=== PATIENT | male | born 1970 | race Caucasian/White ===

== ENCOUNTER 2020-11-14 20:18 | Inpatient (IN) | payer BC, MEDICAID ==
[~2020-11-14] VITALS: Ht 175.3 cm; Wt 92.3 kg
[~2020-11-14 20:18] MED LIST: ALBU6.7H3 INH; IBUP-1572 PO; LANTUS SQ; etomidate 2mg/ml inj. ONE; sod chloride 0.9% 10ml flush syringe IV ONE
[2020-11-14] MEDS ORDERED: dexamethasone sod phosphate 10mg/ml inj IV STA (20:53)
[2020-11-14] MEDS ORDERED: temazepam 15mg capsule PO PRN (21:00)
[2020-11-14 21:05] LABS: ALANINE AMINOTRANSFERASE 103 U/L (12-78); ALBUMIN 2.8 G/DL (3.4-5.0); ALBUMIN/GLOBULIN RATIO 0.6 (1.1-1.5); ALKALINE PHOSPHATASE 59 IU/L (46-116); ANION GAP 13 (8-16); ASPARTATE AMINO TRANSFERASE 87 U/L (10-37); BILIRUBIN,TOTAL 0.4 MG/DL (0.1-1.0); BLOOD UREA NITROGEN 20 MG/DL (7-18); BUN/CREATININE RATIO 18.7 (5.4-32.0); CHLORIDE 94 MMOL/L (99-107); CREATININE 1.07 MG/DL (0.60-1.10); GLUCOSE 246 MG/DL (70-104); POTASSIUM 3.8 MMOL/L (3.5-5.1); SODIUM 130 MMOL/L (135-145); TOTAL CARBON DIOXIDE 23.2 MMOL/L (24-32); TOTAL PROTEIN 7.6 G/DL (6.4-8.2); eGFR 73 ML/MIN
[2020-11-14 21:07] LABS: ABG BASE EXCESS -3.3 mmol/L (-2.0-2.0); ABG OXYGEN SATURATION 92.8 % (94-97); ABG PCO2 (T) 26.5 mmHg (35.0-48.0); ABG PO2 (T) 70.4 mmHg (75.0-100.0); ALLEN'S TEST POSITIVE; FCOHb 0.3 % (0.0-3.9); FLOW 15 L/min; FMetHb 0.2 % (0.0-1.5); FO2Hb 92.3 % (94-97); PATIENT TEMPERATURE 38.2; TOTAL HEMOGLOBIN 17.1 G/dl (14.0-18.0)
[2020-11-14] MEDS ORDERED: CefTRIAXone/D5W-Rocephin 1gm 50 ML IV ONE (21:10)
[2020-11-14] MEDS ORDERED: azithromycin/NS 500mg/250ml 250 ML IV ONE (21:10)
[2020-11-14 21:26] LABS: D-DIMER 0.33 MG/L FEU (0-0.50); PARTIAL THROMBOPLASTIN TIME 33 SECONDS (22-32)
[2020-11-14 21:31] LABS: BASOPHILS % (AUTO) 0.2 % (0-1); EOSINOPHILS % (AUTO) 0 % (0-6); HEMATOCRIT 48.1 % (42.0-52.0); HEMOGLOBIN 16.4 g/dl (14.0-17.9); LYMPHOCYTES # (AUTO) 1.1 X10'3 (1.1-4.8); LYMPHOCYTES % (AUTO) 19.8 % (21-51); MEAN CORPUSCULAR HEMOGLOBIN 31.7 PG (27.0-31.0); MEAN CORPUSCULAR HGB CONC 34.2 g/dL (33.0-36.5); MEAN CORPUSCULAR VOLUME 92.8 FL (78-98); MEAN PLATELET VOLUME 7.5 FL (7.4-10.4); MONOCYTES # (AUTO) 0.4 X10'3 (0-0.9); PLATELET COUNT 228 X10'3 (140-440); RED BLOOD COUNT 5.18 X10'6 (4.70-6.10); RED CELL DISTRIBUTION WIDTH 13.4 % (11.5-14.5); WHITE BLOOD COUNT 5.5 X10'3 (4.5-11.0)
[2020-11-14 21:40] LABS: C-REACTIVE PROTEIN 6.27 MG/DL (0.0-0.5); FERRITIN 2198 NG/ML (26-388); LACTATE DEHYDROGENASE 508 U/L (85-227)
[2020-11-14] MEDS ORDERED: ASPI-1397 PO (22:06)
[2020-11-14] MEDS ORDERED: ATOR40TA72 PO (22:06)
[2020-11-14] MEDS ORDERED: FLAS1KIT2 (22:06)
[2020-11-14] MEDS ORDERED: LIRA0.6P SQ (22:06)
--- NOTE | 2020-11-14 22:19 | NUR ---
PER PT, OK TO GIVE INFO TO , ANA - PTS UPDATED ON PLAN OF CARE. SHE IS AWARE PT IS BEING ADMITTED AND THAT THERE IS A NO VISITOR POLICY FOR COVID POSITIVE PATIENTS.
[2020-11-14] MEDS ORDERED: ondansetron/PF 4mg/2ml inj IV PRN (22:45)
[2020-11-14] MEDS ORDERED: HYDROcodone/acetaminophen 10/325mg tab PO PRN (22:45)
[2020-11-14] MEDS ORDERED: magnesium hydroxide 30ml (MOM) UD suspension PO PRN (22:45)
[2020-11-14] MEDS ORDERED: normal saline 1000ml 1,000 ML IV SCH (22:45)
[2020-11-14] MEDS ORDERED: morphine 2 MG/ML inj. syringe IV PRN ×2 (22:45)
[2020-11-14] MEDS ORDERED: HYDROcodone/acetaminophen 5mg/325mg tablet PO PRN (22:45)
[2020-11-14] MEDS ORDERED: bisacodyl 10mg suppository rectal RC PRN (22:45)
[2020-11-14] MEDS ORDERED: acetaminophen 325mg tablet PO PRN ×2 (22:45)
[2020-11-14] MEDS ORDERED: HYDROmorphone inj. 0.5 MG/0.5 ML DISP.SYRIN IV PRN (22:45)
[2020-11-14] MEDS ORDERED: ondansetron 4mg rapidly disintigrating tab PO PRN (22:45)
[2020-11-14] MEDS ORDERED: diphenhydrAMINE 50 mg/ml inj IV PRN (22:45)
[2020-11-14] MEDS ORDERED: diphenhydrAMINE 25mg capsule PO PRN (22:45)
[2020-11-14] MEDS ORDERED: mag hydrox/Alum hydrox/simeth 30ml oral suspension PO PRN (22:45)
[2020-11-14] MEDS ORDERED: acetaminophen 650mg rectal suppository RC PRN (22:45)
[2020-11-14] MEDS ORDERED: ipratropium/albuterol 3ml nebule NEB PRN (22:45)
[2020-11-14] MEDS ORDERED: MESSAGE TO PHARMACY PO ONE (22:50)
[2020-11-14] MEDS ORDERED: dextrose ORAL solution 15 GM/59 ML bottle PO PRN ×2 (22:50)
[2020-11-14] MEDS ORDERED: glucagon, human recombinant 1mg kit SUBCUT PRN (22:50)
[2020-11-14] MEDS ORDERED: dextrose 50%-water 50ml dispensing syringe IV PRN (22:50)
[2020-11-14 23:30] LABS: HEMOGLOBIN A1C 8.6 % (4.5-6.2)
[2020-11-14 23:48] LABS: CREATINE KINASE 330 U/L (39-308); ETHANOL < 0.010 GM/DL (0.0-0.010); LIPASE 329 U/L (73-393); MAGNESIUM 2.1 MG/DL (1.5-2.4); PHOSPHORUS 3.4 MG/DL (2.3-4.5)
--- NOTE | 2020-11-15 01:27 | NUR ---
RT paged, called back and discussed concerning pts CT and SPO2.Per RT, pt would tolerate with NR 15L, will come assess.
--- NOTE | 2020-11-15 01:40 | NUR ---
RT AT BEDSIDE, TRIALING PT ON HIGH FLOW N/C, PT SAT'S TO THE 90'S WITH NO CHANGE IN WOB. WILL GO TO CT, CT PAGED.
--- NOTE | 2020-11-15 02:18 | NUR ---
PT RETURNED FROM CT, SATS 88% ON ONE OXYGEN SOURCE, TRANSFERRED TO HOSPITAL BED.
--- NOTE | 2020-11-15 03:00 | NUR ---
PT. TOLERATING WATER, REQUESTING APPLESAUCE.
--- NOTE | 2020-11-15 03:24 | NUR ---
PT UP TO BEDSIDE COMMODE, SATURATIONS DOWN TO MID 80'S ON 30 LPM. HAS LOOSE DIARRHEA BM WITH URINE OUT, UNABLE TO CATCH U/A. MOVED BACK INTO BED, COACHED BREATHING, SATURATIONS IMPROVED TO 91%, PT. GIVEN APPLESAUCE AND CALL LIGHT.
--- NOTE | 2020-11-15 06:43 | NUR ---
SPOKE TO ANA UPDATED ON POC.
[2020-11-15 07:18] LABS: BASOPHILS % (AUTO) 0.3 % (0-1); EOSINOPHILS % (AUTO) 0 % (0-6); HEMATOCRIT 46.1 % (42.0-52.0); HEMOGLOBIN 15.7 g/dl (14.0-17.9); LYMPHOCYTES # (AUTO) 0.8 X10'3 (1.1-4.8); LYMPHOCYTES % (AUTO) 19.4 % (21-51); MEAN CORPUSCULAR HEMOGLOBIN 31.9 PG (27.0-31.0); MEAN CORPUSCULAR HGB CONC 34.2 g/dL (33.0-36.5); MEAN CORPUSCULAR VOLUME 93.3 FL (78-98); MEAN PLATELET VOLUME 7.3 FL (7.4-10.4); MONOCYTES # (AUTO) 0.3 X10'3 (0-0.9); MONOCYTES % (AUTO) 6.7 % (2-12); NEUTROPHILS # (AUTO) 2.9 X10'3 (1.8-7.7); NEUTROPHILS % (AUTO) 73.6 % (42-75); PLATELET COUNT 230 X10'3 (140-440); RED BLOOD COUNT 4.94 X10'6 (4.70-6.10); RED CELL DISTRIBUTION WIDTH 13.3 % (11.5-14.5); WHITE BLOOD COUNT 3.9 X10'3 (4.5-11.0)
[2020-11-15 07:48] LABS: ALANINE AMINOTRANSFERASE 99 U/L (12-78); ALBUMIN 2.5 G/DL (3.4-5.0); ALBUMIN/GLOBULIN RATIO 0.6 (1.1-1.5); ALKALINE PHOSPHATASE 55 IU/L (46-116); ANION GAP 11 (8-16); ASPARTATE AMINO TRANSFERASE 77 U/L (10-37); BILIRUBIN,TOTAL 0.4 MG/DL (0.1-1.0); BLOOD UREA NITROGEN 19 MG/DL (7-18); BUN/CREATININE RATIO 22.4 (5.4-32.0); CALCIUM 7.8 MG/DL (8.5-10.1); CHLORIDE 100 MMOL/L (99-107); CHOL/HDL RATIO 4.7 (0.00-4.99); CHOLESTEROL 85 MG/DL (0-200); CREATININE 0.85 MG/DL (0.60-1.10); GLUCOSE 278 MG/DL (70-104); HDL CHOLESTEROL 18 MG/DL (35-60); LDL CHOLESTEROL 41 MG/DL (50-100); POTASSIUM 4.2 MMOL/L (3.5-5.1); SODIUM 134 MMOL/L (135-145); TOTAL CARBON DIOXIDE 23.2 MMOL/L (24-32); TOTAL PROTEIN 6.9 G/DL (6.4-8.2); TRIGLYCERIDES 150 MG/DL (20-135); eGFR > 90 ML/MIN
[2020-11-15] MEDS ORDERED: azithromycin 250mg tablet PO SCH (08:00)
[2020-11-15] MEDS: docusate sod 100mg capsule PO SCH ×2 (08:00→20:37)
[2020-11-15] MEDS ORDERED: dexamethasone inj 6 MG in normal saline 50ml IV soln 50 ML IV SCH (08:00)
[2020-11-15] MEDS: enoxaparin 40mg/0.4ml syringe SUBCUT SCH ×2 (08:27→20:38)
[2020-11-15] MEDS: dexamethasone 4mg/ml inj IV SCH ×2 (08:28→20:37)
[2020-11-15] MEDS: pantoprazole 40mg Tablet.DR PO SCH (08:28)
[2020-11-15] MEDS ORDERED: REMDESIVIR INJ 200 MG in normal saline 100ml IV soln 100 ML IV ONE (08:40)
--- NOTE | 2020-11-15 11:15 | NUR ---
RELIEVING NURSE FOR BREAK. PT IS RESTING QUIETLY ON BED WITH NRB AND HI FLOW SALTER, 02 SAT IS 85%. PT STATED HE GETS SOB WITH MINIMAL ACTIVITY, JUST USED BEDSIDE COMMODE. , TALKING 5 TO 6 WORD SENTENCES, EATING BREAKFAST,
--- NOTE | 2020-11-15 11:21 | NUR ---
REPORT TO TIFF LUKE REGARDING PULSE OX READING
--- NOTE | 2020-11-15 11:24 | NUR ---
spoke to rt regarding pt spo2 85 -86 % on 15l salter and 15 l non rebreather as per rt staed that they will come by to see the pt ,paged dr corrigan have not recived call yet.as per rt change neb tx to mdi albuterol as pt is covid positive.
--- NOTE | 2020-11-15 11:25 | NUR ---
PAGED DR ZHAO FOR THE ORDERS.
--- NOTE | 2020-11-15 11:34 | NUR ---
RT AT BEDSIDE.
--- NOTE | 2020-11-15 11:45 | NUR ---
DR ZHAO CAME TO SEE THE PT AFTER PAGING THE DR ,NOTIFIED PT CONDITION TO THE PROVIDER THAT PT HAS CARDIA MONITOR CHANGES AND CLAMMY,PT SPO2 IN BTW 83-88 ON 30 L NON REBREATHER AND SALTER AND PT SPO2 DROP DOWN WHEN PT GETS UP TO USE BEDSIDE COMMODE OR EAT ,PT IS NOT DOING WELL OVERALL . PER DR ZHAO ORDER STAT EKG,HIGH FLOW O2 IF DOES NOT WORK THEN BIPAP ORDER,JUDGE CATHETER FOR BEDREST. WILL FOLLOW THE ORDERS.
[2020-11-15] MEDS: ALBUTEROL INHALER 1 PUFF/90 MCG INHALER IH PRN (11:56)
--- NOTE | 2020-11-15 12:17 | NUR ---
RT AT THE BEDSIDE .PT SPO2 93 % ON BIPAP FIO2 100%.
[2020-11-15] MEDS ORDERED: METF-900 PO (12:20)
[2020-11-15] MEDS ORDERED: CHOL20003 PO (12:20)
[2020-11-15] MEDS ORDERED: VITA1TAB20 PO (12:20)
[2020-11-15] MEDS ORDERED: FENO134C PO (12:20)
--- NOTE | 2020-11-15 12:28 | NUR ---
called pt and lft message to call us back to get update on status.
--- NOTE | 2020-11-15 12:29 | NUR ---
spoke to dr corrigan earlier regarding pt insulin that its not given as pt didn't had anything to eat .will admin insulin once pt is doing well.
--- NOTE | 2020-11-15 12:30 | NUR ---
paged the hospitalist shekhar to get order for abg.
--- NOTE | 2020-11-15 12:46 | NUR ---
called pharmacy to send humolog.
--- NOTE | 2020-11-15 12:55 | NUR ---
spoke to dr corrigan regarding pt status that pt spo2 94 % on bipap fio2 100%,as per md no need for abg ,as per md keep spo2 above 88-90%,if spo2 drop then intubate the pt.
[2020-11-15] MEDS: insulin Lispro (HumaLOG) vial - multi-dose SQ SCH (13:12)
--- NOTE | 2020-11-15 13:23 | NUR ---
update the pt shakeel at this no [phone] .
[2020-11-15 14:02] LABS: CLARITY,URINE CLEAR (Clear); COLOR,URINE YELLOW (Yellow); GLUCOSE, URINE >=1000 mg/dl (Neg); KETONES,URINE TRACE mg/dl (Neg); LEUKOCYTE ESTERASE ,URINE NEGATIVE (Neg); NITRITES, URINE NEGATIVE (Neg); OCCULT BLOOD,URINE NEGATIVE (Neg); PH,URINE 5.5 (4.8-8.0); PROTEIN,URINE 30 mg/dl (Neg); UROBILINOGEN,URINE 0.2 E.U/dL (0.2-1.0)
[2020-11-15 14:07] LABS: UA COLLECTION TYPE FOLEY CATH
[2020-11-15 14:12] LABS: URINE AMPHETAMINE SCREEN NEGATIVE (Neg); URINE BARBITUATE SCREEN NEGATIVE (Neg); URINE BENZODIAZEPINES SCREEN NEGATIVE (Neg); URINE CANNABINOID SCREEN NEGATIVE (Neg); URINE COCAINE SCREEN NEGATIVE (Neg); URINE METHADONE SCREEN NEGATIVE (Neg); URINE OPIATE SCREEN NEGATIVE (Neg); URINE PHENCYCLIDINE SCREEN NEGATIVE (Neg)
[2020-11-15 14:17] LABS: ABG BASE EXCESS -3.3 mmol/L (-2.0-2.0); ABG HCO3 19.4 mmol/L (22.0-26.0); ABG OXYGEN SATURATION 92.3 % (94-97); ABG PCO2 (T) 29.4 mmHg (35.0-48.0); ABG PO2 (T) 62.1 mmHg (75.0-100.0); ALLEN'S TEST POSITIVE; FCOHb 0.4 % (0.0-3.9); FMetHb 0.2 % (0.0-1.5); FO2Hb 91.7 % (94-97); RESPIRATORY RATE 16 b/min; TIDAL VOLUME 924 mL
[2020-11-15 14:25] LABS: MUCUS STRANDS FEW /LPF (Neg); SQUAMOUS EPITHELIAL CELL,UR FEW /LPF (FEW)
[2020-11-15 14:26] LABS: BACTERIA,URINE 1+ /HPF (Neg); COARSE GRANULAR CAST 0-3 /LPF (NEGATIVE); HYALINE CASTS 0-3 /LPF (NEGATIVE)
[2020-11-15 14:27] LABS: RBC,URINE 0-2 /HPF (0-2); WBC,URINE 0-4 /HPF (0-4)
--- NOTE | 2020-11-15 15:45 | NUR ---
dr corrigan came by to er ,informed that pt is doing good now ,pt spo2 92-95 % on bipap .no orders at this time ,will cont to monitor.
--- NOTE | 2020-11-15 17:05 | NUR ---
dr shekhar fraser at bedside ,doing assessment at this time .will cont to monitor.spo2 93% on bipap.
--- NOTE | 2020-11-15 17:10 | NUR ---
dr corrigan came to nurses station and stated taht pt is doing good ,no orders for rgt now.
--- NOTE | 2020-11-15 18:57 | NUR ---
Pt is on BiPAP at this time, doing okay, only complains of the mask feeling uncomfortable. RT adjusted it and pt stated it feels a little better. Pt is on 18/10, 16, and 100% FiO2 and appears in respiratory distress with a rate of 27 breaths per minute. However, pt states they do not feel short of breath at this time.
[2020-11-15] MEDS ORDERED: CefTRIAXone/D5W-Rocephin 1gm 50 ML IV SCH (21:00)
--- NOTE | 2020-11-15 21:16 | NUR ---
called asking for her to be fed. Tech made aware to get him food.
--- NOTE | 2020-11-15 22:32 | NUR ---
he is eating, holding his NRB to his face between bites. He is holding his saturations between 88-90% doing this. Informed him to call me when he was done and I would put him on bipap again.
--- NOTE | 2020-11-15 23:07 | NUR ---
Pt on bedpan. Opted to keep NRB on while on bedpan. Sat 82%.
--- NOTE | 2020-11-15 23:27 | NUR ---
after bm he was cleansed, loose bm. he got very SOB, desated to 82% and RT just happened to walk in. Back on bipap. Cool washclothes to his skin to have him better. Emptied to melendez catheter, dumped the bedpan. RT decreased his oxygen to 85% and decreased his tidal volume. Pt given lots of encouragement. He actually did very well and rebounded to 100% within 1 minute. He was very anxious. But calmed so nicely with my encouragement and cooling measures. His HOB is elevated. His room was cleaned/straightened up. His call light is right by him, as his cell phone.
[2020-11-16] VITALS (12 sets, daily range): BP systolic 115–137; BP diastolic 66–82
--- NOTE | 2020-11-16 00:59 | NUR ---
checked in on the pt. He is doing fairly well. He has no needs. Dimmed the lights for him.
[2020-11-16 07:39] LABS: BASOPHILS % (AUTO) 0.2 % (0-1); EOSINOPHILS % (AUTO) 0 % (0-6); HEMATOCRIT 46.2 % (42.0-52.0); HEMOGLOBIN 15.8 g/dl (14.0-17.9); LYMPHOCYTES % (AUTO) 14.1 % (21-51); MEAN CORPUSCULAR HEMOGLOBIN 32.1 PG (27.0-31.0); MEAN CORPUSCULAR HGB CONC 34.1 g/dL (33.0-36.5); MEAN CORPUSCULAR VOLUME 94.1 FL (78-98); MEAN PLATELET VOLUME 7.5 FL (7.4-10.4); MONOCYTES # (AUTO) 0.7 X10'3 (0-0.9); MONOCYTES % (AUTO) 10.8 % (2-12); NEUTROPHILS # (AUTO) 5.2 X10'3 (1.8-7.7); NEUTROPHILS % (AUTO) 74.9 % (42-75); PLATELET COUNT 319 X10'3 (140-440); RED BLOOD COUNT 4.91 X10'6 (4.70-6.10); RED CELL DISTRIBUTION WIDTH 13.4 % (11.5-14.5); WHITE BLOOD COUNT 6.9 X10'3 (4.5-11.0)
[2020-11-16 08:02] LABS: ALANINE AMINOTRANSFERASE 98 U/L (12-78); ALBUMIN 2.5 G/DL (3.4-5.0); ALBUMIN/GLOBULIN RATIO 0.6 (1.1-1.5); ALKALINE PHOSPHATASE 62 IU/L (46-116); ANION GAP 14 (8-16); ASPARTATE AMINO TRANSFERASE 51 U/L (10-37); BILIRUBIN,TOTAL 0.3 MG/DL (0.1-1.0); BLOOD UREA NITROGEN 28 MG/DL (7-18); BUN/CREATININE RATIO 31.1 (5.4-32.0); C-REACTIVE PROTEIN 3.07 MG/DL (0.0-0.5); CALCIUM 8.2 MG/DL (8.5-10.1); CHLORIDE 102 MMOL/L (99-107); GLUCOSE 333 MG/DL (70-104); SODIUM 135 MMOL/L (135-145); TOTAL CARBON DIOXIDE 18.9 MMOL/L (24-32); TOTAL PROTEIN 6.8 G/DL (6.4-8.2); eGFR 89 ML/MIN
[2020-11-16 08:03] LABS: LACTATE DEHYDROGENASE 451 U/L (85-227); POTASSIUM 4.1 MMOL/L (3.5-5.1)
--- NOTE | 2020-11-16 08:15 | NUR ---
ANA CALLED. WANTED UPDATE. SAID GOING TO SEE HIM NOW WILL CALL HER BACK.
[2020-11-16 08:19] LABS: D-DIMER 0.31 MG/L FEU (0-0.50)
[2020-11-16] MEDS: REMDESIVIR INJ 100 MG in normal saline 100ml IV soln 100 ML IV SCH ×2 (08:29→08:31)
[2020-11-16] MEDS: dexamethasone 4mg/ml inj IV SCH ×2 (08:30→20:23)
[2020-11-16] MEDS: docusate sod 100mg capsule PO SCH ×2 (08:30→20:00)
[2020-11-16] MEDS: pantoprazole 40mg Tablet.DR PO SCH (08:31)
[2020-11-16] MEDS: enoxaparin 40mg/0.4ml syringe SUBCUT SCH ×2 (08:33→20:23)
--- NOTE | 2020-11-16 09:15 | NUR ---
UP TO BSC LARGE AMT OF DIARRHEA, BROWN IN COLOR. PT ALSO HAD COUGHING EPISODE, 02 SAT UP TO 96% ENCOURAGE PT TO DB& C.
--- NOTE | 2020-11-16 10:03 | NUR ---
CALLED ANA AND GAVE HER UPDATE. PT GOING TO ROOM 204.
--- NOTE | 2020-11-16 10:30 | NUR ---
received pt from CONSUMER LOAN OFFICER. pt assisted to bed placed on cardiac bedside monitor. Pt alert and oriented x4. pt offers no complaints of pain. SCDs placed on pt.
[2020-11-16 11:19] LABS: ABG BASE EXCESS -3.6 mmol/L (-2.0-2.0); ABG HCO3 19.4 mmol/L (22.0-26.0); ABG OXYGEN SATURATION 93.2 % (94-97); ABG PCO2 (T) 30.3 mmHg (35.0-48.0); ABG PO2 (T) 67.7 mmHg (75.0-100.0); ALLEN'S TEST POSITIVE; FCOHb 0.1 % (0.0-3.9); FMetHb 0.3 % (0.0-1.5); FO2Hb 92.8 % (94-97); RESPIRATORY RATE 16 b/min; TIDAL VOLUME 584 mL; TOTAL HEMOGLOBIN 16.1 G/dl (14.0-18.0)
--- NOTE | 2020-11-16 12:04 | NUR ---
DM Consult: Pt admit DX COVID-19 PNA and acute respiratory failure hx DM A1C 8.6 per EMR. Pt transferred to ICU this AM; DM ed deferred at this time though would benefit from DM ed once more stable prior to discharge. Addendum: 11/16/20 at [address] Amended: Links added.
[2020-11-16 12:10] LABS: TROPONIN I < 0.04 NG/ML (0.0-0.05)
--- NOTE | 2020-11-16 13:25 | NUR ---
pt placed on HFNC at 50% drinking a glucerna
[2020-11-16] MEDS: NUT.TX.GLUC.INTOLER,LAC-FR,SOY (GLUCERNA) 237 ML PO SCH ×3 (13:35→21:31)
[2020-11-16] MEDS: insulin Lispro (HumaLOG) vial - multi-dose SQ SCH ×2 (20:05→21:36)
[2020-11-16] MEDS ORDERED: LOPERAMIDE 2 mg/15 ml oral solution UD PO PRN (20:10)
[2020-11-16] MEDS: insulin glargine (Lantus) pen - multi-dose SQ SCH (21:37)
[2020-11-17] VITALS (23 sets, daily range): BP systolic 95–138; BP diastolic 55–78
--- NOTE | 2020-11-17 03:30 | NUR ---
RN Note -Pt proning and tolerating well. Oxygen saturations improving
[2020-11-17 06:09] LABS: BASOPHILS % (AUTO) 0.2 % (0-1); EOSINOPHILS % (AUTO) 0 % (0-6); HEMOGLOBIN 15.2 g/dl (14.0-17.9); LYMPHOCYTES # (AUTO) 0.7 X10'3 (1.1-4.8); LYMPHOCYTES % (AUTO) 9.6 % (21-51); MEAN CORPUSCULAR HEMOGLOBIN 31.8 PG (27.0-31.0); MEAN CORPUSCULAR HGB CONC 33.9 g/dL (33.0-36.5); MEAN PLATELET VOLUME 7.3 FL (7.4-10.4); MONOCYTES # (AUTO) 0.6 X10'3 (0-0.9); MONOCYTES % (AUTO) 8.4 % (2-12); NEUTROPHILS # (AUTO) 5.8 X10'3 (1.8-7.7); NEUTROPHILS % (AUTO) 81.8 % (42-75); PLATELET COUNT 361 X10'3 (140-440); RED BLOOD COUNT 4.78 X10'6 (4.70-6.10); RED CELL DISTRIBUTION WIDTH 13.5 % (11.5-14.5); WHITE BLOOD COUNT 7.1 X10'3 (4.5-11.0)
[2020-11-17 06:28] LABS: D-DIMER < 0.19 MG/L FEU (0-0.50)
[2020-11-17 07:07] LABS: ALANINE AMINOTRANSFERASE 74 U/L (12-78); ALBUMIN 2.4 G/DL (3.4-5.0); ALBUMIN/GLOBULIN RATIO 0.6 (1.1-1.5); ALKALINE PHOSPHATASE 55 IU/L (46-116); ANION GAP 12 (8-16); ASPARTATE AMINO TRANSFERASE 28 U/L (10-37); BILIRUBIN,TOTAL 0.4 MG/DL (0.1-1.0); BLOOD UREA NITROGEN 28 MG/DL (7-18); CALCIUM 8.3 MG/DL (8.5-10.1); CHLORIDE 105 MMOL/L (99-107); GLUCOSE 275 MG/DL (70-104); LACTATE DEHYDROGENASE 462 U/L (85-227); POTASSIUM 4.5 MMOL/L (3.5-5.1); SODIUM 138 MMOL/L (135-145); TOTAL CARBON DIOXIDE 21.1 MMOL/L (24-32); TOTAL PROTEIN 6.6 G/DL (6.4-8.2); eGFR > 90 ML/MIN
[2020-11-17] MEDS: REMDESIVIR INJ 100 MG in normal saline 100ml IV soln 100 ML IV SCH (08:29)
[2020-11-17] MEDS: docusate sod 100mg capsule PO SCH ×2 (08:30→20:00)
[2020-11-17] MEDS: pantoprazole 40mg Tablet.DR PO SCH (08:30)
[2020-11-17] MEDS: enoxaparin 40mg/0.4ml syringe SUBCUT SCH (08:31)
[2020-11-17] MEDS: dexamethasone 4mg/ml inj IV SCH ×2 (08:32→20:59)
[2020-11-17] MEDS: insulin Lispro (HumaLOG) vial - multi-dose SQ SCH ×4 (08:53→23:07)
[2020-11-17] MEDS ORDERED: ibuprofen tablet 400 MG TABLET PO PRN (10:35)
[2020-11-17] MEDS ORDERED: insulin glargine (Lantus) pen - multi-dose SQ PRN (10:35)
[2020-11-17] MEDS ORDERED: guaiFENesin/DM/phenylephrine syrup 120ml bottle PO PRN (11:10)
[2020-11-17] MEDS ORDERED: guaiFENesin 200 MG/10 ML oral syrup UD cup PO PRN ×2 (11:20)
[2020-11-17] MEDS ORDERED: metFORMIN 500mg tablet PO SCH (12:00)
[2020-11-17] MEDS: guaiFENesin/DM 10ml UD oral syrup PO PRN ×2 (13:22→21:02)
[2020-11-17] MEDS: ALBUTEROL INHALER 1 PUFF/90 MCG INHALER IH PRN (13:47)
[2020-11-17] MEDS: loperamide 2mg capsule PO PRN (21:04)
[2020-11-17] MEDS: insulin glargine (Lantus) pen - multi-dose SQ SCH (23:06)
[2020-11-18] VITALS (25 sets, daily range): BP systolic 111–151; BP diastolic 55–77
[2020-11-18 06:15] LABS: BASOPHILS % (AUTO) 0.1 % (0-1); EOSINOPHILS % (AUTO) 0 % (0-6); HEMATOCRIT 44.3 % (42.0-52.0); HEMOGLOBIN 15.1 g/dl (14.0-17.9); LYMPHOCYTES # (AUTO) 0.6 X10'3 (1.1-4.8); LYMPHOCYTES % (AUTO) 7.4 % (21-51); MEAN CORPUSCULAR HEMOGLOBIN 31.9 PG (27.0-31.0); MEAN CORPUSCULAR VOLUME 93.7 FL (78-98); MEAN PLATELET VOLUME 7.4 FL (7.4-10.4); MONOCYTES # (AUTO) 0.5 X10'3 (0-0.9); MONOCYTES % (AUTO) 5.5 % (2-12); NEUTROPHILS # (AUTO) 7.5 X10'3 (1.8-7.7); PLATELET COUNT 388 X10'3 (140-440); RED BLOOD COUNT 4.73 X10'6 (4.70-6.10); RED CELL DISTRIBUTION WIDTH 13.3 % (11.5-14.5); WHITE BLOOD COUNT 8.6 X10'3 (4.5-11.0)
[2020-11-18 06:28] LABS: D-DIMER 0.48 MG/L FEU (0-0.50)
[2020-11-18 06:34] LABS: ALANINE AMINOTRANSFERASE 74 U/L (12-78); ALBUMIN 2.4 G/DL (3.4-5.0); ALBUMIN/GLOBULIN RATIO 0.6 (1.1-1.5); ALKALINE PHOSPHATASE 49 IU/L (46-116); ANION GAP 11 (8-16); ASPARTATE AMINO TRANSFERASE 36 U/L (10-37); BILIRUBIN,TOTAL 0.4 MG/DL (0.1-1.0); BLOOD UREA NITROGEN 24 MG/DL (7-18); BUN/CREATININE RATIO 32.4 (5.4-32.0); C-REACTIVE PROTEIN 0.68 MG/DL (0.0-0.5); CALCIUM 8.3 MG/DL (8.5-10.1); CHLORIDE 105 MMOL/L (99-107); CREATININE 0.74 MG/DL (0.60-1.10); GLUCOSE 174 MG/DL (70-104); LACTATE DEHYDROGENASE 580 U/L (85-227); POTASSIUM 4.3 MMOL/L (3.5-5.1); SODIUM 140 MMOL/L (135-145); TOTAL CARBON DIOXIDE 24.3 MMOL/L (24-32); TOTAL PROTEIN 6.4 G/DL (6.4-8.2); eGFR > 90 ML/MIN
[2020-11-18] MEDS: docusate sod 100mg capsule PO SCH ×2 (06:56→19:52)
[2020-11-18] MEDS ORDERED: enoxaparin 40mg/0.4ml syringe SUBCUT SCH (08:00)
[2020-11-18] MEDS ORDERED: LIRAGLUTIDE SQ SCH (08:00)
[2020-11-18] MEDS: REMDESIVIR INJ 100 MG in normal saline 100ml IV soln 100 ML IV SCH (08:35)
[2020-11-18] MEDS: pantoprazole 40mg Tablet.DR PO SCH (08:35)
[2020-11-18] MEDS: fenofibrate 145mg tablet PO SCH (08:35)
[2020-11-18] MEDS: vitamin B comp w/Vit. C tab 1 TAB TABLET PO SCH (08:36)
[2020-11-18] MEDS: cholecalciferol (vitamin D3) 1,000 unit (25mcg) tablet PO SCH (08:36)
[2020-11-18] MEDS: aspirin 81mg, enteric-coated 1 TAB TABLET.DR PO SCH (08:36)
[2020-11-18] MEDS: atorvastatin 20mg tablet PO SCH (08:36)
[2020-11-18] MEDS: enoxaparin 40mg/0.4ml syringe SUBCUT SCH ×2 (08:37→19:52)
[2020-11-18] MEDS: NUT.TX.GLUC.INTOLER,LAC-FR,SOY (GLUCERNA) 237 ML PO SCH ×3 (08:37→18:00)
[2020-11-18] MEDS: dexamethasone 4mg/ml inj IV SCH ×2 (08:37→19:52)
--- NOTE | 2020-11-18 09:30 | NUR ---
Problems reprioritized. Patient report given, questions answered & plan of care reviewed with Danielle LUKE.
--- NOTE | 2020-11-18 09:30 | NUR ---
Patient in room ICU 2046. I have received report from Gabe LUKE and had the opportunity to ask questions and assume patient care. Addendum: 11/18/20 at 1104 by Kacie Barrett RN at 0930: pt sitting up high fowers in bed, breathing evenly. HF nasal cannula t 50LPM 100% FIO2. pt without s/sx acute distress. pt alert to wave from outside airborne precaution room, alert to voice inside room.
[2020-11-18] MEDS: insulin Lispro (HumaLOG) vial - multi-dose SQ SCH ×4 (10:58→21:48)
--- NOTE | 2020-11-18 17:42 | NUR ---
Pt spo2 drop to 82 with associated bradycardia to 48 without obvious trigger. RT Rosalia on floor and assisted to put pt on Bipap at 100% FIO2 (switched from high flow NC 70LPM 100% FIO2.) nurse remained at bedside . pt spo2 stable at this time, HR mid 50's per henna baseline.
--- NOTE | 2020-11-18 18:26 | NUR ---
Problems reprioritized. Patient report given, questions answered & plan of care reviewed with Zee Torres RN.
[2020-11-18] MEDS: insulin glargine (Lantus) pen - multi-dose SQ SCH (21:46)
[2020-11-19] VITALS (23 sets, daily range): BP systolic 119–157; BP diastolic 55–75
[2020-11-19 06:12] LABS: BASOPHILS % (AUTO) 0.2 % (0-1); EOSINOPHILS % (AUTO) 0 % (0-6); HEMATOCRIT 45.1 % (42.0-52.0); HEMOGLOBIN 15.7 g/dl (14.0-17.9); LYMPHOCYTES # (AUTO) 0.6 X10'3 (1.1-4.8); LYMPHOCYTES % (AUTO) 5.7 % (21-51); MEAN CORPUSCULAR HEMOGLOBIN 32.4 PG (27.0-31.0); MEAN CORPUSCULAR HGB CONC 34.7 g/dL (33.0-36.5); MEAN CORPUSCULAR VOLUME 93.3 FL (78-98); MEAN PLATELET VOLUME 7.5 FL (7.4-10.4); MONOCYTES # (AUTO) 0.5 X10'3 (0-0.9); MONOCYTES % (AUTO) 4.3 % (2-12); NEUTROPHILS # (AUTO) 9.4 X10'3 (1.8-7.7); NEUTROPHILS % (AUTO) 89.8 % (42-75); PLATELET COUNT 424 X10'3 (140-440); RED BLOOD COUNT 4.84 X10'6 (4.70-6.10); RED CELL DISTRIBUTION WIDTH 13.2 % (11.5-14.5); WHITE BLOOD COUNT 10.4 X10'3 (4.5-11.0)
[2020-11-19 06:21] LABS: D-DIMER 0.56 MG/L FEU (0-0.50)
[2020-11-19 06:52] LABS: ALANINE AMINOTRANSFERASE 76 U/L (12-78); ALBUMIN 2.3 G/DL (3.4-5.0); ALBUMIN/GLOBULIN RATIO 0.6 (1.1-1.5); ALKALINE PHOSPHATASE 68 IU/L (46-116); ANION GAP 11 (8-16); ASPARTATE AMINO TRANSFERASE 27 U/L (10-37); BILIRUBIN,TOTAL 0.5 MG/DL (0.1-1.0); BLOOD UREA NITROGEN 23 MG/DL (7-18); BUN/CREATININE RATIO 31.5 (5.4-32.0); C-REACTIVE PROTEIN 2.22 MG/DL (0.0-0.5); CALCIUM 8.2 MG/DL (8.5-10.1); CHLORIDE 106 MMOL/L (99-107); CREATININE 0.73 MG/DL (0.60-1.10); GLUCOSE 224 MG/DL (70-104); LACTATE DEHYDROGENASE 499 U/L (85-227); POTASSIUM 4.7 MMOL/L (3.5-5.1); SODIUM 141 MMOL/L (135-145); TOTAL CARBON DIOXIDE 23.8 MMOL/L (24-32); TOTAL PROTEIN 6.4 G/DL (6.4-8.2); eGFR > 90 ML/MIN
[2020-11-19] MEDS: docusate sod 100mg capsule PO SCH ×2 (08:44→20:00)
[2020-11-19] MEDS: pantoprazole 40mg Tablet.DR PO SCH (08:45)
[2020-11-19] MEDS: cholecalciferol (vitamin D3) 1,000 unit (25mcg) tablet PO SCH (08:45)
[2020-11-19] MEDS: aspirin 81mg, enteric-coated 1 TAB TABLET.DR PO SCH (08:45)
[2020-11-19] MEDS: fenofibrate 145mg tablet PO SCH (08:45)
[2020-11-19] MEDS: atorvastatin 20mg tablet PO SCH (08:45)
[2020-11-19] MEDS: REMDESIVIR INJ 100 MG in normal saline 100ml IV soln 100 ML IV SCH (08:46)
[2020-11-19] MEDS: enoxaparin 40mg/0.4ml syringe SUBCUT SCH ×2 (08:47→20:52)
--- NOTE | 2020-11-19 08:50 | NUR ---
Initial: Pt admit DX COVID-19 PNA and acute respiratory failure hx DM A1C 8.6 per EMR. Pt eating well, avg intake 78% x 7 meals + 75% x 4 ONS, meeting needs. Pt currently requires BIPAP at 100%; DM ed deferred at this time though would benefit from DM ed once more stable prior to discharge. No N/V/D reported, LBM 11/17. No nutritional diagnosis at this time. Will continue to monitor. Rec: 1. Continue current CCHO diet as tolerated 2. Continue Glucerna TID 3. Bowel care per rx 4. Weekly wts Addendum: 11/19/20 at [address] Amended: Links added.
[2020-11-19] MEDS: insulin Lispro (HumaLOG) vial - multi-dose SQ SCH ×4 (09:38→21:56)
[2020-11-19] MEDS: vitamin B comp w/Vit. C tab 1 TAB TABLET PO SCH (09:49)
[2020-11-19] MEDS: dexamethasone 4mg/ml inj IV SCH ×2 (09:49→20:51)
[2020-11-19] MEDS: NUT.TX.GLUC.INTOLER,LAC-FR,SOY (GLUCERNA) 237 ML PO SCH ×3 (09:49→18:20)
--- NOTE | 2020-11-19 11:29 | NUR ---
Shannon requesting update from and ramsey gotten one in few days per her, message left via page for hospitalist Dr Lester.
[2020-11-19] MEDS: insulin glargine (Lantus) pen - multi-dose SQ SCH (21:55)
[2020-11-20] VITALS (22 sets, daily range): BP systolic 109–151; BP diastolic 52–91
[2020-11-20 06:19] LABS: D-DIMER 0.74 MG/L FEU (0-0.50)
[2020-11-20 06:34] LABS: C-REACTIVE PROTEIN 5.69 MG/DL (0.0-0.5)
[2020-11-20] MEDS: atorvastatin 20mg tablet PO SCH (08:08)
[2020-11-20] MEDS: cholecalciferol (vitamin D3) 1,000 unit (25mcg) tablet PO SCH (08:08)
[2020-11-20] MEDS: fenofibrate 145mg tablet PO SCH (08:08)
[2020-11-20] MEDS: enoxaparin 40mg/0.4ml syringe SUBCUT SCH ×2 (08:08→20:07)
[2020-11-20] MEDS: docusate sod 100mg capsule PO SCH ×2 (08:08→20:06)
[2020-11-20] MEDS: aspirin 81mg, enteric-coated 1 TAB TABLET.DR PO SCH (08:08)
[2020-11-20] MEDS: loperamide 2mg capsule PO PRN (08:10)
[2020-11-20] MEDS: dexamethasone 4mg/ml inj IV SCH (08:11)
[2020-11-20] MEDS: NUT.TX.GLUC.INTOLER,LAC-FR,SOY (GLUCERNA) 237 ML PO SCH ×3 (08:12→16:48)
[2020-11-20] MEDS: vitamin B comp w/Vit. C tab 1 TAB TABLET PO SCH (08:12)
[2020-11-20] MEDS: pantoprazole 40mg Tablet.DR PO SCH (08:12)
[2020-11-20] MEDS ORDERED: furosemide 20 MG/2 ML vial IV ONE (10:40)
[2020-11-20] MEDS: dexmedetomidin/NS 400mcg/100ml 100 ML IV SCH ×2 (10:40→20:08)
[2020-11-20] MEDS: methylPREDNISolone sod succ 125mg/2ml vial IV SCH (16:37)
[2020-11-20] MEDS: insulin Lispro (HumaLOG) vial - multi-dose SQ SCH ×2 (17:19→21:28)
[2020-11-20] MEDS: insulin glargine (Lantus) pen - multi-dose SQ SCH (21:31)
[2020-11-21] VITALS (24 sets, daily range): BP systolic 116–158; BP diastolic 59–86
[2020-11-21] MEDS: methylPREDNISolone sod succ 125mg/2ml vial IV SCH ×4 (00:18→23:56)
[2020-11-21] MEDS ORDERED: atropine 0.1mg/ml 10ml syringe ONE (01:38)
[2020-11-21 05:43] LABS: D-DIMER 0.82 MG/L FEU (0-0.50)
[2020-11-21 05:44] LABS: C-REACTIVE PROTEIN 8.16 MG/DL (0.0-0.5)
[2020-11-21] MEDS: NUT.TX.GLUC.INTOLER,LAC-FR,SOY (GLUCERNA) 237 ML PO SCH (08:00)
[2020-11-21] MEDS: enoxaparin 40mg/0.4ml syringe SUBCUT SCH ×2 (08:27→20:52)
[2020-11-21] MEDS: cholecalciferol (vitamin D3) 1,000 unit (25mcg) tablet PO SCH (08:28)
[2020-11-21] MEDS: fenofibrate 145mg tablet PO SCH (08:28)
[2020-11-21] MEDS: atorvastatin 20mg tablet PO SCH (08:28)
[2020-11-21] MEDS: aspirin 81mg, enteric-coated 1 TAB TABLET.DR PO SCH (08:28)
[2020-11-21] MEDS: docusate sod 100mg capsule PO SCH (08:28)
[2020-11-21] MEDS: pantoprazole 40mg Tablet.DR PO SCH (08:28)
[2020-11-21] MEDS: dexmedetomidin/NS 400mcg/100ml 100 ML IV SCH ×2 (08:29→17:58)
[2020-11-21] MEDS: vitamin B comp w/Vit. C tab 1 TAB TABLET PO SCH (08:33)
[2020-11-21 08:39] LABS: BASOPHILS % (AUTO) 0.2 % (0-1); EOSINOPHILS % (AUTO) 0 % (0-6); HEMATOCRIT 51.4 % (42.0-52.0); HEMOGLOBIN 17.2 g/dl (14.0-17.9); LYMPHOCYTES # (AUTO) 1.3 X10'3 (1.1-4.8); LYMPHOCYTES % (AUTO) 7.7 % (21-51); MEAN CORPUSCULAR HEMOGLOBIN 31.4 PG (27.0-31.0); MEAN CORPUSCULAR HGB CONC 33.4 g/dL (33.0-36.5); MEAN PLATELET VOLUME 7.4 FL (7.4-10.4); MONOCYTES # (AUTO) 0.6 X10'3 (0-0.9); MONOCYTES % (AUTO) 3.7 % (2-12); NEUTROPHILS # (AUTO) 14.7 X10'3 (1.8-7.7); NEUTROPHILS % (AUTO) 88.4 % (42-75); PLATELET COUNT 598 X10'3 (140-440); RED BLOOD COUNT 5.47 X10'6 (4.70-6.10); RED CELL DISTRIBUTION WIDTH 13.4 % (11.5-14.5); WHITE BLOOD COUNT 16.6 X10'3 (4.5-11.0)
[2020-11-21 08:52] LABS: ALANINE AMINOTRANSFERASE 132 U/L (12-78); ALBUMIN 2.4 G/DL (3.4-5.0); ALBUMIN/GLOBULIN RATIO 0.5 (1.1-1.5); ALKALINE PHOSPHATASE 75 IU/L (46-116); ANION GAP 9 (8-16); ASPARTATE AMINO TRANSFERASE 81 U/L (10-37); BILIRUBIN,TOTAL 0.6 MG/DL (0.1-1.0); BLOOD UREA NITROGEN 30 MG/DL (7-18); BUN/CREATININE RATIO 31.3 (5.4-32.0); CALCIUM 8.6 MG/DL (8.5-10.1); CHLORIDE 105 MMOL/L (99-107); CREATININE 0.96 MG/DL (0.60-1.10); GLUCOSE 212 MG/DL (70-104); POTASSIUM 4.7 MMOL/L (3.5-5.1); SODIUM 140 MMOL/L (135-145); TOTAL CARBON DIOXIDE 26.5 MMOL/L (24-32); TOTAL PROTEIN 7.2 G/DL (6.4-8.2); eGFR 83 ML/MIN
[2020-11-21] MEDS ORDERED: acetaminophen 325mg tablet CORPAK PRN (11:56)
[2020-11-21] MEDS ORDERED: dextrose ORAL solution 15 GM/59 ML bottle CORPAK PRN ×2 (11:58)
[2020-11-21] MEDS ORDERED: guaiFENesin/DM 10ml UD oral syrup CORPAK PRN (11:59)
[2020-11-21] MEDS ORDERED: ibuprofen tablet 400 MG TABLET OGT PRN (12:00)
[2020-11-21] MEDS ORDERED: diphenhydrAMINE 25 MG/10 ML UD oral solution CORPAK PRN (12:00)
[2020-11-21] MEDS ORDERED: magnesium hydroxide 30ml (MOM) UD suspension CORPAK PRN (12:01)
[2020-11-21] MEDS ORDERED: temazepam 15mg capsule CORPAK PRN (12:02)
[2020-11-21] MEDS ORDERED: ondansetron 4mg rapidly disintigrating tab CORPAK PRN (12:03)
[2020-11-21] MEDS ORDERED: LOPERAMIDE 2 mg/15 ml oral solution UD CORPAK PRN (12:05)
--- NOTE | 2020-11-21 12:16 | NUR ---
TF Consult: Pt NPO since yesterday r/t respiratory status per RN pending corpak placement w/ TF to start today per chronic care nurse at rounds. LBM 11/19 receiving routine colace. TF recs below given pt needs using initial 95.9kg wt since +1.6kg wt gain likely error w/ negative 10.5L fluid balance this admit. Will monitor for TF tolerance and adjustment needs. Rec: 1. Continuous TF per MD using Vital AF at 80ml/hr goal; to provide 1920ml volume, 2304 kcals, 1555ml free water, and 144g protein. 2. additional water flush 125ml Q4H 3. PALB Q /; daily wts 4. routine bowel care 5. advance to carb controlled diet once stable for PO diet as medically indicated 6. IF to advance to PO diet continue NG feeds until PO consistently ~65% avg meals. Addendum: 11/21/20 at [address] Amended: Links added.
[2020-11-21] MEDS: NUT.TX.GLUC.INTOLER,LAC-FR,SOY (GLUCERNA) 237 ML CORPAK SCH ×2 (13:00→18:00)
--- NOTE | 2020-11-21 18:20 | NUR ---
Patient in room ICU 2046. I have received report from MARLY Gonzalez and had the opportunity to ask questions and assume patient care. Patient on Bipap and proning, he is sleeping comfortably at this time. I will continue to monitor.
[2020-11-21] MEDS: docusate sodium 100mg/10ml UD cup CORPAK SCH (20:52)
[2020-11-21] MEDS: insulin glargine (Lantus) pen - multi-dose SQ SCH (21:21)
[2020-11-22] VITALS (24 sets, daily range): BP systolic 76–128; BP diastolic 40–88
[2020-11-22] MEDS: dexmedetomidin/NS 400mcg/100ml 100 ML IV SCH ×2 (02:39→08:24)
--- NOTE | 2020-11-22 02:51 | NUR ---
Pt has been on BiPAP all night and still is at this time. Pt appears comfortable, is in no respiratory distress, and is oxygenating well on 45% FIO2, all at this time.
[2020-11-22 03:13] LABS: BASOPHILS % (AUTO) 0.1 % (0-1); EOSINOPHILS % (AUTO) 0.1 % (0-6); HEMATOCRIT 48.4 % (42.0-52.0); HEMOGLOBIN 16.1 g/dl (14.0-17.9); LYMPHOCYTES # (AUTO) 0.6 X10'3 (1.1-4.8); LYMPHOCYTES % (AUTO) 3.9 % (21-51); MEAN CORPUSCULAR HEMOGLOBIN 31.2 PG (27.0-31.0); MEAN CORPUSCULAR HGB CONC 33.2 g/dL (33.0-36.5); MEAN CORPUSCULAR VOLUME 93.9 FL (78-98); MEAN PLATELET VOLUME 7.7 FL (7.4-10.4); MONOCYTES # (AUTO) 0.6 X10'3 (0-0.9); MONOCYTES % (AUTO) 4.3 % (2-12); NEUTROPHILS # (AUTO) 13.2 X10'3 (1.8-7.7); NEUTROPHILS % (AUTO) 91.6 % (42-75); PLATELET COUNT 537 X10'3 (140-440); RED BLOOD COUNT 5.15 X10'6 (4.70-6.10); RED CELL DISTRIBUTION WIDTH 13.7 % (11.5-14.5); WHITE BLOOD COUNT 14.4 X10'3 (4.5-11.0)
[2020-11-22 03:19] LABS: ALANINE AMINOTRANSFERASE 112 U/L (12-78); ALBUMIN 2.3 G/DL (3.4-5.0); ALBUMIN/GLOBULIN RATIO 0.5 (1.1-1.5); ALKALINE PHOSPHATASE 75 IU/L (46-116); ANION GAP 7 (8-16); ASPARTATE AMINO TRANSFERASE 34 U/L (10-37); BILIRUBIN,TOTAL 0.5 MG/DL (0.1-1.0); BLOOD UREA NITROGEN 41 MG/DL (7-18); BUN/CREATININE RATIO 42.7 (5.4-32.0); C-REACTIVE PROTEIN 3.03 MG/DL (0.0-0.5); CALCIUM 8.7 MG/DL (8.5-10.1); CHLORIDE 108 MMOL/L (99-107); CREATININE 0.96 MG/DL (0.60-1.10); GLUCOSE 211 MG/DL (70-104); LACTATE DEHYDROGENASE 488 U/L (85-227); SODIUM 142 MMOL/L (135-145); TOTAL CARBON DIOXIDE 26.9 MMOL/L (24-32); TOTAL PROTEIN 6.8 G/DL (6.4-8.2); eGFR 83 ML/MIN
--- NOTE | 2020-11-22 06:10 | NUR ---
Problems reprioritized. Patient report given, questions answered & plan of care reviewed with MARLY Gonzalez.
[2020-11-22] MEDS: NUT.TX.GLUC.INTOLER,LAC-FR,SOY (GLUCERNA) 237 ML CORPAK SCH ×3 (08:00→18:00)
[2020-11-22] MEDS: methylPREDNISolone sod succ 125mg/2ml vial IV SCH ×2 (08:25→17:23)
[2020-11-22] MEDS: docusate sodium 100mg/10ml UD cup CORPAK SCH ×2 (08:25→19:02)
[2020-11-22] MEDS: fenofibrate 145mg tablet CORPAK SCH (08:26)
[2020-11-22] MEDS: atorvastatin 20mg tablet CORPAK SCH (08:26)
[2020-11-22] MEDS: vitamin B comp w/Vit. C tab 1 TAB TABLET CORPAK SCH (08:26)
[2020-11-22] MEDS: cholecalciferol (vitamin D3) 1,000 unit (25mcg) tablet CORPAK SCH (08:26)
[2020-11-22] MEDS ORDERED: aspirin 81mg tab.chew CORPAK SCH (08:30)
[2020-11-22] MEDS: enoxaparin 40mg/0.4ml syringe SUBCUT SCH (08:38)
[2020-11-22] MEDS ORDERED: midazolam 1 mg/ML 2ml injection ONE ×2 (09:16→14:51)
[2020-11-22] MEDS ORDERED: propofol 1000mg/100ml bottle 100 ML IV ONE ×3 (09:17→14:50)
[2020-11-22] MEDS ORDERED: fentaNYL/PF 50MCG/1 ML 2ML syringe ONE (09:38)
--- NOTE | 2020-11-22 09:55 | NUR ---
MARLY TC: Pt currently being intubated by driver retraining instructor; prior RD TF recs remain appropriate given COVID DX. Will monitor for TF tolerance and adjustment needs on vent. Rec: 1. Continuous TF per MD using Vital AF at 80ml/hr goal; to provide 1920ml volume, 2304 kcals, 1555ml free water, and 144g protein. 2. additional water flush 125ml Q4H 3. PALB Q /; daily wts 4. routine bowel care 5. IF to advance to PO diet upon extubation; continue NG feeds until PO consistently ~65% avg meals. Addendum: 11/22/20 at [address] Amended: Links added.
[2020-11-22] MEDS ORDERED: gelatin sponge, absorbable (Gelfoam 12-7MM) sponge TP ONE ×2 (11:10→12:00)
[2020-11-22 11:16] LABS: ABG BASE EXCESS -1.4 mmol/L (-2.0-2.0); ABG HCO3 23.5 mmol/L (22.0-26.0); ABG OXYGEN SATURATION 82.1 % (94-97); ABG PCO2 (T) 40.4 mmHg (35.0-48.0); ABG PO2 (T) 47.5 mmHg (75.0-100.0); FCOHb 0.3 % (0.0-3.9); FMetHb 0.2 % (0.0-1.5); FO2Hb 81.7 % (94-97); PATIENT TEMPERATURE 36.9; PEEP 8 cm H2O; RESPIRATORY RATE 16 b/min; TIDAL VOLUME 497 mL; TOTAL HEMOGLOBIN 16.7 G/dl (14.0-18.0)
[2020-11-22] MEDS ORDERED: NORepinephrine 8mg/ 250ml NS 250 ML IV ONE (11:55)
[2020-11-22] MEDS ORDERED: DESMOPRESSIN IV ONE (13:10)
[2020-11-22] MEDS ORDERED: NORMAL SALINE IV ONE (13:10)
[2020-11-22] MEDS ORDERED: protamine sulf. 10mg/ml inj. IV ONE (13:10)
[2020-11-22 14:27] LABS: MEAN PLATELET VOLUME 8.5 FL (7.4-10.4)
[2020-11-22 14:28] LABS: HEMATOCRIT 44.1 % (42.0-52.0); HEMOGLOBIN 15.1 g/dl (14.0-17.9); MEAN CORPUSCULAR HEMOGLOBIN 32.5 PG (27.0-31.0); MEAN CORPUSCULAR HGB CONC 34.2 g/dL (33.0-36.5); PLATELET COUNT 690 X10'3 (140-440); RED BLOOD COUNT 4.64 X10'6 (4.70-6.10); RED CELL DISTRIBUTION WIDTH 13.1 % (11.5-14.5); WHITE BLOOD COUNT 23.6 X10'3 (4.5-11.0)
--- NOTE | 2020-11-22 14:38 | NUR ---
Pt with crepitus noted on right and left sides of chest. Dr. Antunez and Dr. Ayala notified. CXR and KUB obtained. Pt intubated. Chest tubes x2 right side and left side inserted to -20cm suction. Right femoral dang and Right femoral quad lumen catheters inserted by Dr. Ayala. Dang and CVP zeroed and calibrated. Pt started on propofol and levophed drips. Left chest tube bleeding. Surgiform applied, bleeding continued. Site reinforced. Dr. Ayala sutured chest tube a second time. Dressing reinforced. ventilator settings FIO2 100% Peep 12 TV 500 Rate 15. patient sith O2 sats 79-83%. Caceres catheter inserted. OGT inserted. Repeat CXR and KUB completed. Pt type and screened for 4uPRBCs. H&H q 4 hours ordered. DIC panel obtained. Fibrinogen panel ordered. Pt started on TF Vital AF at 20cc. PICC line clotted. Removed. , parents and children of patient in to see patient.
[2020-11-22 14:44] LABS: D-DIMER 1.17 MG/L FEU (0-0.50); PARTIAL THROMBOPLASTIN TIME 26 SECONDS (22-32)
[2020-11-22] MEDS ORDERED: midazolam 1 mg/ML 2ml injection IV ONE (15:05)
[2020-11-22 15:06] LABS: PLATELET COUNT 690 X10'3 (140-440)
[2020-11-22] MEDS: vancomycin/NS 1 GM ADD-VANTAGE 250 ML IV SCH ×2 (17:22→22:02)
[2020-11-22] MEDS: cefepime 2g/NS 100ml ADVANTAGE 100 ML IV SCH ×2 (17:23→20:48)
[2020-11-22] MEDS: lansoprazole 15mg solutab CORPAK SCH (17:24)
--- NOTE | 2020-11-22 18:30 | NUR ---
Patient in room ICU 2046. I have received report from Lisa LUKE and had the opportunity to ask questions and assume patient care.
[2020-11-22 18:51] LABS: HEMATOCRIT 41.7 % (42.0-52.0)
[2020-11-22 18:52] LABS: HEMOGLOBIN 14.2 g/dl (14.0-17.9); MEAN CORPUSCULAR HEMOGLOBIN 31.6 PG (27.0-31.0); MEAN CORPUSCULAR VOLUME 92.9 FL (78-98); MEAN PLATELET VOLUME 7.9 FL (7.4-10.4); PLATELET COUNT 728 X10'3 (140-440); RED BLOOD COUNT 4.49 X10'6 (4.70-6.10); RED CELL DISTRIBUTION WIDTH 13.4 % (11.5-14.5); WHITE BLOOD COUNT 23.9 X10'3 (4.5-11.0)
[2020-11-22] MEDS: FENTANYL-0.9 % NACL/PF 100 ML IV PRN (19:45)
[2020-11-22] MEDS: propofol 1000mg/100ml bottle 100 ML IV SCH ×2 (19:45→22:27)
[2020-11-22] MEDS: insulin regular, human U-100 3ml vial - multi-dose SQ SCH (20:41)
[2020-11-22] MEDS: insulin glargine (Lantus) pen - multi-dose SQ SCH (20:42)
[2020-11-22] MEDS: acetaminophen 325mg tablet CORPAK PRN (22:17)
[2020-11-22 23:31] LABS: ABG BASE EXCESS -5.3 mmol/L (-2.0-2.0); ABG HCO3 19.4 mmol/L (22.0-26.0); ABG PCO2 (T) 37.3 mmHg (35.0-48.0); ABG PO2 (T) 76.2 mmHg (75.0-100.0); FCOHb 0.3 % (0.0-3.9); FMetHb 0.4 % (0.0-1.5); FO2Hb 92.3 % (94-97); PATIENT TEMPERATURE 38.2; PEEP 12 cm H2O; RESPIRATORY RATE 16 b/min; TIDAL VOLUME 500 mL; TOTAL HEMOGLOBIN 14.5 G/dl (14.0-18.0)
[2020-11-22 23:38] LABS: HEMOGLOBIN 13.8 g/dl (14.0-17.9); MEAN CORPUSCULAR VOLUME 93.7 FL (78-98); MEAN PLATELET VOLUME 7.7 FL (7.4-10.4)
[2020-11-22 23:39] LABS: HEMATOCRIT 41.1 % (42.0-52.0); MEAN CORPUSCULAR HEMOGLOBIN 31.4 PG (27.0-31.0); MEAN CORPUSCULAR HGB CONC 33.5 g/dL (33.0-36.5); PLATELET COUNT 654 X10'3 (140-440); RED BLOOD COUNT 4.39 X10'6 (4.70-6.10); RED CELL DISTRIBUTION WIDTH 13.5 % (11.5-14.5)
[2020-11-23] VITALS (24 sets, daily range): BP systolic 94–133; BP diastolic 48–67
[2020-11-23] MEDS: methylPREDNISolone sod succ 125mg/2ml vial IV SCH ×3 (00:34→16:00)
[2020-11-23] MEDS: propofol 1000mg/100ml bottle 100 ML IV SCH ×5 (01:12→11:25)
[2020-11-23] MEDS: dexmedetomidin/NS 400mcg/100ml 100 ML IV SCH ×3 (01:12→22:08)
[2020-11-23] MEDS: insulin regular, human U-100 3ml vial - multi-dose SQ SCH ×5 (02:29→16:27)
[2020-11-23 02:48] LABS: EOSINOPHILS % (AUTO) 0 % (0-6); HEMOGLOBIN 13.6 g/dl (14.0-17.9); LYMPHOCYTES # (AUTO) 0.5 X10'3 (1.1-4.8); MEAN PLATELET VOLUME 7.7 FL (7.4-10.4)
[2020-11-23 02:49] LABS: CLARITY,URINE SLIGHTLY CLOUDY (Clear); COLOR,URINE YELLOW (Yellow); GLUCOSE, URINE 500 mg/dl (Neg); KETONES,URINE NEGATIVE (Neg); LEUKOCYTE ESTERASE ,URINE NEGATIVE (Neg); NITRITES, URINE NEGATIVE (Neg); OCCULT BLOOD,URINE LARGE (Neg); PH,URINE 5.5 (4.8-8.0); PROTEIN,URINE TRACE mg/dl (Neg); UROBILINOGEN,URINE 0.2 E.U/dL (0.2-1.0)
[2020-11-23 02:52] LABS: BASOPHILS % (AUTO) 0 % (0-1); HEMATOCRIT 40.2 % (42.0-52.0); LYMPHOCYTES % (AUTO) 1.8 % (21-51); MEAN CORPUSCULAR HEMOGLOBIN 31.3 PG (27.0-31.0); MEAN CORPUSCULAR HGB CONC 33.8 g/dL (33.0-36.5); MEAN CORPUSCULAR VOLUME 92.7 FL (78-98); MONOCYTES # (AUTO) 1.9 X10'3 (0-0.9); NEUTROPHILS # (AUTO) 24.3 X10'3 (1.8-7.7); NEUTROPHILS % (AUTO) 91.2 % (42-75); PLATELET COUNT 643 X10'3 (140-440); RED BLOOD COUNT 4.34 X10'6 (4.70-6.10); RED CELL DISTRIBUTION WIDTH 13.7 % (11.5-14.5)
[2020-11-23 02:56] LABS: WHITE BLOOD COUNT 26.7 X10'3 (4.5-11.0)
[2020-11-23 03:01] LABS: ALANINE AMINOTRANSFERASE 84 U/L (12-78); ALBUMIN/GLOBULIN RATIO 0.5 (1.1-1.5); ALKALINE PHOSPHATASE 59 IU/L (46-116); ANION GAP 14 (8-16); ASPARTATE AMINO TRANSFERASE 28 U/L (10-37); BILIRUBIN,TOTAL 0.5 MG/DL (0.1-1.0); BLOOD UREA NITROGEN 51 MG/DL (7-18); BUN/CREATININE RATIO 45.5 (5.4-32.0); C-REACTIVE PROTEIN 4.37 MG/DL (0.0-0.5); CALCIUM 7.6 MG/DL (8.5-10.1); CHLORIDE 104 MMOL/L (99-107); CREATININE 1.12 MG/DL (0.60-1.10); GLUCOSE 376 MG/DL (70-104); LACTATE DEHYDROGENASE 454 U/L (85-227); MAGNESIUM 2.5 MG/DL (1.5-2.4); PHOSPHORUS 4.4 MG/DL (2.3-4.5); POTASSIUM 5.3 MMOL/L (3.5-5.1); PREALBUMIN 15.2 MG/DL (19-36); SODIUM 138 MMOL/L (135-145); TOTAL CARBON DIOXIDE 20.5 MMOL/L (24-32); TRIGLYCERIDES 506 MG/DL (20-135); eGFR 69 ML/MIN
[2020-11-23 03:04] LABS: D-DIMER 0.78 MG/L FEU (0-0.50); PARTIAL THROMBOPLASTIN TIME 25 SECONDS (22-32)
[2020-11-23 03:29] LABS: ABG BASE EXCESS -5.1 mmol/L (-2.0-2.0); ABG HCO3 19.4 mmol/L (22.0-26.0); ABG OXYGEN SATURATION 94.4 % (94-97); ABG PCO2 (T) 36.4 mmHg (35.0-48.0); ABG PO2 (T) 82.5 mmHg (75.0-100.0); FCOHb 0.3 % (0.0-3.9); FMetHb 0.2 % (0.0-1.5); FO2Hb 93.9 % (94-97); PEEP 12 cm H2O; RESPIRATORY RATE 16 b/min; TIDAL VOLUME 500 mL; TOTAL HEMOGLOBIN 14.5 G/dl (14.0-18.0)
[2020-11-23 03:35] LABS: UA COLLECTION TYPE FOLEY CATH; WBC,URINE NONE SEEN /HPF (0-4)
[2020-11-23 03:36] LABS: BACTERIA,URINE NONE SEEN /HPF (Neg); MUCUS STRANDS NONE SEEN /LPF (Neg); RBC,URINE 20-50 /HPF (0-2); SQUAMOUS EPITHELIAL CELL,UR NONE SEEN /LPF (FEW)
[2020-11-23] MEDS: VANCOmycin 1250MG/NS 250ml Bag 250 ML IV SCH ×2 (03:58→16:01)
[2020-11-23] MEDS: FENTANYL-0.9 % NACL/PF 100 ML IV PRN ×2 (04:01→16:01)
[2020-11-23 04:19] LABS: BANDS% (MANUAL) 1 % (0-10); LYMPHOCYTES % (MANUAL) 4 % (21-51); MONOCYTES % (MANUAL) 2 % (2-12); NEUTROPHILS % (MANUAL) 93 % (42-75); TOTAL CELLS COUNTED 100
[2020-11-23 04:20] LABS: PLATELET ESTIMATE INCREASED
[2020-11-23] MEDS: NORepinephrine 8mg/ 250ml NS 250 ML IV SCH ×2 (05:24→19:21)
[2020-11-23] MEDS ORDERED: albumin (Human) 5% 250ml 250 ML IV ONE ×2 (05:30)
[2020-11-23] MEDS: NUT.TX.GLUC.INTOLER,LAC-FR,SOY (GLUCERNA) 237 ML CORPAK SCH ×3 (08:00→16:59)
[2020-11-23] MEDS: lansoprazole 15mg solutab CORPAK SCH (08:14)
[2020-11-23] MEDS: cholecalciferol (vitamin D3) 1,000 unit (25mcg) tablet CORPAK SCH (08:14)
[2020-11-23] MEDS: vitamin B comp w/Vit. C tab 1 TAB TABLET CORPAK SCH (08:14)
[2020-11-23] MEDS: fenofibrate 145mg tablet CORPAK SCH (08:14)
[2020-11-23] MEDS: docusate sodium 100mg/10ml UD cup CORPAK SCH ×2 (08:14→20:00)
[2020-11-23] MEDS: atorvastatin 20mg tablet CORPAK SCH (08:14)
[2020-11-23] MEDS: cefepime 2g/NS 100ml ADVANTAGE 100 ML IV SCH ×2 (08:24→20:50)
[2020-11-23] MEDS ORDERED: guaiFENesin/codeine phos 10ml UD oral syrup PO PRN (11:45)
[2020-11-23] MEDS: midazolam 100mg in NS 100 ML INFUSION IV PRN ×2 (12:14→16:59)
[2020-11-23] MEDS: sodium bicarbonate (8.4%) inj. 50 MEQ in sodium chloride 0.45% 1,000 ML IV SCH (12:26)
[2020-11-23] MEDS: Insulin Reg/NS 100units/100mL 100 ML IV SCH ×2 (12:45→21:14)
[2020-11-23] MEDS: mineral oil/petrolatum ophthal oint EACHEYE SCH (20:00)
[2020-11-23] MEDS: lactobacillus rhamnosus 10,000 MMU CELLS/CAPSULE CORPAK SCH (20:49)
[2020-11-23] MEDS: insulin glargine (Lantus) pen - multi-dose SQ SCH (21:14)
[2020-11-24] VITALS (24 sets, daily range): BP systolic 96–168; BP diastolic 51–91
[2020-11-24] MEDS: midazolam 100mg in NS 100 ML INFUSION IV PRN ×4 (00:16→23:09)
[2020-11-24] MEDS: methylPREDNISolone sod succ 125mg/2ml vial IV SCH ×2 (00:16→08:03)
[2020-11-24] MEDS: sodium bicarbonate (8.4%) inj. 50 MEQ in sodium chloride 0.45% 1,000 ML IV SCH ×2 (00:16→08:04)
[2020-11-24] MEDS: mineral oil/petrolatum ophthal oint EACHEYE SCH ×4 (02:52→20:50)
[2020-11-24] MEDS: FENTANYL-0.9 % NACL/PF 100 ML IV PRN ×2 (03:10→17:02)
[2020-11-24 03:14] LABS: ABG HCO3 27.5 mmol/L (22.0-26.0); ABG OXYGEN SATURATION 82.5 % (94-97); ABG PCO2 (T) 41.8 mmHg (35.0-48.0); ABG PO2 (T) 44.5 mmHg (75.0-100.0); FCOHb 0.3 % (0.0-3.9); FMetHb 0.2 % (0.0-1.5); FO2Hb 82.1 % (94-97); PATIENT TEMPERATURE 36.9; PEEP 12 cm H2O; RESPIRATORY RATE 20 b/min; TIDAL VOLUME 425 mL
[2020-11-24] MEDS: Insulin Reg/NS 100units/100mL 100 ML IV SCH ×5 (03:14→21:49)
[2020-11-24 03:25] LABS: BASOPHILS % (AUTO) 0.2 % (0-1); EOSINOPHILS % (AUTO) 0 % (0-6); HEMATOCRIT 28.8 % (42.0-52.0); HEMOGLOBIN 9.9 g/dl (14.0-17.9); LYMPHOCYTES # (AUTO) 0.4 X10'3 (1.1-4.8); MEAN CORPUSCULAR HEMOGLOBIN 31.3 PG (27.0-31.0); MEAN CORPUSCULAR HGB CONC 34.3 g/dL (33.0-36.5); MEAN CORPUSCULAR VOLUME 91.2 FL (78-98); MEAN PLATELET VOLUME 7.2 FL (7.4-10.4); MONOCYTES # (AUTO) 1.1 X10'3 (0-0.9); MONOCYTES % (AUTO) 6.3 % (2-12); NEUTROPHILS # (AUTO) 16.2 X10'3 (1.8-7.7); NEUTROPHILS % (AUTO) 91.5 % (42-75); PLATELET COUNT 304 X10'3 (140-440); RED BLOOD COUNT 3.16 X10'6 (4.70-6.10); WHITE BLOOD COUNT 17.7 X10'3 (4.5-11.0)
[2020-11-24] MEDS ORDERED: VANCOMYCIN LEVEL IV ONE (03:30)
[2020-11-24 03:39] LABS: D-DIMER 0.54 MG/L FEU (0-0.50); PARTIAL THROMBOPLASTIN TIME 28 SECONDS (22-32)
[2020-11-24 03:40] LABS: ALANINE AMINOTRANSFERASE 46 U/L (12-78); ALBUMIN 1.9 G/DL (3.4-5.0); ALBUMIN/GLOBULIN RATIO 0.6 (1.1-1.5); ALKALINE PHOSPHATASE 54 IU/L (46-116); ANION GAP 5 (8-16); ASPARTATE AMINO TRANSFERASE 18 U/L (10-37); BILIRUBIN,TOTAL 0.3 MG/DL (0.1-1.0); BLOOD UREA NITROGEN 27 MG/DL (7-18); BUN/CREATININE RATIO 52.9 (5.4-32.0); CALCIUM 6.5 MG/DL (8.5-10.1); CHLORIDE 113 MMOL/L (99-107); CREATININE 0.51 MG/DL (0.60-1.10); GLUCOSE 170 MG/DL (70-104); LACTATE DEHYDROGENASE 317 U/L (85-227); MAGNESIUM 2.5 MG/DL (1.5-2.4); POTASSIUM 4.2 MMOL/L (3.5-5.1); SODIUM 146 MMOL/L (135-145); TOTAL PROTEIN 4.9 G/DL (6.4-8.2); VANCOMYCIN,TROUGH 7.4 UG/ML (6.0-14.0); eGFR > 90 ML/MIN
[2020-11-24 04:05] LABS: BANDS% (MANUAL) 1 % (0-10); LYMPHOCYTES % (MANUAL) 3 % (21-51); MONOCYTES % (MANUAL) 3 % (2-12); NEUTROPHILS % (MANUAL) 93 % (42-75); PLATELET ESTIMATE NORMAL; TOTAL CELLS COUNTED 100
[2020-11-24] MEDS: VANCOmycin 1250MG/NS 250ml Bag 250 ML IV SCH ×3 (04:19→20:49)
[2020-11-24] MEDS: NUT.TX.GLUC.INTOLER,LAC-FR,SOY (GLUCERNA) 237 ML CORPAK SCH ×3 (08:00→18:00)
[2020-11-24] MEDS: enoxaparin 40mg/0.4ml syringe SUBCUT SCH (08:00)
[2020-11-24] MEDS: vitamin B comp w/Vit. C tab 1 TAB TABLET CORPAK SCH (08:02)
[2020-11-24] MEDS: lactobacillus rhamnosus 10,000 MMU CELLS/CAPSULE CORPAK SCH ×2 (08:02→20:45)
[2020-11-24] MEDS: cholecalciferol (vitamin D3) 1,000 unit (25mcg) tablet CORPAK SCH (08:03)
[2020-11-24] MEDS: lansoprazole 15mg solutab CORPAK SCH (08:03)
[2020-11-24] MEDS: fenofibrate 145mg tablet CORPAK SCH (08:03)
[2020-11-24] MEDS: docusate sodium 100mg/10ml UD cup CORPAK SCH ×2 (08:03→19:55)
[2020-11-24] MEDS: atorvastatin 20mg tablet CORPAK SCH (08:03)
[2020-11-24] MEDS: cefepime 2g/NS 100ml ADVANTAGE 100 ML IV SCH ×2 (08:03→20:45)
[2020-11-24] MEDS: dexmedetomidin/NS 400mcg/100ml 100 ML IV SCH ×2 (08:34→18:16)
--- NOTE | 2020-11-24 09:34 | NUR ---
shelbi washburn per Dr. Ayala. H&H dropped
[2020-11-24] MEDS: NORepinephrine 8mg/ 250ml NS 250 ML IV SCH (10:12)
--- NOTE | 2020-11-24 11:24 | NUR ---
F/u 11/24: Pt remains intubated tolerating TF at goal GRV WNL. LBM 8 receiving routine colace w/ senna and miralax to start today per creative developer. Serum Na 146 though receiving sodium bicarb/NS at 100ml/hr which is to stop today per creative developer at rounds. First PALB 15.2 yesterday per EMR. Will monitor for TF tolerance and adjustment needs on vent. Rec: 1. Continuous TF per MD using Vital AF at 80ml/hr goal; to provide 1920ml volume, 2304 kcals, 1555ml free water, and 144g protein. 2. additional water flush 125ml Q4H 3. PALB Q /; daily wts 4. routine bowel care 5. IF to advance to PO diet upon extubation; continue NG feeds until PO consistently ~65% avg meals Addendum: 11/24/20 at [address] Amended: Links added.
[2020-11-24] MEDS: polyethylene glycol 3350 17gm powd pack PO SCH (12:00)
[2020-11-24 13:50] LABS: HEMATOCRIT 27.3 % (42.0-52.0); HEMOGLOBIN 9.4 g/dl (14.0-17.9); MEAN CORPUSCULAR HEMOGLOBIN 31.4 PG (27.0-31.0); MEAN CORPUSCULAR HGB CONC 34.3 g/dL (33.0-36.5); MEAN CORPUSCULAR VOLUME 91.4 FL (78-98); MEAN PLATELET VOLUME 7.6 FL (7.4-10.4); PLATELET COUNT 273 X10'3 (140-440); RED BLOOD COUNT 2.99 X10'6 (4.70-6.10); WHITE BLOOD COUNT 14.6 X10'3 (4.5-11.0)
[2020-11-24] MEDS: methylPREDNISolone sod succ/PF 40mg inj. IV SCH (16:08)
[2020-11-24 19:40] LABS: ABG BASE EXCESS 2.7 mmol/L (-2.0-2.0); ABG HCO3 26.9 mmol/L (22.0-26.0); ABG OXYGEN SATURATION 85.5 % (94-97); ABG PCO2 (T) 39.7 mmHg (35.0-48.0); ABG PO2 (T) 47.3 mmHg (75.0-100.0); FCOHb 0.2 % (0.0-3.9); FMetHb 0.2 % (0.0-1.5); FO2Hb 85.2 % (94-97); PEEP 12 cm H2O; RESPIRATORY RATE 20 b/min; TIDAL VOLUME 425 mL; TOTAL HEMOGLOBIN 9.9 G/dl (14.0-18.0)
[2020-11-24 19:54] LABS: BASOPHILS # (AUTO) 0.1 X10'3 (0-0.2); BASOPHILS % (AUTO) 0.7 % (0-1); EOSINOPHILS % (AUTO) 0 % (0-6); HEMATOCRIT 28.3 % (42.0-52.0); HEMOGLOBIN 9.5 g/dl (14.0-17.9); LYMPHOCYTES # (AUTO) 0.2 X10'3 (1.1-4.8); LYMPHOCYTES % (AUTO) 1.7 % (21-51); MEAN CORPUSCULAR HEMOGLOBIN 31.3 PG (27.0-31.0); MEAN CORPUSCULAR HGB CONC 33.6 g/dL (33.0-36.5); MEAN CORPUSCULAR VOLUME 93.2 FL (78-98); MEAN PLATELET VOLUME 7.6 FL (7.4-10.4); MONOCYTES # (AUTO) 0.5 X10'3 (0-0.9); MONOCYTES % (AUTO) 3.6 % (2-12); NEUTROPHILS # (AUTO) 13.7 X10'3 (1.8-7.7); PLATELET COUNT 275 X10'3 (140-440); RED BLOOD COUNT 3.04 X10'6 (4.70-6.10); RED CELL DISTRIBUTION WIDTH 13.5 % (11.5-14.5); WHITE BLOOD COUNT 14.5 X10'3 (4.5-11.0)
[2020-11-24] MEDS: sennosides 8.6mg tablet PO SCH (19:55)
[2020-11-24 20:07] LABS: ALANINE AMINOTRANSFERASE 35 U/L (12-78); ALBUMIN 1.5 G/DL (3.4-5.0); ALBUMIN/GLOBULIN RATIO 0.5 (1.1-1.5); ALKALINE PHOSPHATASE 41 IU/L (46-116); ANION GAP 2 (8-16); ASPARTATE AMINO TRANSFERASE 19 U/L (10-37); BILIRUBIN,TOTAL 0.2 MG/DL (0.1-1.0); BLOOD UREA NITROGEN 26 MG/DL (7-18); CALCIUM 6.3 MG/DL (8.5-10.1); CHLORIDE 110 MMOL/L (99-107); CREATININE 0.51 MG/DL (0.60-1.10); GLUCOSE 145 MG/DL (70-104); MAGNESIUM 2.4 MG/DL (1.5-2.4); PHOSPHORUS 1.4 MG/DL (2.3-4.5); POTASSIUM 3.7 MMOL/L (3.5-5.1); SODIUM 140 MMOL/L (135-145); TOTAL CARBON DIOXIDE 27.9 MMOL/L (24-32); TOTAL PROTEIN 4.7 G/DL (6.4-8.2); eGFR > 90 ML/MIN
[2020-11-24] MEDS ORDERED: magnesium 4gm in 100ml NS 100 ML IV PRN (20:25)
[2020-11-24] MEDS ORDERED: magnesium 2GM in 50ml NS 50 ML IV PRN (20:25)
[2020-11-24] MEDS ORDERED: potassium Cl 20 mEq SR tablet PO PRN (20:25)
[2020-11-24] MEDS ORDERED: sodium phosphate inj. 30 MMOL in dextrose 5%-water 250 ML IV PRN (20:25)
[2020-11-24] MEDS ORDERED: potassium CL 10mEq/100ml bag 100 ML IV PRN (20:25)
[2020-11-24] MEDS ORDERED: sodium phosphate inj. 15 MMOL in dextrose 5%-water 250 ML IV PRN (20:25)
[2020-11-24] MEDS: insulin glargine (Lantus) pen - multi-dose SQ SCH (21:47)
[2020-11-24] MEDS: potassium Cl 20mEq/100mL bag 100 ML IV PRN ×2 (21:57→23:09)
[2020-11-25] VITALS (24 sets, daily range): BP systolic 95–152; BP diastolic 40–99
[2020-11-25] MEDS: Neutra Phos packet PO PRN
[2020-11-25] MEDS: NORepinephrine 8mg/ 250ml NS 250 ML IV SCH ×2 (01:03→15:30)
[2020-11-25] MEDS: mineral oil/petrolatum ophthal oint EACHEYE SCH ×4 (02:11→21:27)
[2020-11-25] MEDS ORDERED: VANCOMYCIN LEVEL IV ONE (03:30)
[2020-11-25] MEDS: Insulin Reg/NS 100units/100mL 100 ML IV SCH ×5 (03:31→23:39)
[2020-11-25 03:35] LABS: ABG HCO3 25.9 mmol/L (22.0-26.0); ABG PCO2 (T) 36.9 mmHg (35.0-48.0); ABG PO2 (T) 53.8 mmHg (75.0-100.0); FCOHb 0.3 % (0.0-3.9); FMetHb 0.3 % (0.0-1.5); FO2Hb 89.5 % (94-97); PATIENT TEMPERATURE 36.5; RESPIRATORY RATE 20 b/min; TIDAL VOLUME 425 mL; TOTAL HEMOGLOBIN 10.9 G/dl (14.0-18.0)
[2020-11-25 03:56] LABS: D-DIMER 1.14 MG/L FEU (0-0.50); PARTIAL THROMBOPLASTIN TIME 24 SECONDS (22-32)
[2020-11-25 03:58] LABS: ALANINE AMINOTRANSFERASE 36 U/L (12-78); ALBUMIN 1.7 G/DL (3.4-5.0); ALBUMIN/GLOBULIN RATIO 0.6 (1.1-1.5); ALKALINE PHOSPHATASE 52 IU/L (46-116); ANION GAP 3 (8-16); ASPARTATE AMINO TRANSFERASE 18 U/L (10-37); BILIRUBIN,TOTAL 0.3 MG/DL (0.1-1.0); BLOOD UREA NITROGEN 26 MG/DL (7-18); BUN/CREATININE RATIO 47.3 (5.4-32.0); C-REACTIVE PROTEIN 2.27 MG/DL (0.0-0.5); CALCIUM 6.2 MG/DL (8.5-10.1); CHLORIDE 113 MMOL/L (99-107); CREATININE 0.55 MG/DL (0.60-1.10); GLUCOSE 151 MG/DL (70-104); LACTATE DEHYDROGENASE 355 U/L (85-227); MAGNESIUM 2.4 MG/DL (1.5-2.4); PHOSPHORUS 1.6 MG/DL (2.3-4.5); POTASSIUM 4.5 MMOL/L (3.5-5.1); SODIUM 145 MMOL/L (135-145); TOTAL CARBON DIOXIDE 28.6 MMOL/L (24-32); TOTAL PROTEIN 4.7 G/DL (6.4-8.2); VANCOMYCIN,TROUGH 15.6 UG/ML (6.0-14.0); eGFR > 90 ML/MIN
[2020-11-25 04:00] LABS: BASOPHILS % (AUTO) 0.1 % (0-1); EOSINOPHILS % (AUTO) 0 % (0-6); HEMATOCRIT 28.2 % (42.0-52.0); HEMOGLOBIN 9.6 g/dl (14.0-17.9); LYMPHOCYTES # (AUTO) 0.4 X10'3 (1.1-4.8); LYMPHOCYTES % (AUTO) 2.7 % (21-51); MEAN CORPUSCULAR HEMOGLOBIN 31.7 PG (27.0-31.0); MEAN CORPUSCULAR VOLUME 93.2 FL (78-98); MEAN PLATELET VOLUME 7.8 FL (7.4-10.4); MONOCYTES # (AUTO) 0.7 X10'3 (0-0.9); MONOCYTES % (AUTO) 4.9 % (2-12); NEUTROPHILS # (AUTO) 13.7 X10'3 (1.8-7.7); NEUTROPHILS % (AUTO) 92.3 % (42-75); PLATELET COUNT 264 X10'3 (140-440); RED BLOOD COUNT 3.03 X10'6 (4.70-6.10); RED CELL DISTRIBUTION WIDTH 13.5 % (11.5-14.5); WHITE BLOOD COUNT 14.9 X10'3 (4.5-11.0)
[2020-11-25] MEDS: VANCOmycin 1250MG/NS 250ml Bag 250 ML IV SCH ×3 (04:08→21:27)
[2020-11-25 04:12] LABS: PLATELET ESTIMATE NORMAL
[2020-11-25 04:22] LABS: TOTAL CELLS COUNTED 100
[2020-11-25] MEDS: dexmedetomidin/NS 400mcg/100ml 100 ML IV SCH ×2 (05:02→15:30)
[2020-11-25] MEDS: FENTANYL-0.9 % NACL/PF 100 ML IV PRN ×3 (05:03→21:26)
[2020-11-25] MEDS: midazolam 100mg in NS 100 ML INFUSION IV PRN ×4 (05:03→21:26)
--- NOTE | 2020-11-25 06:26 | NUR ---
RN Note -Shift Summary Vent settings adjusted by RT per protocol Called Dr. Ramachandran last night regarding PVCs. Orders received. Spoke with Pt's daughter and father separately by phone last night. Spoke with Dr. Willett on tele rounds this morning. Orders received. Morning chest xray showed ET tube was high. RT pushed tube back 2 cm. ET tube now at 26 cm at teeth.
[2020-11-25] MEDS: cefepime 2g/NS 100ml ADVANTAGE 100 ML IV SCH ×2 (07:45→21:28)
[2020-11-25] MEDS: docusate sodium 100mg/10ml UD cup CORPAK SCH ×2 (07:45→21:25)
[2020-11-25] MEDS: methylPREDNISolone sod succ/PF 40mg inj. IV SCH ×3 (07:46→15:50)
[2020-11-25] MEDS: cholecalciferol (vitamin D3) 1,000 unit (25mcg) tablet CORPAK SCH (07:46)
[2020-11-25] MEDS: pantoprazole 40 MG vial IV SCH (07:46)
[2020-11-25] MEDS: enoxaparin 40mg/0.4ml syringe SUBCUT SCH (07:46)
[2020-11-25] MEDS: vitamin B comp w/Vit. C tab 1 TAB TABLET CORPAK SCH (07:47)
[2020-11-25] MEDS: atorvastatin 20mg tablet CORPAK SCH (07:47)
[2020-11-25] MEDS: fenofibrate 145mg tablet CORPAK SCH (07:47)
[2020-11-25] MEDS: lactobacillus rhamnosus 10,000 MMU CELLS/CAPSULE CORPAK SCH ×2 (07:47→21:25)
[2020-11-25] MEDS: NUT.TX.GLUC.INTOLER,LAC-FR,SOY (GLUCERNA) 237 ML CORPAK SCH ×3 (08:00→16:36)
[2020-11-25] MEDS: polyethylene glycol 3350 17gm powd pack PO SCH (08:00)
[2020-11-25] MEDS: CISatracurium besylate inj. 100 MG in normal saline 100ml IV soln 90 ML IV SCH ×2 (08:23→21:06)
[2020-11-25] MEDS: sennosides 8.6mg tablet PO SCH (21:27)
[2020-11-25] MEDS: insulin glargine (Lantus) pen - multi-dose SQ SCH (21:40)
[2020-11-26] VITALS (23 sets, daily range): BP systolic 13–171; BP diastolic 36–105
[2020-11-26] MEDS: mineral oil/petrolatum ophthal oint EACHEYE SCH ×4 (02:00→20:22)
[2020-11-26] MEDS: Insulin Reg/NS 100units/100mL 100 ML IV SCH ×4 (03:26→17:31)
[2020-11-26 03:36] LABS: BASOPHILS % (AUTO) 0.1 % (0-1); EOSINOPHILS % (AUTO) 0 % (0-6); HEMATOCRIT 30.8 % (42.0-52.0); HEMOGLOBIN 10.2 g/dl (14.0-17.9); LYMPHOCYTES # (AUTO) 0.4 X10'3 (1.1-4.8); LYMPHOCYTES % (AUTO) 2.7 % (21-51); MEAN CORPUSCULAR HEMOGLOBIN 31.6 PG (27.0-31.0); MEAN CORPUSCULAR HGB CONC 33.2 g/dL (33.0-36.5); MEAN CORPUSCULAR VOLUME 95.1 FL (78-98); MEAN PLATELET VOLUME 7.7 FL (7.4-10.4); MONOCYTES # (AUTO) 1.1 X10'3 (0-0.9); MONOCYTES % (AUTO) 6.8 % (2-12); NEUTROPHILS # (AUTO) 14.6 X10'3 (1.8-7.7); NEUTROPHILS % (AUTO) 90.4 % (42-75); PLATELET COUNT 318 X10'3 (140-440); RED BLOOD COUNT 3.24 X10'6 (4.70-6.10); RED CELL DISTRIBUTION WIDTH 13.7 % (11.5-14.5); WHITE BLOOD COUNT 16.1 X10'3 (4.5-11.0)
[2020-11-26 03:46] LABS: PARTIAL THROMBOPLASTIN TIME 23 SECONDS (22-32)
[2020-11-26] MEDS: VANCOmycin 1250MG/NS 250ml Bag 250 ML IV SCH ×3 (03:46→20:22)
[2020-11-26 03:47] LABS: ABG HCO3 31.2 mmol/L (22.0-26.0); ABG OXYGEN SATURATION 96.8 % (94-97); ABG PCO2 (T) 55.3 mmHg (35.0-48.0); FCOHb 0.2 % (0.0-3.9); FMetHb 0.3 % (0.0-1.5); FO2Hb 96.3 % (94-97); PATIENT TEMPERATURE 37.6; PEEP 14 cm H2O; RESPIRATORY RATE 20 b/min; TIDAL VOLUME 425 mL; TOTAL HEMOGLOBIN 10.7 G/dl (14.0-18.0)
[2020-11-26 03:52] LABS: ALANINE AMINOTRANSFERASE 83 U/L (12-78); ALBUMIN 1.8 G/DL (3.4-5.0); ALBUMIN/GLOBULIN RATIO 0.6 (1.1-1.5); ALKALINE PHOSPHATASE 41 IU/L (46-116); ANION GAP 3 (8-16); ASPARTATE AMINO TRANSFERASE 41 U/L (10-37); BILIRUBIN,TOTAL 0.2 MG/DL (0.1-1.0); BLOOD UREA NITROGEN 25 MG/DL (7-18); BUN/CREATININE RATIO 47.2 (5.4-32.0); C-REACTIVE PROTEIN 0.51 MG/DL (0.0-0.5); CALCIUM 6.3 MG/DL (8.5-10.1); CHLORIDE 113 MMOL/L (99-107); CREATININE 0.53 MG/DL (0.60-1.10); GLUCOSE 135 MG/DL (70-104); LACTATE DEHYDROGENASE 434 U/L (85-227); MAGNESIUM 2.6 MG/DL (1.5-2.4); PHOSPHORUS 2.1 MG/DL (2.3-4.5); SODIUM 149 MMOL/L (135-145); TOTAL CARBON DIOXIDE 33.4 MMOL/L (24-32); TOTAL PROTEIN 4.7 G/DL (6.4-8.2); eGFR > 90 ML/MIN
[2020-11-26 04:11] LABS: D-DIMER 1.09 MG/L FEU (0-0.50)
[2020-11-26] MEDS: Neutra Phos packet PO PRN (04:18)
[2020-11-26 04:20] LABS: PLATELET ESTIMATE NORMAL; TOTAL CELLS COUNTED 100
[2020-11-26] MEDS: midazolam 100mg in NS 100 ML INFUSION IV PRN ×4 (04:40→22:15)
--- NOTE | 2020-11-26 06:15 | NUR ---
Patient in room CICU 2010. I have received report from Zee LUKE and had the opportunity to ask questions and assume patient care.
[2020-11-26] MEDS: NORepinephrine 8mg/ 250ml NS 250 ML IV SCH (06:45)
[2020-11-26] MEDS: NUT.TX.GLUC.INTOLER,LAC-FR,SOY (GLUCERNA) 237 ML CORPAK SCH ×2 (08:00→13:00)
[2020-11-26] MEDS: polyethylene glycol 3350 17gm powd pack PO SCH (08:22)
[2020-11-26] MEDS: enoxaparin 40mg/0.4ml syringe SUBCUT SCH (08:22)
[2020-11-26] MEDS: cefepime 2g/NS 100ml ADVANTAGE 100 ML IV SCH ×2 (08:22→21:20)
[2020-11-26] MEDS: cholecalciferol (vitamin D3) 1,000 unit (25mcg) tablet CORPAK SCH (08:23)
[2020-11-26] MEDS: methylPREDNISolone sod succ/PF 40mg inj. IV SCH ×3 (08:23→16:48)
[2020-11-26] MEDS: pantoprazole 40 MG vial IV SCH (08:23)
[2020-11-26] MEDS: vitamin B comp w/Vit. C tab 1 TAB TABLET CORPAK SCH (08:23)
[2020-11-26] MEDS: atorvastatin 20mg tablet CORPAK SCH (08:23)
[2020-11-26] MEDS: docusate sodium 100mg/10ml UD cup CORPAK SCH ×2 (08:24→20:21)
[2020-11-26] MEDS: fenofibrate 145mg tablet CORPAK SCH (08:24)
[2020-11-26] MEDS: lactobacillus rhamnosus 10,000 MMU CELLS/CAPSULE CORPAK SCH ×2 (08:24→20:21)
--- NOTE | 2020-11-26 09:45 | NUR ---
Dr. Ayala by to round on patient reviewed, vitals, meds, and labs New orders; Dr. Ayala would like to trial nimbex off twice a shift and restart if needed. Dr. Ayala would like a BIS placed on patient Dr. Ayala ordered to restart lantus 70 units BID o2 goal is 92% changed peep to 10 and wean fio2 as tolerated On the patients left chest tube Dr. Ayala would like the outer purse string ties cut and chest tube reinforced with foam tape, he also ordered to have the purse string sutures to be cut to allow a natural air leak of the free air seen on the chest xray, and to reinforce the chest tube with foam tape for securement. He would also like wound care to place a wound vac to facilitate the removal of free air. No other new orders at this time Addendum: 11/26/20 at 1742 by Marlen Hardy RN Trial of nimbex off is not twice a shift but once a shift
[2020-11-26] MEDS: CISatracurium besylate inj. 100 MG in normal saline 100ml IV soln 90 ML IV SCH ×2 (11:25→21:20)
[2020-11-26] MEDS: FENTANYL-0.9 % NACL/PF 100 ML IV PRN ×3 (11:26→21:21)
--- NOTE | 2020-11-26 14:14 | NUR ---
Med Note Lacrilube not administered as pt on rotoprone bed in prone position - no access to eyes.
[2020-11-26] MEDS ORDERED: TOCILIZUMAB 200mg/10ml inj. 800 MG in normal saline 100ml IV soln 60 ML IV ONE (14:25)
--- NOTE | 2020-11-26 16:00 | NUR ---
Consent Dr Ayala said SHEY asked for a medial sternal chest tube placement consent. I contacted the pts , explained that [facility] wanted additional information/test prior to deciding if a transfer was in order. Consent for the procedure was given by and witnessed with Marlen Perez RN. Dr. Garcia was here. She requested an US and chest xray. Both were obtained with Dr. Rivera present. She determined the above procedure was not needed. She did have me take down the dressing to the rt chest tube. She then inserted her sterile gloved finger under the skin at that chest tube incision. She sutured the chest tube but not at the insertion site. Both sites were covered with 4x4 gauze and secured with porous tape to allow air to escape.
--- NOTE | 2020-11-26 18:30 | NUR ---
Patient in room CICU 2010. I have received report from Arturo LUKE and Marlen LUKE and had the opportunity to ask questions and assume patient care.
[2020-11-26] MEDS: sennosides 8.6mg tablet PO SCH (20:21)
[2020-11-26] MEDS: insulin glargine (Lantus) pen - multi-dose SQ SCH (20:34)
[2020-11-27] VITALS (24 sets, daily range): BP systolic 88–184; BP diastolic 42–81
[2020-11-27] MEDS: NORepinephrine 8mg/ 250ml NS 250 ML IV SCH ×2 (00:20→10:50)
--- NOTE | 2020-11-27 00:24 | NUR ---
Attempted to wean down the Nimbex as ordered by Dr. Ayala and the pt became very tachymneai Addendum: 11/27/20 at 0111 by Zee Mejia RN tachypneic, tachycardic, and hypertensive. the pt also desated on the low 80's and became dyssynchronous with the vent. The Nimbex was turned back on and the pt's sedation increased and it has taken the pt about 45 mins to recover
[2020-11-27] MEDS: methylPREDNISolone sod succ/PF 40mg inj. IV SCH ×3 (01:26→19:38)
[2020-11-27] MEDS: mineral oil/petrolatum ophthal oint EACHEYE SCH ×5 (01:26→20:00)
[2020-11-27 02:55] LABS: BASOPHILS % (AUTO) 0.1 % (0-1); EOSINOPHILS % (AUTO) 0 % (0-6); HEMATOCRIT 29.2 % (42.0-52.0); HEMOGLOBIN 9.6 g/dl (14.0-17.9); LYMPHOCYTES # (AUTO) 0.4 X10'3 (1.1-4.8); LYMPHOCYTES % (AUTO) 3.1 % (21-51); MEAN CORPUSCULAR HEMOGLOBIN 31.5 PG (27.0-31.0); MEAN CORPUSCULAR VOLUME 95.5 FL (78-98); MEAN PLATELET VOLUME 7.7 FL (7.4-10.4); MONOCYTES # (AUTO) 0.5 X10'3 (0-0.9); MONOCYTES % (AUTO) 3.9 % (2-12); NEUTROPHILS # (AUTO) 11.7 X10'3 (1.8-7.7); NEUTROPHILS % (AUTO) 92.9 % (42-75); PLATELET COUNT 291 X10'3 (140-440); RED BLOOD COUNT 3.06 X10'6 (4.70-6.10); RED CELL DISTRIBUTION WIDTH 13.8 % (11.5-14.5); WHITE BLOOD COUNT 12.6 X10'3 (4.5-11.0)
[2020-11-27 03:06] LABS: D-DIMER 1.05 MG/L FEU (0-0.50); PARTIAL THROMBOPLASTIN TIME 23 SECONDS (22-32)
[2020-11-27 03:15] LABS: ALANINE AMINOTRANSFERASE 92 U/L (12-78); ALBUMIN 1.8 G/DL (3.4-5.0); ALBUMIN/GLOBULIN RATIO 0.6 (1.1-1.5); ALKALINE PHOSPHATASE 57 IU/L (46-116); ANION GAP -1 (8-16); ASPARTATE AMINO TRANSFERASE 39 U/L (10-37); BILIRUBIN,TOTAL 0.4 MG/DL (0.1-1.0); BLOOD UREA NITROGEN 25 MG/DL (7-18); BUN/CREATININE RATIO 43.9 (5.4-32.0); CALCIUM 6.2 MG/DL (8.5-10.1); CHLORIDE 113 MMOL/L (99-107); CREATININE 0.57 MG/DL (0.60-1.10); GLUCOSE 144 MG/DL (70-104); LACTATE DEHYDROGENASE 482 U/L (85-227); MAGNESIUM 2.5 MG/DL (1.5-2.4); PHOSPHORUS 1.9 MG/DL (2.3-4.5); POTASSIUM 4.5 MMOL/L (3.5-5.1); PREALBUMIN 19.7 MG/DL (19-36); SODIUM 147 MMOL/L (135-145); TOTAL CARBON DIOXIDE 34.9 MMOL/L (24-32); TOTAL PROTEIN 4.6 G/DL (6.4-8.2); eGFR > 90 ML/MIN
[2020-11-27] MEDS: Insulin Reg/NS 100units/100mL 100 ML IV SCH ×5 (03:24→19:51)
[2020-11-27 03:31] LABS: ABG BASE EXCESS 9.8 mmol/L (-2.0-2.0); ABG HCO3 34.3 mmol/L (22.0-26.0); ABG PCO2 (T) 47.3 mmHg (35.0-48.0); ABG PO2 (T) 60.9 mmHg (75.0-100.0); FCOHb 0.2 % (0.0-3.9); FMetHb 0.2 % (0.0-1.5); FO2Hb 92.6 % (94-97); PATIENT TEMPERATURE 37.3; PEEP 10 cm H2O; RESPIRATORY RATE 20 b/min; TIDAL VOLUME 425 mL; TOTAL HEMOGLOBIN 9.4 G/dl (14.0-18.0)
[2020-11-27] MEDS: VANCOmycin 1250MG/NS 250ml Bag 250 ML IV SCH (03:45)
[2020-11-27] MEDS: Neutra Phos packet PO PRN (03:45)
[2020-11-27] MEDS: midazolam 100mg in NS 100 ML INFUSION IV PRN ×3 (03:48→23:33)
[2020-11-27] MEDS: FENTANYL-0.9 % NACL/PF 100 ML IV PRN ×4 (04:39→21:10)
[2020-11-27] MEDS: CISatracurium besylate inj. 100 MG in normal saline 100ml IV soln 90 ML IV SCH ×3 (05:52→19:43)
--- NOTE | 2020-11-27 06:15 | NUR ---
Patient in room CICU 2010. I have received report from Zee LUKE, and had the opportunity to ask questions and assume patient care.
[2020-11-27] MEDS: DEXMEDETOMIDINE 400mcg/4ml inj 400 MCG in normal saline 100ml IV soln 96 ML IV SCH ×3 (06:35→22:49)
[2020-11-27] MEDS ORDERED: methylnaltrexone br 12mg/0.6ml inj***SubQ only SQ PRN (06:35)
--- NOTE | 2020-11-27 06:38 | NUR ---
Due to discrepancy from daily weight from prior bed to rotoprone bed it appears that the bed was zeroed without the pads on it. Will continue to weigh pt to monitor gains and losses. Addendum: 11/27/20 at 0642 by Zee Mejia RN Amended: Links added.
--- NOTE | 2020-11-27 06:42 | NUR ---
Problems reprioritized. Patient report given, questions answered & plan of care reviewed with Arturo LUKE and Marlen RN.
--- NOTE | 2020-11-27 07:15 | NUR ---
Patient in room CICU 2010. I have received report from Zee LUKE and had the opportunity to ask questions and assume patient care.
[2020-11-27] MEDS: cefepime 2g/NS 100ml ADVANTAGE 100 ML IV SCH ×2 (07:43→19:37)
[2020-11-27] MEDS: polyethylene glycol 3350 17gm powd pack PO SCH (07:43)
[2020-11-27] MEDS: enoxaparin 40mg/0.4ml syringe SUBCUT SCH (07:44)
[2020-11-27] MEDS: atorvastatin 20mg tablet CORPAK SCH (07:45)
[2020-11-27] MEDS: pantoprazole 40 MG vial IV SCH (07:45)
[2020-11-27] MEDS: vitamin B comp w/Vit. C tab 1 TAB TABLET CORPAK SCH (07:45)
[2020-11-27] MEDS: docusate sodium 100mg/10ml UD cup CORPAK SCH ×2 (07:46→19:38)
[2020-11-27] MEDS: fenofibrate 145mg tablet CORPAK SCH (07:46)
[2020-11-27] MEDS: cholecalciferol (vitamin D3) 1,000 unit (25mcg) tablet CORPAK SCH (07:46)
[2020-11-27] MEDS: lactobacillus rhamnosus 10,000 MMU CELLS/CAPSULE CORPAK SCH ×2 (07:46→19:38)
[2020-11-27] MEDS: insulin glargine (Lantus) pen - multi-dose SQ SCH ×2 (07:57→19:52)
--- NOTE | 2020-11-27 09:30 | NUR ---
Dressing Change Lt Chest tube dressing changed. Applied 4x4 gauze and porous tape to allow for subQ air to vent.
--- NOTE | 2020-11-27 12:23 | NUR ---
Train of 4 Likely inaccurate as pt is overbreathing vent with a set vemt rate of 20 and RR of 20. Addendum: 11/27/20 at 1225 by Arturo Quintana RN Amended: Links added.
--- NOTE | 2020-11-27 18:12 | NUR ---
Problems reprioritized. Patient report given, questions answered & plan of care reviewed with Abby LUKE.
[2020-11-27] MEDS: sennosides 8.6mg tablet PO SCH (19:37)
--- NOTE | 2020-11-27 20:13 | NUR ---
Pt cannot tolerate supine position, unable to use eye lube.
[2020-11-27] MEDS: diatr meglu/diatrizoate 30ml oral sol.-(3 dose) bottle PO SCH (21:31)
[2020-11-27] MEDS: LORazepam 2 mg/ml vial IV PRN ×2 (21:59→23:11)
[2020-11-28] VITALS (25 sets, daily range): BP systolic 91–200; BP diastolic 41–95
[2020-11-28] MEDS: Insulin Reg/NS 100units/100mL 100 ML IV SCH ×6 (00:26→21:56)
[2020-11-28] MEDS: mineral oil/petrolatum ophthal oint EACHEYE SCH ×4 (01:56→20:23)
--- NOTE | 2020-11-28 01:57 | NUR ---
unable to put eye lube in r/t rotoprone bed cushion placement.
[2020-11-28] MEDS: FENTANYL-0.9 % NACL/PF 100 ML IV PRN ×3 (01:59→21:57)
[2020-11-28] MEDS: CISatracurium besylate inj. 100 MG in normal saline 100ml IV soln 90 ML IV SCH ×4 (02:00→19:32)
[2020-11-28] MEDS: NORepinephrine 8mg/ 250ml NS 250 ML IV SCH ×2 (03:18→18:08)
[2020-11-28 03:23] LABS: BASOPHILS % (AUTO) 0.1 % (0-1); EOSINOPHILS % (AUTO) 0 % (0-6); HEMOGLOBIN 8.6 g/dl (14.0-17.9); LYMPHOCYTES # (AUTO) 0.7 X10'3 (1.1-4.8); LYMPHOCYTES % (AUTO) 5.5 % (21-51); MEAN CORPUSCULAR HEMOGLOBIN 31.1 PG (27.0-31.0); MEAN CORPUSCULAR HGB CONC 33.1 g/dL (33.0-36.5); MEAN PLATELET VOLUME 7.5 FL (7.4-10.4); MONOCYTES # (AUTO) 0.8 X10'3 (0-0.9); MONOCYTES % (AUTO) 6.3 % (2-12); NEUTROPHILS # (AUTO) 11.7 X10'3 (1.8-7.7); NEUTROPHILS % (AUTO) 88.1 % (42-75); PLATELET COUNT 263 X10'3 (140-440); RED BLOOD COUNT 2.77 X10'6 (4.70-6.10); RED CELL DISTRIBUTION WIDTH 13.6 % (11.5-14.5); WHITE BLOOD COUNT 13.3 X10'3 (4.5-11.0)
[2020-11-28] MEDS: diatr meglu/diatrizoate 30ml oral sol.-(3 dose) bottle PO SCH ×2 (03:28→20:28)
[2020-11-28 03:35] LABS: ABG HCO3 36.6 mmol/L (22.0-26.0); ABG OXYGEN SATURATION 96.4 % (94-97); ABG PCO2 (T) 55.3 mmHg (35.0-48.0); ABG PO2 (T) 92.6 mmHg (75.0-100.0); FCOHb 0.2 % (0.0-3.9); FMetHb 0.2 % (0.0-1.5); PATIENT TEMPERATURE 37.3; PEEP 8 cm H2O; RESPIRATORY RATE 20 b/min; TIDAL VOLUME 425 mL; TOTAL HEMOGLOBIN 9.7 G/dl (14.0-18.0)
[2020-11-28 03:39] LABS: D-DIMER 1.09 MG/L FEU (0-0.50)
[2020-11-28 03:59] LABS: ALANINE AMINOTRANSFERASE 94 U/L (12-78); ALBUMIN 1.6 G/DL (3.4-5.0); ALBUMIN/GLOBULIN RATIO 0.7 (1.1-1.5); ALKALINE PHOSPHATASE 43 IU/L (46-116); ANION GAP 2 (8-16); ASPARTATE AMINO TRANSFERASE 39 U/L (10-37); BILIRUBIN,TOTAL 0.2 MG/DL (0.1-1.0); BLOOD UREA NITROGEN 28 MG/DL (7-18); BUN/CREATININE RATIO 52.8 (5.4-32.0); CALCIUM 6.4 MG/DL (8.5-10.1); CHLORIDE 112 MMOL/L (99-107); CREATININE 0.53 MG/DL (0.60-1.10); GLUCOSE 126 MG/DL (70-104); LACTATE DEHYDROGENASE 414 U/L (85-227); POTASSIUM 4.5 MMOL/L (3.5-5.1); SODIUM 149 MMOL/L (135-145); TOTAL CARBON DIOXIDE 34.9 MMOL/L (24-32); eGFR > 90 ML/MIN
[2020-11-28 04:06] LABS: C-REACTIVE PROTEIN < 0.05 MG/DL (0.0-0.5)
[2020-11-28] MEDS: LORazepam 2 mg/ml vial IV PRN ×3 (04:49→15:37)
--- NOTE | 2020-11-28 06:30 | NUR ---
Patient in room CICU 2010. I have received report from Abby LUKE and had the opportunity to ask questions and assume patient care.
[2020-11-28] MEDS: DEXMEDETOMIDINE 400mcg/4ml inj 400 MCG in normal saline 100ml IV soln 96 ML IV SCH ×3 (06:56→20:28)
[2020-11-28 07:10] LABS: MAGNESIUM 2.6 MG/DL (1.5-2.4); PHOSPHORUS 1.8 MG/DL (2.3-4.5)
[2020-11-28] MEDS: cefepime 2g/NS 100ml ADVANTAGE 100 ML IV SCH ×2 (07:43→20:22)
[2020-11-28] MEDS: pantoprazole 40 MG vial IV SCH (07:44)
[2020-11-28] MEDS: enoxaparin 40mg/0.4ml syringe SUBCUT SCH (07:44)
[2020-11-28] MEDS: methylPREDNISolone sod succ/PF 40mg inj. IV SCH ×2 (07:44→20:15)
[2020-11-28] MEDS: insulin glargine (Lantus) pen - multi-dose SQ SCH ×2 (08:00→20:14)
[2020-11-28] MEDS: albuterol 2.5 MG/3 ML nebule NEB PRN ×2 (08:36→14:36)
--- NOTE | 2020-11-28 11:14 | NUR ---
Reassessment: Pt remains intubated and now on a rotoprone bed. Pt tolerating TF at goal rate with GRV WNL. Noted serum Na elevated at 149 MMOL/L today, up from 147 MMOL/L 11/27, d/w who agrees to increase water flushes, see recommendations below. Noted patient's wt +36.6 kg since changing to rotoprone bed, likely not true wt gain. LBM 11/27, receiving routine bowel care. Will continue to follow closely and monitor need for further adjustments in nutrition interventions. Rec: 1. Continuous TF using Vital AF at 80 mL/hr goal; to provide 1920 mL volume, 2304 kcal, 1555 mL water, and 144 g protein. 2. Additional 200 mL water flush Q4H; monitor serum Na and adjust as appropriate 3. PALB Q /; daily wts 4. Routine bowel care 5. IF to advance to PO diet upon extubation; continue NG feeds until PO consistently ~65% avg meals Addendum: 11/28/20 at [address] Amended: Links added.
[2020-11-28] MEDS: lactobacillus rhamnosus 10,000 MMU CELLS/CAPSULE CORPAK SCH ×2 (11:32→20:14)
[2020-11-28] MEDS: docusate sodium 100mg/10ml UD cup CORPAK SCH ×2 (11:32→20:15)
[2020-11-28] MEDS: polyethylene glycol 3350 17gm powd pack PO SCH (11:33)
[2020-11-28] MEDS: vitamin B comp w/Vit. C tab 1 TAB TABLET CORPAK SCH (11:33)
[2020-11-28] MEDS: fenofibrate 145mg tablet CORPAK SCH (11:33)
[2020-11-28] MEDS: atorvastatin 20mg tablet CORPAK SCH (11:33)
[2020-11-28] MEDS: cholecalciferol (vitamin D3) 1,000 unit (25mcg) tablet CORPAK SCH (11:33)
--- NOTE | 2020-11-28 11:45 | NUR ---
AM Meds Held Pt going for chest/abd/pelvic CT this am. Held until CT completed.
--- NOTE | 2020-11-28 11:50 | NUR ---
Time Line of Events 11/06/ covid positive 11/14 ER with c/o increasing SOB 15L Salter to 100% non re-breather 18:36 Bipap 11/16 12:37 trans to ICU bipap 85% fio2 Insp Pre 14 Exp Pres 10 16:26 Bipap and high flow use at times(fio2 100%) 11/17 high flow 90% with Bipap as needed 11/18 07 high flow 90% with Bipap as needed 1745 Bipap 100% fio2 11/19 18:19 high flow 100% fio2 11/20 10:48 Bipap 100% fio2 Insp pre 20 Exp pres 12 12:33 Bipap 80% 17:07 Bipap 60% 11/21 Bipap 100% fio2 desats easily to the 70% with any movement 11/22 10:53 L Pneumo with sub Q air 100% fio2 intubated 100% fio2 R groin central line and R groin art line placed chest tubes x2 one to R chest and one to L chest 8 Fever over hat lacer, air leaks noted in both chest tubes vent settings 100% fio2 peep 12 11/25 Fio2 80% peep 14 nimbex started rotoprone bed ordered CXR sub Q air lifting muscle from ribs and sub q air between muscle and adipose tissue 1900 patient placed on rotoprone bed 2000 patient officially prone for the first time doctor Jose consulted for possible medial stinal chest tube 8 Fio2 60% peep of 12 peep decreased to 10 8 fio2 65% peep of 8 AM CXR free air in abdomen noted (CXR read and reported to RN at 1705 by virtual radiology) 8 fio2 70% peep 8 0710 patient supine fio2 75% [address] fio2 75% peep of [address] patient being placed back on rotoprone bed sats in low 80's Fio2 increased to 100% 1015 Dr. Ayala by to round on patient increased peep per Order to 10 fio2 down to 90%
--- NOTE | 2020-11-28 11:54 | NUR ---
Rounds Note Reviewed systems, labs, meds, vital signs and current status New orders 1. Increase peep to 10 when patient is supine increase peep to 12 2. Patient to be supine once a shift for 2hrs or as long as tolerated 3. Dr. Ayala would like to have a family meeting arranged with for tomorrow 11/29/20 @ 11am, he would like to have the participate in the patients care in regards to " helping rub out the sub Q air while the patient is supine" she will need to arrange daily to visit for only 2hrs during patients supine time. She is the only visitor to be allowed in, She is to wear full PPE N95 before entering the unit and gown, gloves and eye protection before entering the patient room. No personal belongings to be brought into the room. 4. Insulin gtt off for 3hrs, change to Q6 and cover with sub Q insulin
[2020-11-28] MEDS: midazolam 100mg in NS 100 ML INFUSION IV PRN ×3 (13:45→22:44)
[2020-11-28] MEDS: metolazone 2.5mg tablet PO SCH (16:00)
--- NOTE | 2020-11-28 18:30 | NUR ---
Problems reprioritized. Patient report given, questions answered & plan of care reviewed with Jen LUKE.
--- NOTE | 2020-11-28 18:30 | NUR ---
Patient in room CICU 2010. I have received report from Arturo LUKE and had the opportunity to ask questions and assume patient care.
[2020-11-28] MEDS: insulin regular, human U-100 3ml vial - multi-dose SQ SCH (20:13)
[2020-11-28] MEDS: sennosides 8.6mg tablet PO SCH (20:15)
[2020-11-29] VITALS (24 sets, daily range): BP systolic 99–215; BP diastolic 40–108
[2020-11-29] MEDS: CISatracurium besylate inj. 100 MG in normal saline 100ml IV soln 90 ML IV SCH ×5 (00:23→22:06)
[2020-11-29] MEDS: FENTANYL-0.9 % NACL/PF 100 ML IV PRN ×5 (01:48→23:36)
[2020-11-29] MEDS: Insulin Reg/NS 100units/100mL 100 ML IV SCH ×4 (01:48→20:15)
[2020-11-29] MEDS: mineral oil/petrolatum ophthal oint EACHEYE SCH ×4 (01:49→20:14)
[2020-11-29] MEDS: insulin regular, human U-100 3ml vial - multi-dose SQ SCH ×4 (02:10→19:57)
[2020-11-29 02:50] LABS: BASOPHILS % (AUTO) 0.1 % (0-1); EOSINOPHILS % (AUTO) 0 % (0-6); HEMATOCRIT 28.6 % (42.0-52.0); HEMOGLOBIN 9.5 g/dl (14.0-17.9); LYMPHOCYTES # (AUTO) 0.7 X10'3 (1.1-4.8); MEAN CORPUSCULAR HEMOGLOBIN 31.4 PG (27.0-31.0); MEAN CORPUSCULAR HGB CONC 33.3 g/dL (33.0-36.5); MEAN CORPUSCULAR VOLUME 94.3 FL (78-98); MEAN PLATELET VOLUME 7.4 FL (7.4-10.4); MONOCYTES % (AUTO) 5.9 % (2-12); NEUTROPHILS # (AUTO) 14.9 X10'3 (1.8-7.7); PLATELET COUNT 289 X10'3 (140-440); RED BLOOD COUNT 3.04 X10'6 (4.70-6.10); RED CELL DISTRIBUTION WIDTH 13.3 % (11.5-14.5); WHITE BLOOD COUNT 16.6 X10'3 (4.5-11.0)
[2020-11-29 03:03] LABS: PARTIAL THROMBOPLASTIN TIME 22 SECONDS (22-32)
[2020-11-29 03:09] LABS: ALANINE AMINOTRANSFERASE 120 U/L (12-78); ALBUMIN 1.9 G/DL (3.4-5.0); ALBUMIN/GLOBULIN RATIO 0.7 (1.1-1.5); ALKALINE PHOSPHATASE 41 IU/L (46-116); ANION GAP 1 (8-16); ASPARTATE AMINO TRANSFERASE 37 U/L (10-37); BILIRUBIN,TOTAL 0.3 MG/DL (0.1-1.0); BLOOD UREA NITROGEN 26 MG/DL (7-18); BUN/CREATININE RATIO 48.1 (5.4-32.0); CALCIUM 7.2 MG/DL (8.5-10.1); CHLORIDE 104 MMOL/L (99-107); CREATININE 0.54 MG/DL (0.60-1.10); GLUCOSE 246 MG/DL (70-104); LACTATE DEHYDROGENASE 387 U/L (85-227); MAGNESIUM 2.3 MG/DL (1.5-2.4); PHOSPHORUS 2.9 MG/DL (2.3-4.5); SODIUM 140 MMOL/L (135-145); TOTAL CARBON DIOXIDE 35.2 MMOL/L (24-32); TOTAL PROTEIN 4.6 G/DL (6.4-8.2); eGFR > 90 ML/MIN
[2020-11-29 03:21] LABS: D-DIMER 1.13 MG/L FEU (0-0.50)
[2020-11-29] MEDS: midazolam 100mg in NS 100 ML INFUSION IV PRN ×5 (03:45→23:35)
[2020-11-29 03:48] LABS: C-REACTIVE PROTEIN < 0.05 MG/DL (0.0-0.5)
[2020-11-29 03:52] LABS: ABG HCO3 37.5 mmol/L (22.0-26.0); ABG OXYGEN SATURATION 96.5 % (94-97); ABG PCO2 (T) 53.5 mmHg (35.0-48.0); ABG PO2 (T) 90.7 mmHg (75.0-100.0); FCOHb 0.2 % (0.0-3.9); FMetHb 0.2 % (0.0-1.5); FO2Hb 96.1 % (94-97); PATIENT TEMPERATURE 36.8; PEEP 10 cm H2O; RESPIRATORY RATE 20 b/min; TIDAL VOLUME 425 mL; TOTAL HEMOGLOBIN 9.9 G/dl (14.0-18.0)
--- NOTE | 2020-11-29 06:00 | NUR ---
Patient in room CICU 2010. I have received report from Telma LUKE and had the opportunity to ask questions and assume patient care.
--- NOTE | 2020-11-29 06:03 | NUR ---
Pt's Nimbex was decreased from 3.5 to 2mcg/kg/min, he was already 4/4 twitches at 3.5 but not fighting vent. After one hour pt was overbreathing and asynchronous with the vent. Rate increased to 3mcg/kg/min and he was again breathing with vent.
--- NOTE | 2020-11-29 06:21 | NUR ---
Problems reprioritized. Patient report given, questions answered & plan of care reviewed with Dayami LUKE.
[2020-11-29] MEDS: DEXMEDETOMIDINE 400mcg/4ml inj 400 MCG in normal saline 100ml IV soln 96 ML IV SCH ×3 (07:17→23:31)
[2020-11-29] MEDS: docusate sodium 100mg/10ml UD cup CORPAK SCH ×2 (07:35→20:14)
[2020-11-29] MEDS: metolazone 2.5mg tablet PO SCH (07:35)
[2020-11-29] MEDS: polyethylene glycol 3350 17gm powd pack PO SCH (07:35)
[2020-11-29] MEDS: methylPREDNISolone sod succ/PF 40mg inj. IV SCH ×2 (07:36→20:14)
[2020-11-29] MEDS: cholecalciferol (vitamin D3) 1,000 unit (25mcg) tablet CORPAK SCH (07:36)
[2020-11-29] MEDS: vitamin B comp w/Vit. C tab 1 TAB TABLET CORPAK SCH (07:36)
[2020-11-29] MEDS: atorvastatin 20mg tablet CORPAK SCH (07:36)
[2020-11-29] MEDS: pantoprazole 40 MG vial IV SCH (07:36)
[2020-11-29] MEDS: cefepime 2g/NS 100ml ADVANTAGE 100 ML IV SCH (07:36)
[2020-11-29] MEDS: lactobacillus rhamnosus 10,000 MMU CELLS/CAPSULE CORPAK SCH ×2 (07:36→20:14)
[2020-11-29] MEDS: fenofibrate 145mg tablet CORPAK SCH (07:36)
[2020-11-29] MEDS: enoxaparin 40mg/0.4ml syringe SUBCUT SCH (07:37)
[2020-11-29] MEDS: insulin glargine (Lantus) pen - multi-dose SQ SCH ×2 (08:52→20:04)
[2020-11-29] MEDS: NORepinephrine 8mg/ 250ml NS 250 ML IV SCH ×2 (09:00→23:36)
[2020-11-29] MEDS ORDERED: guaiFENesin/codeine phos 10ml UD oral syrup CORPAK PRN (09:23)
[2020-11-29] MEDS ORDERED: Neutra Phos packet OGT PRN (09:26)
[2020-11-29] MEDS ORDERED: enalaprilat dihydrate 2.5mg/2ml vial IV PRN (11:35)
--- NOTE | 2020-11-29 11:55 | NUR ---
Spoke with Mya over the phone and gave update on patients condition. Gave opportunity to ask questions. Informed her that pt's dad Dragan called and wanted an update. Mya stated all updates are to go through Mya only to minimize confusion, which was discussed in family meeting with YANCI Camarillo. In family meeting it was discussed that Mya is allowed to visit while pt is supined each shift from 8am-10am and 8pm-10pm.
--- NOTE | 2020-11-29 13:08 | NUR ---
Informed Dr. Ayala of chest xray results-left chest tube dislodge. stated to DC chest tube on left and to apply occlusive dressing.
--- NOTE | 2020-11-29 18:19 | NUR ---
Problems reprioritized. Patient report given, questions answered & plan of care reviewed with Telma LUKE.
--- NOTE | 2020-11-29 18:30 | NUR ---
Patient in room CICU 2010. I have received report from Dayami LUKE and had the opportunity to ask questions and assume patient care.
[2020-11-29] MEDS: sennosides 8.6mg tablet PO SCH (20:14)
--- NOTE | 2020-11-29 21:30 | NUR ---
at bedside. Pt too stimulated. SBP up to 240, HR with intermittent Afib, rate controlled 90s, Dr Martines okayed the already ordered Vasotec for BP, no need for Amiodarone at this time. Increased and bolused with Fentanyl and Versed. Vasotec did not decrease BP by much.
--- NOTE | 2020-11-29 23:00 | NUR ---
Central and Art line discontinued without complications.
[2020-11-30] VITALS (24 sets, daily range): BP systolic 88–159; BP diastolic 38–101
[2020-11-30] MEDS: mineral oil/petrolatum ophthal oint EACHEYE SCH ×4 (02:00→20:00)
[2020-11-30] MEDS: Insulin Reg/NS 100units/100mL 100 ML IV SCH ×3 (02:14→12:11)
[2020-11-30] MEDS: insulin regular, human U-100 3ml vial - multi-dose SQ SCH ×4 (02:23→21:17)
[2020-11-30] MEDS: CISatracurium besylate inj. 100 MG in normal saline 100ml IV soln 90 ML IV SCH ×5 (02:36→19:21)
[2020-11-30] MEDS: FENTANYL-0.9 % NACL/PF 100 ML IV PRN ×4 (04:02→19:05)
[2020-11-30 04:03] LABS: BASOPHILS % (AUTO) 0.2 % (0-1); HEMOGLOBIN 10.1 g/dl (14.0-17.9); LYMPHOCYTES # (AUTO) 0.6 X10'3 (1.1-4.8); MEAN PLATELET VOLUME 7.5 FL (7.4-10.4); NEUTROPHILS # (AUTO) 14.8 X10'3 (1.8-7.7)
[2020-11-30] MEDS: midazolam 100mg in NS 100 ML INFUSION IV PRN ×4 (04:03→19:04)
[2020-11-30 04:07] LABS: EOSINOPHILS % (AUTO) 0.1 % (0-6); HEMATOCRIT 30.2 % (42.0-52.0); LYMPHOCYTES % (AUTO) 3.8 % (21-51); MEAN CORPUSCULAR HEMOGLOBIN 31.6 PG (27.0-31.0); MEAN CORPUSCULAR HGB CONC 33.6 g/dL (33.0-36.5); MEAN CORPUSCULAR VOLUME 94.1 FL (78-98); MONOCYTES # (AUTO) 0.9 X10'3 (0-0.9); MONOCYTES % (AUTO) 5.4 % (2-12); NEUTROPHILS % (AUTO) 90.5 % (42-75); PLATELET COUNT 255 X10'3 (140-440); RED CELL DISTRIBUTION WIDTH 13.3 % (11.5-14.5); WHITE BLOOD COUNT 16.4 X10'3 (4.5-11.0)
[2020-11-30 04:12] LABS: ABG BASE EXCESS 12.9 mmol/L (-2.0-2.0); ABG HCO3 38.3 mmol/L (22.0-26.0); ABG PCO2 (T) 52.7 mmHg (35.0-48.0); ABG PO2 (T) 65.2 mmHg (75.0-100.0); ALLEN'S TEST POSITIVE; FCOHb 0.2 % (0.0-3.9); FMetHb 0.2 % (0.0-1.5); FO2Hb 92.6 % (94-97); PATIENT TEMPERATURE 36.7; PEEP 10 cm H2O; RESPIRATORY RATE 20 b/min; TIDAL VOLUME 425 mL; TOTAL HEMOGLOBIN 10.6 G/dl (14.0-18.0)
[2020-11-30 04:14] LABS: PARTIAL THROMBOPLASTIN TIME 23 SECONDS (22-32)
[2020-11-30 04:27] LABS: ALANINE AMINOTRANSFERASE 124 U/L (12-78); ALBUMIN 2.1 G/DL (3.4-5.0); ALBUMIN/GLOBULIN RATIO 0.8 (1.1-1.5); ALKALINE PHOSPHATASE 54 IU/L (46-116); ANION GAP 0 (8-16); ASPARTATE AMINO TRANSFERASE 51 U/L (10-37); BILIRUBIN,TOTAL 0.4 MG/DL (0.1-1.0); BLOOD UREA NITROGEN 24 MG/DL (7-18); CALCIUM 8.1 MG/DL (8.5-10.1); CHLORIDE 95 MMOL/L (99-107); CREATININE 0.49 MG/DL (0.60-1.10); GLUCOSE 206 MG/DL (70-104); MAGNESIUM 1.9 MG/DL (1.5-2.4); PHOSPHORUS 3.7 MG/DL (2.3-4.5); POTASSIUM 4.5 MMOL/L (3.5-5.1); PREALBUMIN 31.1 MG/DL (19-36); SODIUM 134 MMOL/L (135-145); TOTAL CARBON DIOXIDE 38.9 MMOL/L (24-32); TOTAL PROTEIN 4.7 G/DL (6.4-8.2); TRIGLYCERIDES 180 MG/DL (20-135); eGFR > 90 ML/MIN
[2020-11-30 05:13] LABS: BANDS% (MANUAL) 3 % (0-10); NEUTROPHILS % (MANUAL) 84 % (42-75); TOTAL CELLS COUNTED 100
[2020-11-30 05:14] LABS: LYMPHOCYTES % (MANUAL) 3 % (21-51); METAMYLEOCYTES% (MANUAL) 5 % (0-0); MONOCYTES % (MANUAL) 5 % (2-12); NUCLEATED RED BLOOD CELLS 5 /100WBC (0-0); PLATELET ESTIMATE NORMAL
--- NOTE | 2020-11-30 06:03 | NUR ---
After pt rotated for chest x ray HR elevated and he had quite a bit of ectopy. Pt hypertensive and with the movement caused him to be asynchronous with vent. Bolused with Fent and Versed.
--- NOTE | 2020-11-30 06:19 | NUR ---
Problems reprioritized. Patient report given, questions answered & plan of care reviewed with Dayami LUKE.
--- NOTE | 2020-11-30 06:32 | NUR ---
Patient in room CICU 2010. I have received report from Telma LUKE and had the opportunity to ask questions and assume patient care.
[2020-11-30] MEDS: enoxaparin 40mg/0.4ml syringe SUBCUT SCH (07:10)
[2020-11-30] MEDS: polyethylene glycol 3350 17gm powd pack PO SCH (07:10)
[2020-11-30] MEDS: lactobacillus rhamnosus 10,000 MMU CELLS/CAPSULE CORPAK SCH ×2 (07:11→20:00)
[2020-11-30] MEDS: methylPREDNISolone sod succ/PF 40mg inj. IV SCH ×2 (07:11→21:43)
[2020-11-30] MEDS: vitamin B comp w/Vit. C tab 1 TAB TABLET CORPAK SCH (07:11)
[2020-11-30] MEDS: pantoprazole 40 MG vial IV SCH (07:11)
[2020-11-30] MEDS: docusate sodium 100mg/10ml UD cup CORPAK SCH ×2 (07:11→21:44)
[2020-11-30] MEDS: metolazone 2.5mg tablet CORPAK SCH (07:11)
[2020-11-30] MEDS: cholecalciferol (vitamin D3) 1,000 unit (25mcg) tablet CORPAK SCH (07:11)
[2020-11-30] MEDS: atorvastatin 20mg tablet CORPAK SCH (07:11)
[2020-11-30] MEDS: fenofibrate 145mg tablet CORPAK SCH (07:12)
[2020-11-30] MEDS: DEXMEDETOMIDINE 400mcg/4ml inj 400 MCG in normal saline 100ml IV soln 96 ML IV SCH (07:12)
[2020-11-30] MEDS: insulin glargine (Lantus) pen - multi-dose SQ SCH ×2 (08:05→21:12)
--- NOTE | 2020-11-30 12:43 | NUR ---
Informed Dr. Ayala that pt went into afib with HR as high as 104. MD ordered to start cardizem if pt develops rapid afib with HR over 130.
[2020-11-30] MEDS: NORepinephrine 8mg/ 250ml NS 250 ML IV SCH (14:42)
--- NOTE | 2020-11-30 18:42 | NUR ---
Problems reprioritized. Patient report given, questions answered & plan of care reviewed with Martín LUKE.
--- NOTE | 2020-11-30 19:00 | NUR ---
Patient in room CICU 2010. I have received report from Dayami Bianchi RN and had the opportunity to ask questions and assume patient care.
[2020-11-30] MEDS: sennosides 8.6mg tablet PO SCH (21:46)
[2020-12-01] VITALS (23 sets, daily range): BP systolic 88–164; BP diastolic 49–109
[2020-12-01] MEDS: mineral oil/petrolatum ophthal oint EACHEYE SCH ×4 (02:00→20:00)
[2020-12-01] MEDS: insulin regular, human U-100 3ml vial - multi-dose SQ SCH ×3 (02:26→14:38)
[2020-12-01] MEDS: midazolam 100mg in NS 100 ML INFUSION IV PRN ×3 (02:43→20:56)
[2020-12-01 03:25] LABS: BASOPHILS % (AUTO) 0.1 % (0-1); LYMPHOCYTES # (AUTO) 0.8 X10'3 (1.1-4.8); NEUTROPHILS # (AUTO) 15.2 X10'3 (1.8-7.7)
[2020-12-01 03:28] LABS: EOSINOPHILS % (AUTO) 0.1 % (0-6); HEMATOCRIT 32.1 % (42.0-52.0); HEMOGLOBIN 10.8 g/dl (14.0-17.9); MEAN CORPUSCULAR HEMOGLOBIN 31.8 PG (27.0-31.0); MEAN CORPUSCULAR HGB CONC 33.8 g/dL (33.0-36.5); MEAN CORPUSCULAR VOLUME 93.9 FL (78-98); MEAN PLATELET VOLUME 7.5 FL (7.4-10.4); MONOCYTES # (AUTO) 0.7 X10'3 (0-0.9); MONOCYTES % (AUTO) 4.5 % (2-12); NEUTROPHILS % (AUTO) 90.3 % (42-75); PLATELET COUNT 256 X10'3 (140-440); RED BLOOD COUNT 3.41 X10'6 (4.70-6.10); RED CELL DISTRIBUTION WIDTH 13.8 % (11.5-14.5); WHITE BLOOD COUNT 16.8 X10'3 (4.5-11.0)
[2020-12-01 03:34] LABS: PARTIAL THROMBOPLASTIN TIME 23 SECONDS (22-32)
[2020-12-01 03:44] LABS: ALANINE AMINOTRANSFERASE 136 U/L (12-78); ALBUMIN 2.3 G/DL (3.4-5.0); ALBUMIN/GLOBULIN RATIO 0.8 (1.1-1.5); ALKALINE PHOSPHATASE 51 IU/L (46-116); ANION GAP -1 (8-16); ASPARTATE AMINO TRANSFERASE 53 U/L (10-37); BILIRUBIN,TOTAL 0.4 MG/DL (0.1-1.0); BLOOD UREA NITROGEN 23 MG/DL (7-18); BUN/CREATININE RATIO 41.8 (5.4-32.0); CALCIUM 8.2 MG/DL (8.5-10.1); CHLORIDE 93 MMOL/L (99-107); CREATININE 0.55 MG/DL (0.60-1.10); GLUCOSE 172 MG/DL (70-104); MAGNESIUM 1.7 MG/DL (1.5-2.4); PHOSPHORUS 3.4 MG/DL (2.3-4.5); POTASSIUM 4.1 MMOL/L (3.5-5.1); SODIUM 131 MMOL/L (135-145); TOTAL CARBON DIOXIDE 39.4 MMOL/L (24-32); TOTAL PROTEIN 5.2 G/DL (6.4-8.2); eGFR > 90 ML/MIN
[2020-12-01 03:44] LABS: ABG BASE EXCESS 10.8 mmol/L (-2.0-2.0); ABG HCO3 35.2 mmol/L (22.0-26.0); ABG OXYGEN SATURATION 96.1 % (94-97); ABG PCO2 (T) 45.8 mmHg (35.0-48.0); ABG PO2 (T) 78.7 mmHg (75.0-100.0); ALLEN'S TEST POSITIVE; FCOHb 0.1 % (0.0-3.9); FMetHb 0.1 % (0.0-1.5); FO2Hb 95.9 % (94-97); PATIENT TEMPERATURE 36.9; PEEP 10 cm H2O; RESPIRATORY RATE 20 b/min; TIDAL VOLUME 425 mL; TOTAL HEMOGLOBIN 11.3 G/dl (14.0-18.0)
--- NOTE | 2020-12-01 06:00 | NUR ---
Patient in room CICU 2010. I have received report from Matrín LUKE and had the opportunity to ask questions and assume patient care.
[2020-12-01] MEDS: NORepinephrine 8mg/ 250ml NS 250 ML IV SCH (06:50)
[2020-12-01] MEDS: fenofibrate 145mg tablet CORPAK SCH (07:15)
[2020-12-01] MEDS: docusate sodium 100mg/10ml UD cup CORPAK SCH ×2 (07:15→21:21)
[2020-12-01] MEDS: atorvastatin 20mg tablet CORPAK SCH (07:15)
[2020-12-01] MEDS: cholecalciferol (vitamin D3) 1,000 unit (25mcg) tablet CORPAK SCH (07:15)
[2020-12-01] MEDS: vitamin B comp w/Vit. C tab 1 TAB TABLET CORPAK SCH (07:15)
[2020-12-01] MEDS: lactobacillus rhamnosus 10,000 MMU CELLS/CAPSULE CORPAK SCH ×2 (07:15→21:22)
[2020-12-01] MEDS: metolazone 2.5mg tablet CORPAK SCH (07:15)
[2020-12-01] MEDS: polyethylene glycol 3350 17gm powd pack PO SCH (07:15)
[2020-12-01] MEDS: enoxaparin 40mg/0.4ml syringe SUBCUT SCH (07:16)
[2020-12-01] MEDS: methylPREDNISolone sod succ/PF 40mg inj. IV SCH ×2 (07:29→21:30)
[2020-12-01] MEDS: pantoprazole 40 MG vial IV SCH (07:29)
--- NOTE | 2020-12-01 08:00 | NUR ---
Shannon at bedside, updated her on pt's condition. Shannon was given the opportunity to ask questions.
[2020-12-01] MEDS: insulin glargine (Lantus) pen - multi-dose SQ SCH ×2 (08:21→21:16)
[2020-12-01] MEDS: LORazepam 2 mg/ml vial IV PRN ×2 (08:43→11:08)
[2020-12-01] MEDS: FENTANYL-0.9 % NACL/PF 100 ML IV PRN ×2 (09:38→22:27)
[2020-12-01] MEDS ORDERED: dexmedetomidin/NS 400mcg/100ml 100 ML IV SCH (11:00)
[2020-12-01] MEDS ORDERED: LORazepam 2 mg/ml vial IV PRN (11:20)
[2020-12-01] MEDS: DEXMEDETOMIDINE IV SCH ×2 (11:28→19:38)
[2020-12-01] MEDS: NS IV SCH ×2 (11:28→19:38)
[2020-12-01 12:23] LABS: CLARITY,URINE CLOUDY (Clear); COLOR,URINE YELLOW (Yellow); GLUCOSE, URINE 100 mg/dl (Neg); KETONES,URINE NEGATIVE (Neg); LEUKOCYTE ESTERASE ,URINE NEGATIVE (Neg); NITRITES, URINE NEGATIVE (Neg); OCCULT BLOOD,URINE NEGATIVE (Neg); PH,URINE 8.5 (4.8-8.0); PROTEIN,URINE NEGATIVE (Neg); UROBILINOGEN,URINE 0.2 E.U/dL (0.2-1.0)
[2020-12-01 12:25] LABS: UA COLLECTION TYPE FOLEY CATH
[2020-12-01 12:34] LABS: YEAST MODERATE /HPF (NEGATIVE)
[2020-12-01 12:35] LABS: AMORPHOUS PHOSPHATES 3+; RBC,URINE 0-2 /HPF (0-2); WBC,URINE NONE SEEN /HPF (0-4)
[2020-12-01 12:36] LABS: BACTERIA,URINE NONE SEEN /HPF (Neg); MUCUS STRANDS FEW /LPF (Neg); SQUAMOUS EPITHELIAL CELL,UR FEW /LPF (FEW)
--- NOTE | 2020-12-01 13:45 | NUR ---
Reassessment: Pt remains intubated and tolerating TF at goal rate with GRV WNL. 200 mL water flush Q4H was discontinued in EMR, pt continues receiving 125 mL water flush Q4H with serum Na 131 MMOL/L today. Consider further adjusting water flushes if serum Na continues on downtrend. LBM 8 with a rectal tube in place, documented with 800 mL stool output per I&O. Per EMR pt with diarrhea though noted pt continues receiving routine bowel care. Will continue to follow closely. Rec: 1. Continuous TF using Vital AF at 80 mL/hr goal; to provide 1920 mL volume, 2304 kcal, 1555 mL water, and 144 g protein. 2. Additional 125 mL water flush Q4H; monitor serum Na and adjust as appropriate 3. PALB q /; daily wts 4. Routine bowel care 5. IF to advance to PO diet upon extubation; continue NG feeds until PO intake consistently averages 65% of meals 6. DM education once stable following extubation, A1c 8.6% Addendum: 12/01/20 at [address] Amended: Links added.
[2020-12-01] MEDS ORDERED: NORepinephrine 8mg/ 250ml NS 250 ML IV ONE (13:56)
[2020-12-01] MEDS ORDERED: normal saline 1000ml 1,000 ML IV ONE (14:55)
[2020-12-01] MEDS ORDERED: albumin (human) 25% 100 ML IV solution IV ONE (14:55)
[2020-12-01] MEDS: guaiFENesin/codeine phos 10ml UD oral syrup CORPAK SCH ×2 (15:33→21:21)
[2020-12-01 15:51] LABS: ABG BASE EXCESS 10.1 mmol/L (-2.0-2.0); ABG HCO3 34.9 mmol/L (22.0-26.0); ABG OXYGEN SATURATION 95.7 % (94-97); ABG PCO2 (T) 47.1 mmHg (35.0-48.0); ABG PO2 (T) 78.9 mmHg (75.0-100.0); FCOHb 0.2 % (0.0-3.9); FMetHb 0.2 % (0.0-1.5); FO2Hb 95.3 % (94-97); PATIENT TEMPERATURE 36.6; PEEP 12 cm H2O; RESPIRATORY RATE 20 b/min; TIDAL VOLUME 425 mL; TOTAL HEMOGLOBIN 10.9 G/dl (14.0-18.0)
[2020-12-01] MEDS: morphine 2 MG/ML inj. syringe IV PRN ×2 (16:26→17:40)
[2020-12-01] MEDS: albuterol 2.5 MG/3 ML nebule NEB PRN ×2 (17:26→22:56)
[2020-12-01] MEDS: sennosides 8.6mg tablet PO SCH (21:23)
[2020-12-01 22:36] LABS: ALANINE AMINOTRANSFERASE 106 U/L (12-78); ALBUMIN 3.1 G/DL (3.4-5.0); ALBUMIN/GLOBULIN RATIO 1.4 (1.1-1.5); ALKALINE PHOSPHATASE 51 IU/L (46-116); ANION GAP 4 (8-16); ASPARTATE AMINO TRANSFERASE 33 U/L (10-37); BILIRUBIN,TOTAL 0.4 MG/DL (0.1-1.0); BLOOD UREA NITROGEN 25 MG/DL (7-18); CALCIUM 8.2 MG/DL (8.5-10.1); CHLORIDE 98 MMOL/L (99-107); CREATININE 0.61 MG/DL (0.60-1.10); GLUCOSE 152 MG/DL (70-104); POTASSIUM 3.6 MMOL/L (3.5-5.1); SODIUM 140 MMOL/L (135-145); TOTAL PROTEIN 5.3 G/DL (6.4-8.2); eGFR > 90 ML/MIN
[2020-12-01 23:17] LABS: MAGNESIUM 1.8 MG/DL (1.5-2.4); PHOSPHORUS 3.4 MG/DL (2.3-4.5)
[2020-12-02] VITALS (24 sets, daily range): BP systolic 87–162; BP diastolic 38–87
[2020-12-02] MEDS: midazolam 100mg in NS 100 ML INFUSION IV PRN ×5 (00:44→20:32)
[2020-12-02] MEDS: FENTANYL-0.9 % NACL/PF 100 ML IV PRN ×3 (02:42→13:17)
[2020-12-02] MEDS: insulin regular, human U-100 3ml vial - multi-dose SQ SCH ×3 (02:48→13:19)
[2020-12-02] MEDS: mineral oil/petrolatum ophthal oint EACHEYE SCH ×3 (02:57→13:16)
[2020-12-02] MEDS: albuterol 2.5 MG/3 ML nebule NEB PRN ×3 (03:21→22:55)
[2020-12-02 03:24] LABS: BASOPHILS % (AUTO) 0.2 % (0-1); EOSINOPHILS % (AUTO) 0.2 % (0-6); HEMATOCRIT 27.4 % (42.0-52.0); HEMOGLOBIN 9.3 g/dl (14.0-17.9); LYMPHOCYTES # (AUTO) 0.4 X10'3 (1.1-4.8); LYMPHOCYTES % (AUTO) 3.2 % (21-51); MEAN CORPUSCULAR HEMOGLOBIN 32.3 PG (27.0-31.0); MEAN CORPUSCULAR HGB CONC 33.8 g/dL (33.0-36.5); MEAN CORPUSCULAR VOLUME 95.6 FL (78-98); MEAN PLATELET VOLUME 7.4 FL (7.4-10.4); MONOCYTES # (AUTO) 0.5 X10'3 (0-0.9); MONOCYTES % (AUTO) 4.7 % (2-12); NEUTROPHILS # (AUTO) 10.2 X10'3 (1.8-7.7); NEUTROPHILS % (AUTO) 91.7 % (42-75); PLATELET COUNT 182 X10'3 (140-440); RED BLOOD COUNT 2.87 X10'6 (4.70-6.10); WHITE BLOOD COUNT 11.1 X10'3 (4.5-11.0)
[2020-12-02 03:42] LABS: PARTIAL THROMBOPLASTIN TIME 24 SECONDS (22-32)
[2020-12-02 03:45] LABS: ABG BASE EXCESS 9.7 mmol/L (-2.0-2.0); ABG HCO3 33.7 mmol/L (22.0-26.0); ABG OXYGEN SATURATION 96.2 % (94-97); ABG PCO2 (T) 43.1 mmHg (35.0-48.0); ABG PO2 (T) 80.2 mmHg (75.0-100.0); ALLEN'S TEST Modified; FCOHb 0.3 % (0.0-3.9); FMetHb 0.1 % (0.0-1.5); FO2Hb 95.8 % (94-97); PATIENT TEMPERATURE 36.8; PEEP 10 cm H2O; RESPIRATORY RATE 20 b/min; TIDAL VOLUME 500 mL; TOTAL HEMOGLOBIN 9.6 G/dl (14.0-18.0)
[2020-12-02 03:54] LABS: ALANINE AMINOTRANSFERASE 116 U/L (12-78); ALBUMIN/GLOBULIN RATIO 1.3 (1.1-1.5); ALKALINE PHOSPHATASE 43 IU/L (46-116); ANION GAP 3 (8-16); ASPARTATE AMINO TRANSFERASE 41 U/L (10-37); BILIRUBIN,TOTAL 0.4 MG/DL (0.1-1.0); BLOOD UREA NITROGEN 24 MG/DL (7-18); BUN/CREATININE RATIO 40.7 (5.4-32.0); CALCIUM 8.1 MG/DL (8.5-10.1); CHLORIDE 98 MMOL/L (99-107); CREATININE 0.59 MG/DL (0.60-1.10); GLUCOSE 183 MG/DL (70-104); MAGNESIUM 1.7 MG/DL (1.5-2.4); PHOSPHORUS 3.8 MG/DL (2.3-4.5); POTASSIUM 4.1 MMOL/L (3.5-5.1); SODIUM 137 MMOL/L (135-145); TOTAL CARBON DIOXIDE 36.2 MMOL/L (24-32); TOTAL PROTEIN 5.3 G/DL (6.4-8.2); eGFR > 90 ML/MIN
[2020-12-02] MEDS: NS IV SCH ×2 (04:11→09:41)
[2020-12-02] MEDS: DEXMEDETOMIDINE IV SCH ×2 (04:11→09:41)
[2020-12-02] MEDS: pantoprazole 40 MG vial IV SCH (07:30)
[2020-12-02] MEDS: atorvastatin 20mg tablet CORPAK SCH (07:30)
[2020-12-02] MEDS: cholecalciferol (vitamin D3) 1,000 unit (25mcg) tablet CORPAK SCH (07:30)
[2020-12-02] MEDS: docusate sodium 100mg/10ml UD cup CORPAK SCH ×2 (07:30→21:38)
[2020-12-02] MEDS: methylPREDNISolone sod succ/PF 40mg inj. IV SCH ×2 (07:30→21:40)
[2020-12-02] MEDS: lactobacillus rhamnosus 10,000 MMU CELLS/CAPSULE CORPAK SCH ×2 (07:30→21:38)
[2020-12-02] MEDS: polyethylene glycol 3350 17gm powd pack PO SCH (07:30)
[2020-12-02] MEDS: fenofibrate 145mg tablet CORPAK SCH (07:30)
[2020-12-02] MEDS: enoxaparin 40mg/0.4ml syringe SUBCUT SCH (07:31)
[2020-12-02] MEDS: QUEtiapine 25mg tablet PO SCH ×2 (07:31→21:38)
[2020-12-02] MEDS: guaiFENesin/codeine phos 10ml UD oral syrup CORPAK SCH ×3 (07:31→21:43)
[2020-12-02] MEDS: vitamin B comp w/Vit. C tab 1 TAB TABLET CORPAK SCH (07:31)
[2020-12-02] MEDS: insulin glargine (Lantus) pen - multi-dose SQ SCH ×2 (07:51→20:57)
[2020-12-02] MEDS: CISatracurium besylate inj. 100 MG in normal saline 100ml IV soln 90 ML IV SCH (14:41)
--- NOTE | 2020-12-02 18:20 | NUR ---
Problems reprioritized. Patient report given, questions answered & plan of care reviewed with Martín LUKE.
--- NOTE | 2020-12-02 19:00 | NUR ---
Patient in room CICU 2010. I have received report from Gabe LUKE and had the opportunity to ask questions and assume patient care.
[2020-12-02] MEDS: sennosides 8.6mg tablet PO SCH (21:00)
[2020-12-02] MEDS: fluconazole-Diflucan 200mg/NS 100 ML IV SCH (21:38)
[2020-12-03] VITALS (24 sets, daily range): BP systolic 95–158; BP diastolic 48–99
[2020-12-03] MEDS: insulin regular, human U-100 3ml vial - multi-dose SQ SCH ×4 (02:59→20:20)
[2020-12-03] MEDS: albuterol 2.5 MG/3 ML nebule NEB PRN (03:08)
[2020-12-03 03:29] LABS: ABG BASE EXCESS 7.5 mmol/L (-2.0-2.0); ABG HCO3 31.9 mmol/L (22.0-26.0); ABG PCO2 (T) 44.5 mmHg (35.0-48.0); ABG PO2 (T) 63.6 mmHg (75.0-100.0); ALLEN'S TEST Modified; FCOHb 0.3 % (0.0-3.9); FMetHb 0.3 % (0.0-1.5); FO2Hb 91.4 % (94-97); PATIENT TEMPERATURE 37.1; PEEP 10 cm H2O; RESPIRATORY RATE 18 b/min; TIDAL VOLUME 500 mL; TOTAL HEMOGLOBIN 10.3 G/dl (14.0-18.0)
[2020-12-03 03:46] LABS: BASOPHILS % (AUTO) 0.1 % (0-1); EOSINOPHILS % (AUTO) 0.4 % (0-6); HEMATOCRIT 28.8 % (42.0-52.0); HEMOGLOBIN 9.4 g/dl (14.0-17.9); LYMPHOCYTES # (AUTO) 0.5 X10'3 (1.1-4.8); LYMPHOCYTES % (AUTO) 3.4 % (21-51); MEAN CORPUSCULAR HGB CONC 32.8 g/dL (33.0-36.5); MEAN CORPUSCULAR VOLUME 97.7 FL (78-98); MEAN PLATELET VOLUME 7.8 FL (7.4-10.4); MONOCYTES # (AUTO) 0.5 X10'3 (0-0.9); NEUTROPHILS # (AUTO) 12.1 X10'3 (1.8-7.7); NEUTROPHILS % (AUTO) 92.1 % (42-75); PLATELET COUNT 184 X10'3 (140-440); RED BLOOD COUNT 2.95 X10'6 (4.70-6.10); RED CELL DISTRIBUTION WIDTH 14.6 % (11.5-14.5); WHITE BLOOD COUNT 13.1 X10'3 (4.5-11.0)
[2020-12-03 04:17] LABS: NUCLEATED RED BLOOD CELLS 1 /100WBC (0-0); PLATELET ESTIMATE NORMAL; TOTAL CELLS COUNTED 100
[2020-12-03 04:23] LABS: PARTIAL THROMBOPLASTIN TIME 22 SECONDS (22-32)
[2020-12-03 04:40] LABS: ALANINE AMINOTRANSFERASE 102 U/L (12-78); ALBUMIN 2.7 G/DL (3.4-5.0); ALKALINE PHOSPHATASE 45 IU/L (46-116); ANION GAP 3 (8-16); ASPARTATE AMINO TRANSFERASE 30 U/L (10-37); BILIRUBIN,TOTAL 0.4 MG/DL (0.1-1.0); BLOOD UREA NITROGEN 27 MG/DL (7-18); BUN/CREATININE RATIO 45.8 (5.4-32.0); CALCIUM 8.3 MG/DL (8.5-10.1); CHLORIDE 105 MMOL/L (99-107); CREATININE 0.59 MG/DL (0.60-1.10); GLUCOSE 210 MG/DL (70-104); MAGNESIUM 2.1 MG/DL (1.5-2.4); PHOSPHORUS 3.4 MG/DL (2.3-4.5); POTASSIUM 4.2 MMOL/L (3.5-5.1); SODIUM 143 MMOL/L (135-145); TOTAL PROTEIN 5.5 G/DL (6.4-8.2); eGFR > 90 ML/MIN
--- NOTE | 2020-12-03 06:30 | NUR ---
Patient in room CICU 2010. I have received report from MARLY Resendiz and had the opportunity to ask questions and assume patient care.
[2020-12-03] MEDS: methylPREDNISolone sod succ/PF 40mg inj. IV SCH ×2 (07:57→20:11)
[2020-12-03] MEDS: pantoprazole 40 MG vial IV SCH (07:57)
[2020-12-03] MEDS: lactobacillus rhamnosus 10,000 MMU CELLS/CAPSULE CORPAK SCH ×2 (07:57→20:10)
[2020-12-03] MEDS: docusate sodium 100mg/10ml UD cup CORPAK SCH ×2 (07:57→19:50)
[2020-12-03] MEDS: cholecalciferol (vitamin D3) 1,000 unit (25mcg) tablet CORPAK SCH (07:58)
[2020-12-03] MEDS: vitamin B comp w/Vit. C tab 1 TAB TABLET CORPAK SCH (07:58)
[2020-12-03] MEDS: guaiFENesin/codeine phos 10ml UD oral syrup CORPAK SCH ×3 (07:58→20:34)
[2020-12-03] MEDS: QUEtiapine 25mg tablet PO SCH ×2 (07:59→20:10)
[2020-12-03] MEDS: polyethylene glycol 3350 17gm powd pack PO SCH (08:00)
[2020-12-03] MEDS: fenofibrate 145mg tablet CORPAK SCH (08:00)
[2020-12-03] MEDS: atorvastatin 20mg tablet CORPAK SCH (08:00)
[2020-12-03] MEDS: enoxaparin 40mg/0.4ml syringe SUBCUT SCH (08:01)
[2020-12-03] MEDS: mineral oil/petrolatum ophthal oint EACHEYE SCH ×4 (08:02→20:10)
[2020-12-03] MEDS: insulin glargine (Lantus) pen - multi-dose SQ SCH ×2 (08:21→20:17)
[2020-12-03] MEDS: midazolam 100mg in NS 100 ML INFUSION IV PRN ×3 (08:45→19:16)
[2020-12-03] MEDS: fluconazole-Diflucan 200mg/NS 100 ML IV SCH (09:35)
[2020-12-03] MEDS: FENTANYL-0.9 % NACL/PF 100 ML IV PRN ×3 (09:59→20:51)
--- NOTE | 2020-12-03 18:18 | NUR ---
Problems reprioritized. Patient report given, questions answered & plan of care reviewed with MARLY Mora.
[2020-12-03 20:04] LABS: D-DIMER 0.93 MG/L FEU (0-0.50)
[2020-12-04] VITALS (23 sets, daily range): BP systolic 86–176; BP diastolic 50–101
[2020-12-04] MEDS: midazolam 100mg in NS 100 ML INFUSION IV PRN ×4 (00:39→17:58)
[2020-12-04] MEDS: mineral oil/petrolatum ophthal oint EACHEYE SCH ×4 (02:21→20:09)
[2020-12-04] MEDS: insulin regular, human U-100 3ml vial - multi-dose SQ SCH ×3 (02:21→20:05)
[2020-12-04] MEDS: FENTANYL-0.9 % NACL/PF 100 ML IV PRN ×4 (02:41→18:11)
[2020-12-04 03:25] LABS: ABG BASE EXCESS 3.7 mmol/L (-2.0-2.0); ABG HCO3 28.1 mmol/L (22.0-26.0); ABG OXYGEN SATURATION 97.7 % (94-97); ABG PCO2 (T) 41.1 mmHg (35.0-48.0); ABG PO2 (T) 107.1 mmHg (75.0-100.0); ALLEN'S TEST POSITIVE; FCOHb 0.3 % (0.0-3.9); FO2Hb 97.4 % (94-97); PATIENT TEMPERATURE 36.8; PEEP 10 cm H2O; RESPIRATORY RATE 18 b/min; TIDAL VOLUME 425 mL; TOTAL HEMOGLOBIN 9.5 G/dl (14.0-18.0)
[2020-12-04 04:17] LABS: PLATELET ESTIMATE NORMAL; POLYCHROMASIA FEW; TOTAL CELLS COUNTED 100
[2020-12-04 06:24] LABS: BASOPHILS % (AUTO) 0.1 % (0-1); EOSINOPHILS % (AUTO) 0.1 % (0-6); HEMATOCRIT 27.3 % (42.0-52.0); HEMOGLOBIN 8.9 g/dl (14.0-17.9); LYMPHOCYTES # (AUTO) 0.3 X10'3 (1.1-4.8); LYMPHOCYTES % (AUTO) 2.6 % (21-51); MEAN CORPUSCULAR HEMOGLOBIN 32.1 PG (27.0-31.0); MEAN CORPUSCULAR HGB CONC 32.7 g/dL (33.0-36.5); MEAN CORPUSCULAR VOLUME 98.2 FL (78-98); MEAN PLATELET VOLUME 7.7 FL (7.4-10.4); MONOCYTES # (AUTO) 0.4 X10'3 (0-0.9); MONOCYTES % (AUTO) 3.7 % (2-12); NEUTROPHILS # (AUTO) 10.8 X10'3 (1.8-7.7); NEUTROPHILS % (AUTO) 93.5 % (42-75); PLATELET COUNT 145 X10'3 (140-440); RED BLOOD COUNT 2.78 X10'6 (4.70-6.10); RED CELL DISTRIBUTION WIDTH 15.5 % (11.5-14.5); WHITE BLOOD COUNT 11.5 X10'3 (4.5-11.0)
[2020-12-04] MEDS: cholecalciferol (vitamin D3) 1,000 unit (25mcg) tablet CORPAK SCH (07:55)
[2020-12-04] MEDS: atorvastatin 20mg tablet CORPAK SCH (07:55)
[2020-12-04] MEDS: QUEtiapine 25mg tablet PO SCH ×2 (07:55→20:09)
[2020-12-04] MEDS: guaiFENesin/codeine phos 10ml UD oral syrup CORPAK SCH ×3 (07:55→20:11)
[2020-12-04] MEDS: vitamin B comp w/Vit. C tab 1 TAB TABLET CORPAK SCH (07:55)
[2020-12-04] MEDS: fenofibrate 145mg tablet CORPAK SCH (07:55)
[2020-12-04] MEDS: lactobacillus rhamnosus 10,000 MMU CELLS/CAPSULE CORPAK SCH ×2 (07:56→20:09)
[2020-12-04] MEDS: methylPREDNISolone sod succ/PF 40mg inj. IV SCH (07:56)
[2020-12-04] MEDS: pantoprazole 40 MG vial IV SCH (07:56)
[2020-12-04] MEDS: fluconazole-Diflucan 200mg/NS 100 ML IV SCH (07:56)
[2020-12-04] MEDS: enoxaparin 40mg/0.4ml syringe SUBCUT SCH (07:58)
[2020-12-04] MEDS: docusate sodium 100mg/10ml UD cup CORPAK SCH ×2 (07:59→20:09)
[2020-12-04] MEDS: insulin glargine (Lantus) pen - multi-dose SQ SCH ×2 (09:00→20:06)
[2020-12-04 10:04] LABS: ALANINE AMINOTRANSFERASE 76 U/L (12-78); ALBUMIN 2.5 G/DL (3.4-5.0); ALBUMIN/GLOBULIN RATIO 0.9 (1.1-1.5); ALKALINE PHOSPHATASE 55 IU/L (46-116); ANION GAP 5 (8-16); ASPARTATE AMINO TRANSFERASE 21 U/L (10-37); BILIRUBIN,TOTAL 0.4 MG/DL (0.1-1.0); BLOOD UREA NITROGEN 28 MG/DL (7-18); BUN/CREATININE RATIO 62.2 (5.4-32.0); CALCIUM 7.6 MG/DL (8.5-10.1); CHLORIDE 106 MMOL/L (99-107); CREATININE 0.45 MG/DL (0.60-1.10); GLUCOSE 114 MG/DL (70-104); POTASSIUM 3.7 MMOL/L (3.5-5.1); SODIUM 141 MMOL/L (135-145); TOTAL CARBON DIOXIDE 29.6 MMOL/L (24-32); TOTAL PROTEIN 5.2 G/DL (6.4-8.2); eGFR > 90 ML/MIN
--- NOTE | 2020-12-04 12:26 | NUR ---
F/u 12/04: Pt tolerating TF at goal GRV WNL. Rectal tube -400ml down from prior 800ml output and now removed this AM per EMR. Pt prior bowel care initially given for constipation now stopped or held. PALB 26.7 this AM. Will continue to monitor for nutrition support needs on vent. Rec: 1. Continuous TF using Vital AF at 80 mL/hr goal; to provide 1920 mL volume, 2304 kcal, 1555 mL water, and 144 g protein. 2. Additional 125 mL water flush Q4H; monitor serum Na and adjust as appropriate 3. PALB q /; daily wts 4. Routine bowel care 5. IF to advance to PO diet upon extubation; continue NG feeds until PO intake consistently averages 65% of meals 6. DM education once appropriate following extubation, A1c 8.6% Addendum: 12/04/20 at [address] Amended: Links added.
[2020-12-04] MEDS ORDERED: metoprolol tartrate 1mg/ml inj IV ONE ×2 (15:45→18:55)
--- NOTE | 2020-12-04 18:15 | NUR ---
Problems reprioritized. Patient report given, questions answered & plan of care reviewed with MARLY Hollis.
--- NOTE | 2020-12-04 18:21 | NUR ---
Patient in room CICU 2010. I have received report from Rohan LUKE and had the opportunity to ask questions and assume patient care.
[2020-12-04] MEDS: propofol 1000mg/100ml bottle 100 ML IV SCH (19:40)
[2020-12-05] VITALS (24 sets, daily range): BP systolic 90–155; BP diastolic 39–82
[2020-12-05] MEDS: midazolam 100mg in NS 100 ML INFUSION IV PRN ×4 (01:14→23:24)
--- NOTE | 2020-12-05 01:43 | NUR ---
Pt's right side chest with increased SQ air, Chest xray done and pneumo noted. Dr Fagan notified and vent setting changes made. New dressing was placed and the pt remained stable. The hope is he will able to have a chest tube placed by IR guided, since he has had so much difficulty with the others placed at bedside.
[2020-12-05] MEDS: mineral oil/petrolatum ophthal oint EACHEYE SCH ×4 (02:13→20:40)
[2020-12-05] MEDS: insulin regular, human U-100 3ml vial - multi-dose SQ SCH ×3 (02:18→20:45)
[2020-12-05] MEDS: FENTANYL-0.9 % NACL/PF 100 ML IV PRN ×3 (02:19→18:48)
[2020-12-05 02:56] LABS: BASOPHILS % (AUTO) 0.1 % (0-1); EOSINOPHILS # (AUTO) 0.1 X10'3 (0-0.9); EOSINOPHILS % (AUTO) 0.6 % (0-6); HEMATOCRIT 30.7 % (42.0-52.0); HEMOGLOBIN 10.1 g/dl (14.0-17.9); LYMPHOCYTES # (AUTO) 0.4 X10'3 (1.1-4.8); LYMPHOCYTES % (AUTO) 3.8 % (21-51); MEAN CORPUSCULAR HEMOGLOBIN 32.4 PG (27.0-31.0); MEAN CORPUSCULAR HGB CONC 32.8 g/dL (33.0-36.5); MEAN CORPUSCULAR VOLUME 98.7 FL (78-98); MEAN PLATELET VOLUME 7.5 FL (7.4-10.4); MONOCYTES # (AUTO) 0.3 X10'3 (0-0.9); MONOCYTES % (AUTO) 2.5 % (2-12); NEUTROPHILS # (AUTO) 9.5 X10'3 (1.8-7.7); PLATELET COUNT 147 X10'3 (140-440); RED BLOOD COUNT 3.11 X10'6 (4.70-6.10); RED CELL DISTRIBUTION WIDTH 15.9 % (11.5-14.5); WHITE BLOOD COUNT 10.2 X10'3 (4.5-11.0)
[2020-12-05 03:19] LABS: ALBUMIN 2.4 G/DL (3.4-5.0); ALBUMIN/GLOBULIN RATIO 0.9 (1.1-1.5); ANION GAP 6 (8-16); BILIRUBIN,TOTAL 0.4 MG/DL (0.1-1.0); BLOOD UREA NITROGEN 21 MG/DL (7-18); BUN/CREATININE RATIO 48.8 (5.4-32.0); CALCIUM 7.6 MG/DL (8.5-10.1); CHLORIDE 103 MMOL/L (99-107); CREATININE 0.43 MG/DL (0.60-1.10); GLUCOSE 115 MG/DL (70-104); MAGNESIUM 1.7 MG/DL (1.5-2.4); PHOSPHORUS 2.6 MG/DL (2.3-4.5); POTASSIUM 3.6 MMOL/L (3.5-5.1); SODIUM 137 MMOL/L (135-145); TOTAL CARBON DIOXIDE 28.3 MMOL/L (24-32); TOTAL PROTEIN 5.1 G/DL (6.4-8.2); eGFR > 90 ML/MIN
[2020-12-05 03:20] LABS: ALANINE AMINOTRANSFERASE 76 U/L (12-78); ALKALINE PHOSPHATASE 63 IU/L (46-116); ASPARTATE AMINO TRANSFERASE 26 U/L (10-37)
[2020-12-05 03:22] LABS: ABG BASE EXCESS 4.1 mmol/L (-2.0-2.0); ABG HCO3 27.8 mmol/L (22.0-26.0); ABG OXYGEN SATURATION 97.6 % (94-97); ABG PCO2 (T) 40.9 mmHg (35.0-48.0); ABG PO2 (T) 106.9 mmHg (75.0-100.0); ALLEN'S TEST POSITIVE; FCOHb 0.3 % (0.0-3.9); FMetHb 0.2 % (0.0-1.5); FO2Hb 97.1 % (94-97); PATIENT TEMPERATURE 38.4; PEEP 0 cm H2O; RESPIRATORY RATE 18 b/min; TIDAL VOLUME 425 mL; TOTAL HEMOGLOBIN 10.9 G/dl (14.0-18.0)
[2020-12-05] MEDS: acetaminophen 325mg tablet CORPAK PRN (03:59)
[2020-12-05] MEDS: propofol 1000mg/100ml bottle 100 ML IV SCH ×4 (04:00→21:23)
[2020-12-05] MEDS ORDERED: NORepinephrine 8mg/ 250ml NS 250 ML IV ONE (04:34)
[2020-12-05] MEDS ORDERED: NORepinephrine inj. 32 MG in normal saline 250ml IV soln 218 ML IV SCH (04:40)
[2020-12-05] MEDS: NORepinephrine 8mg/ 250ml NS 250 ML IV PRN ×2 (05:10→23:24)
--- NOTE | 2020-12-05 05:20 | NUR ---
Dr Ramachandran wants FiO2 to remain at 100% and to sedate the pt as well as possible, adding levophed if BP requires. Tube feed disconnected.
--- NOTE | 2020-12-05 06:00 | NUR ---
Patient in room CICU 2010. I have received report from Telma LUKE and had the opportunity to ask questions and assume patient care.
--- NOTE | 2020-12-05 06:32 | NUR ---
Problems reprioritized. Patient report given, questions answered & plan of care reviewed with Dayami LUKE.
[2020-12-05] MEDS ORDERED: normal saline 1000ml 1,000 ML IV ONE (07:40)
--- NOTE | 2020-12-05 07:42 | NUR ---
Dr. Mcnair placed right sided chest tube. Pt tolerated well, no complications seen, chest xray ordered.
[2020-12-05] MEDS: ketamine 10mg/ml 20ml inj 100 MG in normal saline 100ml IV soln 90 ML IV SCH ×2 (07:49→23:47)
[2020-12-05] MEDS: insulin glargine (Lantus) pen - multi-dose SQ SCH ×2 (08:00→20:45)
[2020-12-05] MEDS: docusate sodium 100mg/10ml UD cup CORPAK SCH ×2 (08:00→20:40)
[2020-12-05] MEDS: guaiFENesin/codeine phos 10ml UD oral syrup CORPAK SCH ×3 (08:28→20:41)
[2020-12-05] MEDS: pantoprazole 40 MG vial IV SCH (08:28)
[2020-12-05] MEDS: vitamin B comp w/Vit. C tab 1 TAB TABLET CORPAK SCH (08:28)
[2020-12-05] MEDS: QUEtiapine 25mg tablet PO SCH ×2 (08:28→20:00)
[2020-12-05] MEDS: methylPREDNISolone sod succ/PF 40mg inj. IV SCH (08:28)
[2020-12-05] MEDS: fenofibrate 145mg tablet CORPAK SCH (08:29)
[2020-12-05] MEDS: cholecalciferol (vitamin D3) 1,000 unit (25mcg) tablet CORPAK SCH (08:29)
[2020-12-05] MEDS: atorvastatin 20mg tablet CORPAK SCH (08:29)
[2020-12-05] MEDS: lactobacillus rhamnosus 10,000 MMU CELLS/CAPSULE CORPAK SCH ×2 (08:29→20:40)
[2020-12-05] MEDS: fluconazole-Diflucan 200mg/NS 100 ML IV SCH (08:46)
[2020-12-05] MEDS: enoxaparin 40mg/0.4ml syringe SUBCUT SCH (08:47)
[2020-12-05] MEDS: dextrose 50%-water 50ml dispensing syringe IV PRN (08:52)
--- NOTE | 2020-12-05 10:35 | NUR ---
Shannon at bedside, updated her on pt's condition.
[2020-12-05] MEDS: quetiapine 100mg tablet PO SCH ×2 (10:53→20:41)
[2020-12-05] MEDS: albuterol 2.5 MG/3 ML nebule NEB PRN (15:40)
--- NOTE | 2020-12-05 17:30 | NUR ---
Spoke with Shannon over the phone and gave her update on pts condition.
--- NOTE | 2020-12-05 18:22 | NUR ---
Problems reprioritized. Patient report given, questions answered & plan of care reviewed with Telma LUKE.
--- NOTE | 2020-12-05 18:30 | NUR ---
Patient in room CICU 2010. I have received report from Dayami LUKE and had the opportunity to ask questions and assume patient care.
--- NOTE | 2020-12-05 22:50 | NUR ---
Shannon at bedside from 8pm to 10pm, helped with bath.
[2020-12-06] VITALS (23 sets, daily range): BP systolic 91–141; BP diastolic 48–78
[2020-12-06] MEDS: mineral oil/petrolatum ophthal oint EACHEYE SCH ×4 (02:12→20:00)
[2020-12-06] MEDS: insulin regular, human U-100 3ml vial - multi-dose SQ SCH ×4 (02:18→21:33)
[2020-12-06 02:55] LABS: BASOPHILS % (AUTO) 0.1 % (0-1); EOSINOPHILS # (AUTO) 0.1 X10'3 (0-0.9); EOSINOPHILS % (AUTO) 1.7 % (0-6); HEMATOCRIT 30.1 % (42.0-52.0); HEMOGLOBIN 9.9 g/dl (14.0-17.9); LYMPHOCYTES # (AUTO) 0.5 X10'3 (1.1-4.8); LYMPHOCYTES % (AUTO) 6.3 % (21-51); MEAN CORPUSCULAR HEMOGLOBIN 32.1 PG (27.0-31.0); MEAN CORPUSCULAR HGB CONC 32.9 g/dL (33.0-36.5); MEAN CORPUSCULAR VOLUME 97.4 FL (78-98); MEAN PLATELET VOLUME 7.4 FL (7.4-10.4); MONOCYTES # (AUTO) 0.4 X10'3 (0-0.9); MONOCYTES % (AUTO) 4.9 % (2-12); PLATELET COUNT 150 X10'3 (140-440); RED BLOOD COUNT 3.09 X10'6 (4.70-6.10); RED CELL DISTRIBUTION WIDTH 16.2 % (11.5-14.5)
[2020-12-06 03:12] LABS: ABG BASE EXCESS 3.6 mmol/L (-2.0-2.0); ABG HCO3 27.4 mmol/L (22.0-26.0); ABG OXYGEN SATURATION 92.9 % (94-97); ABG PCO2 (T) 38.3 mmHg (35.0-48.0); ABG PO2 (T) 66.7 mmHg (75.0-100.0); ALLEN'S TEST POSITIVE; FCOHb 0.3 % (0.0-3.9); FMetHb 0.1 % (0.0-1.5); FO2Hb 92.5 % (94-97); PATIENT TEMPERATURE 37.1; RESPIRATORY RATE 18 b/min; TIDAL VOLUME 425 mL; TOTAL HEMOGLOBIN 10.6 G/dl (14.0-18.0)
[2020-12-06] MEDS: propofol 1000mg/100ml bottle 100 ML IV SCH ×4 (03:15→23:38)
[2020-12-06 03:32] LABS: ALANINE AMINOTRANSFERASE 65 U/L (12-78); ALBUMIN 2.2 G/DL (3.4-5.0); ALBUMIN/GLOBULIN RATIO 0.7 (1.1-1.5); ALKALINE PHOSPHATASE 68 IU/L (46-116); ANION GAP 9 (8-16); ASPARTATE AMINO TRANSFERASE 18 U/L (10-37); BILIRUBIN,TOTAL 0.3 MG/DL (0.1-1.0); BLOOD UREA NITROGEN 19 MG/DL (7-18); BUN/CREATININE RATIO 43.2 (5.4-32.0); C-REACTIVE PROTEIN 11.74 MG/DL (0.0-0.5); CALCIUM 7.4 MG/DL (8.5-10.1); CHLORIDE 108 MMOL/L (99-107); CREATININE 0.44 MG/DL (0.60-1.10); GLUCOSE 190 MG/DL (70-104); MAGNESIUM 1.9 MG/DL (1.5-2.4); PHOSPHORUS 2.6 MG/DL (2.3-4.5); POTASSIUM 3.6 MMOL/L (3.5-5.1); SODIUM 145 MMOL/L (135-145); TOTAL PROTEIN 5.4 G/DL (6.4-8.2); eGFR > 90 ML/MIN
[2020-12-06] MEDS: FENTANYL-0.9 % NACL/PF 100 ML IV PRN ×2 (04:59→14:46)
--- NOTE | 2020-12-06 06:31 | NUR ---
Problems reprioritized. Patient report given, questions answered & plan of care reviewed with Eduarda LUKE.
[2020-12-06] MEDS: enoxaparin 40mg/0.4ml syringe SUBCUT SCH (07:33)
[2020-12-06] MEDS: cholecalciferol (vitamin D3) 1,000 unit (25mcg) tablet CORPAK SCH (07:33)
[2020-12-06] MEDS: QUEtiapine 25mg tablet PO SCH (07:34)
[2020-12-06] MEDS: lactobacillus rhamnosus 10,000 MMU CELLS/CAPSULE CORPAK SCH ×2 (07:34→21:16)
[2020-12-06] MEDS: atorvastatin 20mg tablet CORPAK SCH (07:34)
[2020-12-06] MEDS: fluconazole-Diflucan 200mg/NS 100 ML IV SCH (07:34)
[2020-12-06] MEDS: vitamin B comp w/Vit. C tab 1 TAB TABLET CORPAK SCH (07:34)
[2020-12-06] MEDS: pantoprazole 40 MG vial IV SCH (07:35)
[2020-12-06] MEDS: fenofibrate 145mg tablet CORPAK SCH (07:35)
[2020-12-06] MEDS: guaiFENesin/codeine phos 10ml UD oral syrup CORPAK SCH ×3 (07:35→21:17)
[2020-12-06] MEDS: docusate sodium 100mg/10ml UD cup CORPAK SCH ×2 (07:35→21:16)
[2020-12-06] MEDS: methylPREDNISolone sod succ/PF 40mg inj. IV SCH (07:36)
[2020-12-06] MEDS: insulin glargine (Lantus) pen - multi-dose SQ SCH ×2 (08:00→21:35)
[2020-12-06] MEDS: midazolam 100mg in NS 100 ML INFUSION IV PRN ×2 (10:14→18:59)
[2020-12-06] MEDS ORDERED: quetiapine 100mg tablet PO ONE (12:00)
--- NOTE | 2020-12-06 12:41 | NUR ---
F/u: Noted pt started on Propofol, currently running at 21.576 mL/hr providing 570 kcal/day. D/w MD recommendation to adjust TF based on Propofol rate, MD agrees. Recommendations below and EMR have been updated. Rec: 1) Continuous TF using Vital High Protein with goal rate of 70 mL/hr to provide 1680 mL total volume/day, 1680 kcal, 147 g protein, and 1405 mL water. Combined with Propofol at current rate of 21.576 mL/hr will provide 2250 total kcal 2) Monitor Propofol rate and adjust TF recommendations as appropriate. Once off Propofol resume continuous TF using Vital AF with 80 mL/hr goal; to provide 1920 mL volume, 2304 kcal, 1555 mL water, and 144 g protein. 3) Additional 125 mL water flush Q4H; monitor serum Na and adjust as appropriate 4) PALB q /; daily wts 5) Routine bowel care 6) IF to advance to PO diet upon extubation; continue NG feeds until PO intake consistently averages 65% of meals 7) DM education once appropriate following extubation, A1c 8.6% Addendum: 12/06/20 at [address] Amended: Links added.
[2020-12-06] MEDS ORDERED: potassium Cl 20 mEq SR tablet CORPAK PRN (14:05)
[2020-12-06] MEDS: NORepinephrine 8mg/ 250ml NS 250 ML IV PRN (14:48)
[2020-12-06] MEDS: quetiapine 100mg tablet CORPAK SCH (21:16)
[2020-12-07] VITALS (24 sets, daily range): BP systolic 84–150; BP diastolic 41–87
[2020-12-07] MEDS: FENTANYL-0.9 % NACL/PF 100 ML IV PRN ×3 (00:55→18:17)
[2020-12-07] MEDS: mineral oil/petrolatum ophthal oint EACHEYE SCH ×4 (01:38→19:34)
[2020-12-07] MEDS: dextrose 50%-water 50ml dispensing syringe IV PRN (02:23)
[2020-12-07] MEDS: midazolam 100mg in NS 100 ML INFUSION IV PRN ×3 (03:48→22:35)
[2020-12-07 03:49] LABS: ABG BASE EXCESS 4.8 mmol/L (-2.0-2.0); ABG HCO3 28.3 mmol/L (22.0-26.0); ABG OXYGEN SATURATION 89.5 % (94-97); ABG PCO2 (T) 37.5 mmHg (35.0-48.0); ABG PO2 (T) 51.5 mmHg (75.0-100.0); ALLEN'S TEST POSITIVE; FCOHb 0.3 % (0.0-3.9); FMetHb 0.3 % (0.0-1.5); PATIENT TEMPERATURE 36.8; PEEP 5 cm H2O; RESPIRATORY RATE 18 b/min; TIDAL VOLUME 425 mL; TOTAL HEMOGLOBIN 10.3 G/dl (14.0-18.0)
[2020-12-07] MEDS: propofol 1000mg/100ml bottle 100 ML IV SCH ×6 (03:50→22:34)
[2020-12-07 04:58] LABS: BASOPHILS % (AUTO) 0.2 % (0-1); EOSINOPHILS # (AUTO) 0.3 X10'3 (0-0.9); EOSINOPHILS % (AUTO) 4.1 % (0-6); HEMATOCRIT 30.8 % (42.0-52.0); HEMOGLOBIN 10.1 g/dl (14.0-17.9); LYMPHOCYTES # (AUTO) 0.6 X10'3 (1.1-4.8); LYMPHOCYTES % (AUTO) 7.2 % (21-51); MEAN CORPUSCULAR HEMOGLOBIN 32.4 PG (27.0-31.0); MEAN CORPUSCULAR HGB CONC 32.7 g/dL (33.0-36.5); MEAN CORPUSCULAR VOLUME 99.1 FL (78-98); MEAN PLATELET VOLUME 7.3 FL (7.4-10.4); MONOCYTES # (AUTO) 0.5 X10'3 (0-0.9); MONOCYTES % (AUTO) 5.5 % (2-12); NEUTROPHILS # (AUTO) 6.8 X10'3 (1.8-7.7); PLATELET COUNT 150 X10'3 (140-440); RED BLOOD COUNT 3.11 X10'6 (4.70-6.10); RED CELL DISTRIBUTION WIDTH 17.4 % (11.5-14.5); WHITE BLOOD COUNT 8.2 X10'3 (4.5-11.0)
[2020-12-07 05:15] LABS: ALANINE AMINOTRANSFERASE 55 U/L (12-78); ALBUMIN 2.1 G/DL (3.4-5.0); ALBUMIN/GLOBULIN RATIO 0.6 (1.1-1.5); ALKALINE PHOSPHATASE 68 IU/L (46-116); ANION GAP 9 (8-16); ASPARTATE AMINO TRANSFERASE 17 U/L (10-37); BILIRUBIN,TOTAL 0.3 MG/DL (0.1-1.0); BLOOD UREA NITROGEN 19 MG/DL (7-18); BUN/CREATININE RATIO 44.2 (5.4-32.0); C-REACTIVE PROTEIN 8.56 MG/DL (0.0-0.5); CALCIUM 7.6 MG/DL (8.5-10.1); CHLORIDE 108 MMOL/L (99-107); CREATININE 0.43 MG/DL (0.60-1.10); GLUCOSE 114 MG/DL (70-104); MAGNESIUM 1.9 MG/DL (1.5-2.4); PHOSPHORUS 3.1 MG/DL (2.3-4.5); POTASSIUM 3.3 MMOL/L (3.5-5.1); PREALBUMIN 17.2 MG/DL (19-36); SODIUM 145 MMOL/L (135-145); TOTAL CARBON DIOXIDE 27.8 MMOL/L (24-32); TOTAL PROTEIN 5.4 G/DL (6.4-8.2); TRIGLYCERIDES 105 MG/DL (20-135); eGFR > 90 ML/MIN
--- NOTE | 2020-12-07 06:30 | NUR ---
Patient in room CICU 2010. I have received report from Mj LUKE and had the opportunity to ask questions and assume patient care.
[2020-12-07] MEDS: docusate sodium 100mg/10ml UD cup CORPAK SCH ×2 (08:47→19:34)
[2020-12-07] MEDS: methylPREDNISolone sod succ/PF 40mg inj. IV SCH (08:47)
[2020-12-07] MEDS: guaiFENesin/codeine phos 10ml UD oral syrup CORPAK SCH ×3 (08:47→19:35)
[2020-12-07] MEDS: pantoprazole 40 MG vial IV SCH (08:47)
[2020-12-07] MEDS: quetiapine 100mg tablet CORPAK SCH ×2 (08:48→19:34)
[2020-12-07] MEDS: lactobacillus rhamnosus 10,000 MMU CELLS/CAPSULE CORPAK SCH ×2 (08:48→19:34)
[2020-12-07] MEDS: cholecalciferol (vitamin D3) 1,000 unit (25mcg) tablet CORPAK SCH (08:48)
[2020-12-07] MEDS: atorvastatin 20mg tablet CORPAK SCH (08:48)
[2020-12-07] MEDS: fenofibrate 145mg tablet CORPAK SCH (08:48)
[2020-12-07] MEDS: vitamin B comp w/Vit. C tab 1 TAB TABLET CORPAK SCH (08:48)
[2020-12-07] MEDS: enoxaparin 40mg/0.4ml syringe SUBCUT SCH (08:49)
[2020-12-07] MEDS: NORepinephrine 8mg/ 250ml NS 250 ML IV PRN ×2 (08:51→13:30)
[2020-12-07] MEDS ORDERED: amiodarone 150mg/dext, iso-os 100 ML IV ONE (09:30)
[2020-12-07] MEDS ORDERED: PERFLUTREN PROTEIN-A MICROSPHR (Optison) 0.22 MG/ML 3ML VIAL IV ONE (09:30)
[2020-12-07] MEDS: amiodarone/D5 360MG/200ML BAG 200 ML IV SCH ×3 (10:03→21:38)
[2020-12-07] MEDS: albuterol 2.5 MG/3 ML nebule NEB PRN (10:14)
[2020-12-07] MEDS: insulin regular, human U-100 3ml vial - multi-dose SQ SCH ×3 (10:21→19:54)
[2020-12-07] MEDS: insulin glargine (Lantus) pen - multi-dose SQ SCH ×2 (10:22→19:55)
[2020-12-07] MEDS: fluconazole-Diflucan 200mg/NS 100 ML IV SCH (10:37)
[2020-12-07] MEDS ORDERED: VANCOmycin 1250MG/NS 250ml Bag 250 ML IV SCH (11:00)
--- NOTE | 2020-12-07 11:00 | NUR ---
Patient's temp increased to 38.6. Suctioned for copious thick, creamy/partida secretions. Dr. Antunez and Dr. Russo notified. Sputum and blood cultures done. New ABX orders received. Tachycardic and rhythm changed to atrial flutter with RVR. Patient bolused wtih Amiodarone and gtt started. Troponin sent and echocardiogram done.
[2020-12-07] MEDS ORDERED: acetaminophen 325mg/10.15ml oral unit dose solution CORPAK PRN (11:50)
[2020-12-07] MEDS: cefepime 2g/NS 100ml ADVANTAGE 100 ML IV SCH ×2 (11:59→16:14)
--- NOTE | 2020-12-07 12:02 | NUR ---
Reassessment: Pt remains intubated and receiving Vital AF at 80 mL/hr despite new TF order for Vital High Protein at 70 mL/hr. F/u with RN regarding TF diet order as pt continues on Propofol at 21.576 mL/hr providing 570 kcal/day. LBM 12/05, receiving routine bowel care. Will continue to follow closely and make recommendations as appropriate. Rec: 1) Continuous TF using Vital High Protein with goal rate of 70 mL/hr to provide 1680 mL total volume/day, 1680 kcal, 147 g protein, and 1405 mL water. Combined with Propofol at current rate of 21.576 mL/hr will provide 2250 total kcal 2) Monitor Propofol rate and adjust TF recommendations as appropriate. Once off Propofol resume continuous TF using Vital AF with 80 mL/hr goal; to provide 1920 mL volume, 2304 kcal, 1555 mL water, and 144 g protein. 3) Additional 125 mL water flush Q4H; monitor serum Na and adjust as appropriate 4) PALB q /; daily wts 5) Routine bowel care 6) IF to advance to PO diet upon extubation; continue NG feeds until PO intake consistently averages 65% of meals 7) DM education once appropriate following extubation, A1c 8.6% Addendum: 12/07/20 at [address] Amended: Links added.
[2020-12-07] MEDS: VANCOmycin 1250MG/NS 250ml Bag 250 ML IV SCH ×2 (12:05→19:30)
[2020-12-07] MEDS: acetaminophen 325mg/10.15ml oral unit dose solution CORPAK PRN (12:06)
[2020-12-07] MEDS: potassium Cl 40MEQ/250ML bag 250 ML IV PRN (14:02)
[2020-12-07] MEDS: piperacillin/tazobactam inj. 3.375 GM in NS 50ml IV SCH (16:14)
--- NOTE | 2020-12-07 17:00 | NUR ---
Temp decreased through shift to 37.3. Patient converted back to SR with HR decreased 60-70's. Quantity of secretions lessened through day. Incontinent of liquid stool. Lisa area reddened with open excoriated area on coccyx. Calazime cream applied liberally and hydrophyllic dressing to coccyx.
--- NOTE | 2020-12-07 18:54 | NUR ---
Problems reprioritized. Patient report given, questions answered & plan of care reviewed with jM LUKE.
[2020-12-08] VITALS (22 sets, daily range): BP systolic 92–157; BP diastolic 46–78
[2020-12-08] MEDS: cefepime 2g/NS 100ml ADVANTAGE 100 ML IV SCH ×2 (00:15→09:16)
[2020-12-08] MEDS: piperacillin/tazobactam inj. 3.375 GM in NS 50ml IV SCH ×2 (00:16→09:40)
[2020-12-08] MEDS: mineral oil/petrolatum ophthal oint EACHEYE SCH ×4 (02:09→20:32)
[2020-12-08] MEDS: VANCOmycin 1250MG/NS 250ml Bag 250 ML IV SCH ×3 (02:09→19:11)
[2020-12-08 02:41] LABS: ABG BASE EXCESS 3.8 mmol/L (-2.0-2.0); ABG OXYGEN SATURATION 96.4 % (94-97); ABG PCO2 (T) 39.8 mmHg (35.0-48.0); ALLEN'S TEST POSITIVE; FCOHb 0.3 % (0.0-3.9); FMetHb 0.1 % (0.0-1.5); PATIENT TEMPERATURE 36.4; PEEP 5 cm H2O; TOTAL HEMOGLOBIN 9.9 G/dl (14.0-18.0)
[2020-12-08 02:55] LABS: BASOPHILS % (AUTO) 0.4 % (0-1); EOSINOPHILS # (AUTO) 0.2 X10'3 (0-0.9); HEMATOCRIT 28.8 % (42.0-52.0); HEMOGLOBIN 9.4 g/dl (14.0-17.9); LYMPHOCYTES # (AUTO) 0.5 X10'3 (1.1-4.8); LYMPHOCYTES % (AUTO) 11.1 % (21-51); MEAN CORPUSCULAR HEMOGLOBIN 32.3 PG (27.0-31.0); MEAN CORPUSCULAR HGB CONC 32.5 g/dL (33.0-36.5); MEAN CORPUSCULAR VOLUME 99.4 FL (78-98); MEAN PLATELET VOLUME 6.9 FL (7.4-10.4); MONOCYTES # (AUTO) 0.2 X10'3 (0-0.9); MONOCYTES % (AUTO) 4.8 % (2-12); NEUTROPHILS # (AUTO) 3.2 X10'3 (1.8-7.7); NEUTROPHILS % (AUTO) 77.7 % (42-75); PLATELET COUNT 133 X10'3 (140-440); WHITE BLOOD COUNT 4.2 X10'3 (4.5-11.0)
[2020-12-08 03:13] LABS: ALANINE AMINOTRANSFERASE 50 U/L (12-78); ALBUMIN 1.8 G/DL (3.4-5.0); ALBUMIN/GLOBULIN RATIO 0.5 (1.1-1.5); ALKALINE PHOSPHATASE 64 IU/L (46-116); ANION GAP 9 (8-16); ASPARTATE AMINO TRANSFERASE 17 U/L (10-37); BILIRUBIN,TOTAL 0.3 MG/DL (0.1-1.0); BLOOD UREA NITROGEN 15 MG/DL (7-18); BUN/CREATININE RATIO 34.9 (5.4-32.0); C-REACTIVE PROTEIN 9.96 MG/DL (0.0-0.5); CALCIUM 7.4 MG/DL (8.5-10.1); CHLORIDE 111 MMOL/L (99-107); CREATININE 0.43 MG/DL (0.60-1.10); GLUCOSE 137 MG/DL (70-104); MAGNESIUM 1.9 MG/DL (1.5-2.4); POTASSIUM 3.6 MMOL/L (3.5-5.1); SODIUM 147 MMOL/L (135-145); TOTAL CARBON DIOXIDE 27.1 MMOL/L (24-32); TOTAL PROTEIN 5.2 G/DL (6.4-8.2); TRIGLYCERIDES 112 MG/DL (20-135); eGFR > 90 ML/MIN
[2020-12-08] MEDS: insulin regular, human U-100 3ml vial - multi-dose SQ SCH ×2 (03:15→21:00)
[2020-12-08] MEDS: FENTANYL-0.9 % NACL/PF 100 ML IV PRN ×3 (04:34→23:32)
[2020-12-08] MEDS: amiodarone/D5 360MG/200ML BAG 200 ML IV SCH (07:01)
[2020-12-08] MEDS: NORepinephrine 8mg/ 250ml NS 250 ML IV PRN (08:59)
[2020-12-08] MEDS: insulin glargine (Lantus) pen - multi-dose SQ SCH ×2 (09:04→21:02)
[2020-12-08] MEDS: propofol 1000mg/100ml bottle 100 ML IV SCH ×3 (09:13→23:32)
[2020-12-08] MEDS: methylPREDNISolone sod succ/PF 40mg inj. IV SCH (09:13)
[2020-12-08] MEDS: enoxaparin 40mg/0.4ml syringe SUBCUT SCH (09:14)
[2020-12-08] MEDS: docusate sodium 100mg/10ml UD cup CORPAK SCH ×2 (09:14→20:30)
[2020-12-08] MEDS: lactobacillus rhamnosus 10,000 MMU CELLS/CAPSULE CORPAK SCH ×2 (09:14→20:31)
[2020-12-08] MEDS: pantoprazole 40 MG vial IV SCH (09:14)
[2020-12-08] MEDS: guaiFENesin/codeine phos 10ml UD oral syrup CORPAK SCH ×3 (09:14→20:31)
[2020-12-08] MEDS: atorvastatin 20mg tablet CORPAK SCH (09:15)
[2020-12-08] MEDS: quetiapine 100mg tablet CORPAK SCH ×2 (09:15→20:31)
[2020-12-08] MEDS: cholecalciferol (vitamin D3) 1,000 unit (25mcg) tablet CORPAK SCH (09:15)
[2020-12-08] MEDS: fenofibrate 145mg tablet CORPAK SCH (09:15)
[2020-12-08] MEDS: vitamin B comp w/Vit. C tab 1 TAB TABLET CORPAK SCH (09:15)
[2020-12-08] MEDS: fluconazole-Diflucan 200mg/NS 100 ML IV SCH (09:16)
[2020-12-08] MEDS ORDERED: amiodarone 150mg/dext, iso-os 100 ML IV ONE ×2 (10:28→10:30)
[2020-12-08] MEDS ORDERED: VANCOMYCIN LEVEL IV ONE (10:30)
[2020-12-08] MEDS: midazolam 100mg in NS 100 ML INFUSION IV PRN ×2 (10:46→23:27)
[2020-12-08] MEDS ORDERED: amiodarone/D5 360MG/200ML BAG 200 ML IV ONE (16:52)
[2020-12-09] VITALS (23 sets, daily range): BP systolic 84–159; BP diastolic 44–92
[2020-12-09] MEDS: mineral oil/petrolatum ophthal oint EACHEYE SCH ×4 (02:00→20:10)
[2020-12-09] MEDS ORDERED: VANCOMYCIN LEVEL IV ONE (02:30)
[2020-12-09 02:32] LABS: ALANINE AMINOTRANSFERASE 52 U/L (12-78); ALBUMIN 2.1 G/DL (3.4-5.0); ALBUMIN/GLOBULIN RATIO 0.5 (1.1-1.5); ALKALINE PHOSPHATASE 90 IU/L (46-116); ANION GAP 4 (8-16); ASPARTATE AMINO TRANSFERASE 20 U/L (10-37); BASOPHILS % (AUTO) 0.4 % (0-1); BILIRUBIN,TOTAL 0.3 MG/DL (0.1-1.0); BLOOD UREA NITROGEN 14 MG/DL (7-18); BUN/CREATININE RATIO 29.2 (5.4-32.0); CALCIUM 7.8 MG/DL (8.5-10.1); CHLORIDE 107 MMOL/L (99-107); CREATININE 0.48 MG/DL (0.60-1.10); EOSINOPHILS # (AUTO) 0.3 X10'3 (0-0.9); EOSINOPHILS % (AUTO) 5.2 % (0-6); GLUCOSE 185 MG/DL (70-104); HEMATOCRIT 31.8 % (42.0-52.0); HEMOGLOBIN 10.5 g/dl (14.0-17.9); LYMPHOCYTES % (AUTO) 18.6 % (21-51); MEAN CORPUSCULAR HEMOGLOBIN 32.1 PG (27.0-31.0); MEAN CORPUSCULAR VOLUME 97.3 FL (78-98); MEAN PLATELET VOLUME 7.3 FL (7.4-10.4); MONOCYTES # (AUTO) 0.4 X10'3 (0-0.9); MONOCYTES % (AUTO) 6.7 % (2-12); NEUTROPHILS # (AUTO) 3.7 X10'3 (1.8-7.7); NEUTROPHILS % (AUTO) 69.1 % (42-75); PLATELET COUNT 173 X10'3 (140-440); POTASSIUM 3.7 MMOL/L (3.5-5.1); RED BLOOD COUNT 3.27 X10'6 (4.70-6.10); SODIUM 142 MMOL/L (135-145); TOTAL CARBON DIOXIDE 31.2 MMOL/L (24-32); WHITE BLOOD COUNT 5.4 X10'3 (4.5-11.0); eGFR > 90 ML/MIN
[2020-12-09 02:33] LABS: MAGNESIUM 1.8 MG/DL (1.5-2.4); VANCOMYCIN,TROUGH 19.1 UG/ML (6.0-14.0)
[2020-12-09 02:56] LABS: ABG HCO3 30.7 mmol/L (22.0-26.0); ABG OXYGEN SATURATION 95.1 % (94-97); ABG PCO2 (T) 39.7 mmHg (35.0-48.0); ABG PO2 (T) 70.6 mmHg (75.0-100.0); ALLEN'S TEST POSITIVE; FCOHb 0.3 % (0.0-3.9); FMetHb 0.3 % (0.0-1.5); FO2Hb 94.5 % (94-97); PATIENT TEMPERATURE 36.8; PEEP 6 cm H2O; RESPIRATORY RATE 18 b/min; TIDAL VOLUME 425 mL
[2020-12-09] MEDS: VANCOmycin 1250MG/NS 250ml Bag 250 ML IV SCH ×3 (03:06→19:31)
[2020-12-09] MEDS: NORepinephrine 8mg/ 250ml NS 250 ML IV PRN ×2 (03:07→16:11)
[2020-12-09] MEDS: insulin regular, human U-100 3ml vial - multi-dose SQ SCH ×2 (03:13→20:37)
[2020-12-09] MEDS: propofol 1000mg/100ml bottle 100 ML IV SCH ×3 (06:12→19:57)
[2020-12-09] MEDS ORDERED: amiodarone/D5 360MG/200ML BAG 200 ML IV ONE (08:11)
[2020-12-09] MEDS: quetiapine 100mg tablet CORPAK SCH ×2 (09:42→20:10)
[2020-12-09] MEDS: methylPREDNISolone sod succ/PF 40mg inj. IV SCH (09:42)
[2020-12-09] MEDS: docusate sodium 100mg/10ml UD cup CORPAK SCH ×2 (09:43→20:09)
[2020-12-09] MEDS: enoxaparin 40mg/0.4ml syringe SUBCUT SCH (09:43)
[2020-12-09] MEDS: vitamin B comp w/Vit. C tab 1 TAB TABLET CORPAK SCH (09:43)
[2020-12-09] MEDS: guaiFENesin/codeine phos 10ml UD oral syrup CORPAK SCH ×3 (09:43→20:28)
[2020-12-09] MEDS: pantoprazole 40 MG vial IV SCH (09:44)
[2020-12-09] MEDS: atorvastatin 20mg tablet CORPAK SCH (09:45)
[2020-12-09] MEDS: lactobacillus rhamnosus 10,000 MMU CELLS/CAPSULE CORPAK SCH ×2 (09:45→20:10)
[2020-12-09] MEDS: cholecalciferol (vitamin D3) 1,000 unit (25mcg) tablet CORPAK SCH (09:45)
[2020-12-09] MEDS: fenofibrate 145mg tablet CORPAK SCH (09:45)
[2020-12-09] MEDS: insulin glargine (Lantus) pen - multi-dose SQ SCH ×2 (10:24→20:36)
[2020-12-09] MEDS: midazolam 100mg in NS 100 ML INFUSION IV PRN (12:43)
[2020-12-09] MEDS: amiodarone/D5 360MG/200ML BAG 200 ML IV SCH ×2 (15:25→19:57)
--- NOTE | 2020-12-09 17:39 | NUR ---
Pt making noise from ET tube, checked cuff pressure ok. Tube at 21cm at teeth should be 24cm. Respiratory caled with no response. Resp paged. Dr. Vasquez assessed pt.
--- NOTE | 2020-12-09 18:30 | NUR ---
Patient in room CICU 2010. I have received report from Ruben LUKE and had the opportunity to ask questions and assume patient care.
[2020-12-09] MEDS: FENTANYL-0.9 % NACL/PF 100 ML IV PRN (19:56)
[2020-12-10] VITALS (24 sets, daily range): BP systolic 79–135; BP diastolic 38–74
[2020-12-10] MEDS: propofol 1000mg/100ml bottle 100 ML IV SCH ×5 (00:11→19:35)
[2020-12-10] MEDS: midazolam 100mg in NS 100 ML INFUSION IV PRN ×2 (00:12→13:39)
[2020-12-10] MEDS: mineral oil/petrolatum ophthal oint EACHEYE SCH ×4 (02:27→19:34)
[2020-12-10] MEDS: insulin regular, human U-100 3ml vial - multi-dose SQ SCH ×3 (02:30→19:36)
[2020-12-10] MEDS: VANCOmycin 1250MG/NS 250ml Bag 250 ML IV SCH ×3 (02:58→19:07)
[2020-12-10 03:23] LABS: BASOPHILS % (AUTO) 0.2 % (0-1); EOSINOPHILS # (AUTO) 0.3 X10'3 (0-0.9); EOSINOPHILS % (AUTO) 6.5 % (0-6); HEMATOCRIT 30.2 % (42.0-52.0); HEMOGLOBIN 9.8 g/dl (14.0-17.9); LYMPHOCYTES # (AUTO) 0.8 X10'3 (1.1-4.8); LYMPHOCYTES % (AUTO) 16.2 % (21-51); MEAN CORPUSCULAR HGB CONC 32.5 g/dL (33.0-36.5); MEAN CORPUSCULAR VOLUME 98.4 FL (78-98); MEAN PLATELET VOLUME 6.9 FL (7.4-10.4); MONOCYTES # (AUTO) 0.3 X10'3 (0-0.9); MONOCYTES % (AUTO) 6.1 % (2-12); NEUTROPHILS # (AUTO) 3.6 X10'3 (1.8-7.7); PLATELET COUNT 171 X10'3 (140-440); RED BLOOD COUNT 3.07 X10'6 (4.70-6.10); RED CELL DISTRIBUTION WIDTH 17.4 % (11.5-14.5); WHITE BLOOD COUNT 5.1 X10'3 (4.5-11.0)
[2020-12-10 03:37] LABS: ALANINE AMINOTRANSFERASE 57 U/L (12-78); ALBUMIN 1.8 G/DL (3.4-5.0); ALBUMIN/GLOBULIN RATIO 0.5 (1.1-1.5); ALKALINE PHOSPHATASE 59 IU/L (46-116); ANION GAP 8 (8-16); ASPARTATE AMINO TRANSFERASE 27 U/L (10-37); BILIRUBIN,TOTAL 0.2 MG/DL (0.1-1.0); BLOOD UREA NITROGEN 11 MG/DL (7-18); BUN/CREATININE RATIO 32.4 (5.4-32.0); C-REACTIVE PROTEIN 5.03 MG/DL (0.0-0.5); CALCIUM 7.7 MG/DL (8.5-10.1); CHLORIDE 106 MMOL/L (99-107); CREATININE 0.34 MG/DL (0.60-1.10); GLUCOSE 99 MG/DL (70-104); MAGNESIUM 1.8 MG/DL (1.5-2.4); PHOSPHORUS 2.8 MG/DL (2.3-4.5); POTASSIUM 3.2 MMOL/L (3.5-5.1); SODIUM 143 MMOL/L (135-145); TOTAL CARBON DIOXIDE 29.1 MMOL/L (24-32); TOTAL PROTEIN 5.7 G/DL (6.4-8.2); eGFR > 90 ML/MIN
[2020-12-10 04:19] LABS: ABG BASE EXCESS 6.1 mmol/L (-2.0-2.0); ABG HCO3 30.6 mmol/L (22.0-26.0); ABG OXYGEN SATURATION 96.9 % (94-97); ABG PCO2 (T) 45.4 mmHg (35.0-48.0); ABG PO2 (T) 93.3 mmHg (75.0-100.0); ALLEN'S TEST Modified; FCOHb 0.3 % (0.0-3.9); FMetHb 0.3 % (0.0-1.5); FO2Hb 96.3 % (94-97); PATIENT TEMPERATURE 37.6; PEEP 6 cm H2O; RESPIRATORY RATE 18 b/min; TIDAL VOLUME 425 mL
[2020-12-10] MEDS: FENTANYL-0.9 % NACL/PF 100 ML IV PRN ×3 (05:05→23:07)
--- NOTE | 2020-12-10 06:30 | NUR ---
Report received from MARLY Hollis
--- NOTE | 2020-12-10 06:42 | NUR ---
Patient in room [facility] 2010. I have received report from Shira LUKE and had the opportunity to ask questions and assume patient care. Addendum: 12/10/20 at 0645 by Telma Farrell RN Oookaushik! Gave Report. Problems reprioritized. Patient report given, questions answered & plan of care reviewed with Shira LUKE.
[2020-12-10] MEDS: insulin glargine (Lantus) pen - multi-dose SQ SCH ×2 (08:00→19:37)
[2020-12-10] MEDS: guaiFENesin/codeine phos 10ml UD oral syrup CORPAK SCH ×3 (08:25→19:34)
[2020-12-10] MEDS: docusate sodium 100mg/10ml UD cup CORPAK SCH ×2 (08:25→19:34)
[2020-12-10] MEDS: methylPREDNISolone sod succ/PF 40mg inj. IV SCH (08:26)
[2020-12-10] MEDS: vitamin B comp w/Vit. C tab 1 TAB TABLET CORPAK SCH (08:26)
[2020-12-10] MEDS: enoxaparin 40mg/0.4ml syringe SUBCUT SCH (08:26)
[2020-12-10] MEDS: pantoprazole 40 MG vial IV SCH (08:26)
[2020-12-10] MEDS: lactobacillus rhamnosus 10,000 MMU CELLS/CAPSULE CORPAK SCH ×2 (08:26→19:34)
[2020-12-10] MEDS: cholecalciferol (vitamin D3) 1,000 unit (25mcg) tablet CORPAK SCH (08:26)
[2020-12-10] MEDS: atorvastatin 20mg tablet CORPAK SCH (08:26)
[2020-12-10] MEDS: quetiapine 100mg tablet CORPAK SCH ×2 (08:27→19:34)
[2020-12-10] MEDS: fenofibrate 145mg tablet CORPAK SCH (08:27)
[2020-12-10] MEDS: dextrose 50%-water 50ml dispensing syringe IV PRN (08:33)
[2020-12-10] MEDS: amiodarone/D5 360MG/200ML BAG 200 ML IV SCH ×4 (08:37→20:25)
[2020-12-10] MEDS: NORepinephrine 8mg/ 250ml NS 250 ML IV PRN (08:38)
--- NOTE | 2020-12-10 08:40 | NUR ---
Reassessment: Pt remains intubated and sedated, Propofol at 21.576 mL/hr providing 570 kcal/day. EN continues to run at goal of Vital HP at 70ml/hr. LBM 12/05, receiving routine bowel care. Will continue to follow closely and make recommendations as appropriate. Rec: 1) Continuous TF using Vital High Protein with goal rate of 70 mL/hr to provide 1680 mL total volume/day, 1680 kcal, 147 g protein, and 1405 mL water. Combined with Propofol at current rate of 21.576 mL/hr will provide 2250 total kcal 2) Monitor Propofol rate and adjust TF recommendations as appropriate. Once off Propofol resume continuous TF using Vital AF with 80 mL/hr goal; to provide 1920 mL volume, 2304 kcal, 1555 mL water, and 144 g protein. 3) Additional 125 mL water flush Q4H; monitor serum Na and adjust as appropriate 4) PALB q /; daily wts 5) Routine bowel care 6) IF to advance to PO diet upon extubation; continue NG feeds until PO intake consistently averages 65% of meals 7) DM education once appropriate following extubation, A1c 8.6% Addendum: 12/10/20 at [address] Amended: Links added.
--- NOTE | 2020-12-10 18:20 | NUR ---
Report given to MARLY morales
--- NOTE | 2020-12-10 18:30 | NUR ---
Patient in room CICU 2010. I have received report from Shira LUKE and had the opportunity to ask questions and assume patient care.
[2020-12-10] MEDS: albuterol 2.5 MG/3 ML nebule NEB PRN ×2 (19:03→22:59)
[2020-12-11] VITALS (25 sets, daily range): BP systolic 80–171; BP diastolic 41–104
[2020-12-11] MEDS: propofol 1000mg/100ml bottle 100 ML IV SCH ×4 (00:34→21:06)
[2020-12-11] MEDS: mineral oil/petrolatum ophthal oint EACHEYE SCH ×4 (02:20→21:22)
[2020-12-11] MEDS: insulin regular, human U-100 3ml vial - multi-dose SQ SCH ×2 (02:21→22:20)
[2020-12-11] MEDS: albuterol 2.5 MG/3 ML nebule NEB PRN (02:56)
[2020-12-11 03:09] LABS: BASOPHILS % (AUTO) 0.4 % (0-1); EOSINOPHILS # (AUTO) 0.3 X10'3 (0-0.9); EOSINOPHILS % (AUTO) 6.2 % (0-6); HEMATOCRIT 29.7 % (42.0-52.0); HEMOGLOBIN 9.7 g/dl (14.0-17.9); LYMPHOCYTES # (AUTO) 0.9 X10'3 (1.1-4.8); LYMPHOCYTES % (AUTO) 17.1 % (21-51); MEAN CORPUSCULAR HEMOGLOBIN 32.1 PG (27.0-31.0); MEAN CORPUSCULAR HGB CONC 32.8 g/dL (33.0-36.5); MEAN CORPUSCULAR VOLUME 97.8 FL (78-98); MONOCYTES # (AUTO) 0.3 X10'3 (0-0.9); NEUTROPHILS # (AUTO) 3.6 X10'3 (1.8-7.7); NEUTROPHILS % (AUTO) 70.3 % (42-75); PLATELET COUNT 194 X10'3 (140-440); RED BLOOD COUNT 3.03 X10'6 (4.70-6.10); RED CELL DISTRIBUTION WIDTH 17.3 % (11.5-14.5); WHITE BLOOD COUNT 5.1 X10'3 (4.5-11.0)
[2020-12-11 03:17] LABS: ABG BASE EXCESS 8.9 mmol/L (-2.0-2.0); ABG OXYGEN SATURATION 97.2 % (94-97); ABG PCO2 (T) 50.1 mmHg (35.0-48.0); ABG PO2 (T) 97.2 mmHg (75.0-100.0); ALLEN'S TEST Modified; FCOHb 0.3 % (0.0-3.9); FMetHb 0.3 % (0.0-1.5); FO2Hb 96.6 % (94-97); PATIENT TEMPERATURE 37.4; PEEP 6 cm H2O; RESPIRATORY RATE 18 b/min; TIDAL VOLUME 425 mL; TOTAL HEMOGLOBIN 10.6 G/dl (14.0-18.0)
[2020-12-11] MEDS: VANCOmycin 1250MG/NS 250ml Bag 250 ML IV SCH ×3 (03:19→21:11)
[2020-12-11] MEDS: NORepinephrine 8mg/ 250ml NS 250 ML IV PRN (03:24)
[2020-12-11] MEDS: midazolam 100mg in NS 100 ML INFUSION IV PRN (03:30)
[2020-12-11] MEDS: amiodarone/D5 360MG/200ML BAG 200 ML IV SCH ×4 (03:49→22:41)
[2020-12-11 04:07] LABS: ALANINE AMINOTRANSFERASE 59 U/L (12-78); ALBUMIN 1.9 G/DL (3.4-5.0); ALBUMIN/GLOBULIN RATIO 0.5 (1.1-1.5); ALKALINE PHOSPHATASE 57 IU/L (46-116); ANION GAP 7 (8-16); ASPARTATE AMINO TRANSFERASE 25 U/L (10-37); BILIRUBIN,TOTAL 0.2 MG/DL (0.1-1.0); BLOOD UREA NITROGEN 11 MG/DL (7-18); BUN/CREATININE RATIO 29.7 (5.4-32.0); CALCIUM 7.6 MG/DL (8.5-10.1); CHLORIDE 106 MMOL/L (99-107); CREATININE 0.37 MG/DL (0.60-1.10); GLUCOSE 101 MG/DL (70-104); MAGNESIUM 1.8 MG/DL (1.5-2.4); PHOSPHORUS 3.2 MG/DL (2.3-4.5); POTASSIUM 3.3 MMOL/L (3.5-5.1); SODIUM 145 MMOL/L (135-145); TOTAL CARBON DIOXIDE 32.3 MMOL/L (24-32); TOTAL PROTEIN 5.8 G/DL (6.4-8.2); eGFR > 90 ML/MIN
--- NOTE | 2020-12-11 06:25 | NUR ---
Problems reprioritized. Patient report given, questions answered & plan of care reviewed with Shira LUKE.
--- NOTE | 2020-12-11 06:40 | NUR ---
Received report from MARLY morales
[2020-12-11] MEDS: enoxaparin 40mg/0.4ml syringe SUBCUT SCH (08:00)
[2020-12-11] MEDS: insulin glargine (Lantus) pen - multi-dose SQ SCH ×2 (08:00→22:22)
[2020-12-11] MEDS: dextrose 50%-water 50ml dispensing syringe IV PRN ×2 (09:17→15:06)
[2020-12-11] MEDS: docusate sodium 100mg/10ml UD cup CORPAK SCH ×2 (09:20→21:12)
[2020-12-11] MEDS: pantoprazole 40 MG vial IV SCH (09:20)
[2020-12-11] MEDS: quetiapine 100mg tablet CORPAK SCH ×2 (09:20→21:11)
[2020-12-11] MEDS: lactobacillus rhamnosus 10,000 MMU CELLS/CAPSULE CORPAK SCH ×2 (09:20→21:11)
[2020-12-11] MEDS: fenofibrate 145mg tablet CORPAK SCH (09:21)
[2020-12-11] MEDS: atorvastatin 20mg tablet CORPAK SCH (09:21)
[2020-12-11] MEDS: vitamin B comp w/Vit. C tab 1 TAB TABLET CORPAK SCH (09:21)
[2020-12-11] MEDS: cholecalciferol (vitamin D3) 1,000 unit (25mcg) tablet CORPAK SCH (09:21)
[2020-12-11] MEDS: methylPREDNISolone sod succ/PF 40mg inj. IV SCH (09:22)
[2020-12-11] MEDS: guaiFENesin/codeine phos 10ml UD oral syrup CORPAK SCH ×3 (09:22→21:10)
[2020-12-11] MEDS: FENTANYL-0.9 % NACL/PF 100 ML IV PRN ×2 (09:23→17:03)
[2020-12-11] MEDS: potassium Cl 40MEQ/250ML bag 250 ML IV PRN (09:23)
--- NOTE | 2020-12-11 18:30 | NUR ---
Patient in room CICU 2010. I have received report from Shira LUKE and had the opportunity to ask questions and assume patient care.
--- NOTE | 2020-12-11 18:44 | NUR ---
Report given to MARLY Koch
[2020-12-11] MEDS: acetaminophen 325mg/10.15ml oral unit dose solution CORPAK PRN (21:10)
[2020-12-12] VITALS (24 sets, daily range): BP systolic 99–167; BP diastolic 48–95
[2020-12-12] MEDS: propofol 1000mg/100ml bottle 100 ML IV SCH ×6 (01:03→20:14)
[2020-12-12] MEDS: mineral oil/petrolatum ophthal oint EACHEYE SCH ×4 (02:00→19:30)
[2020-12-12 03:17] LABS: ABG BASE EXCESS 4.2 mmol/L (-2.0-2.0); ABG HCO3 27.6 mmol/L (22.0-26.0); ABG OXYGEN SATURATION 96.4 % (94-97); ABG PCO2 (T) 38.4 mmHg (35.0-48.0); ABG PO2 (T) 90.5 mmHg (75.0-100.0); ALLEN'S TEST Modified; FCOHb 0.3 % (0.0-3.9); FMetHb 0.4 % (0.0-1.5); FO2Hb 95.7 % (94-97); PATIENT TEMPERATURE 38.2; PEEP 6 cm H2O; RESPIRATORY RATE 18 b/min; TIDAL VOLUME 425 mL; TOTAL HEMOGLOBIN 10.8 G/dl (14.0-18.0)
[2020-12-12 03:45] LABS: BASOPHILS % (AUTO) 0.3 % (0-1); EOSINOPHILS # (AUTO) 0.2 X10'3 (0-0.9); EOSINOPHILS % (AUTO) 3.4 % (0-6); HEMATOCRIT 29.6 % (42.0-52.0); HEMOGLOBIN 9.9 g/dl (14.0-17.9); MEAN CORPUSCULAR HEMOGLOBIN 32.2 PG (27.0-31.0); MEAN CORPUSCULAR HGB CONC 33.6 g/dL (33.0-36.5); MEAN CORPUSCULAR VOLUME 95.9 FL (78-98); MEAN PLATELET VOLUME 7.8 FL (7.4-10.4); MONOCYTES # (AUTO) 0.3 X10'3 (0-0.9); MONOCYTES % (AUTO) 3.9 % (2-12); NEUTROPHILS # (AUTO) 4.9 X10'3 (1.8-7.7); NEUTROPHILS % (AUTO) 76.4 % (42-75); PLATELET COUNT 219 X10'3 (140-440); RED BLOOD COUNT 3.09 X10'6 (4.70-6.10); RED CELL DISTRIBUTION WIDTH 17.1 % (11.5-14.5); WHITE BLOOD COUNT 6.4 X10'3 (4.5-11.0)
[2020-12-12] MEDS: insulin regular, human U-100 3ml vial - multi-dose SQ SCH ×4 (03:58→20:06)
[2020-12-12] MEDS: amiodarone/D5 360MG/200ML BAG 200 ML IV SCH ×4 (04:05→20:13)
[2020-12-12 04:06] LABS: ANION GAP 10 (8-16); BLOOD UREA NITROGEN 9 MG/DL (7-18); CHLORIDE 104 MMOL/L (99-107); CREATININE 0.47 MG/DL (0.60-1.10); GLUCOSE 128 MG/DL (70-104); POTASSIUM 3.4 MMOL/L (3.5-5.1); SODIUM 141 MMOL/L (135-145); TOTAL CARBON DIOXIDE 27.5 MMOL/L (24-32)
[2020-12-12] MEDS: VANCOmycin 1250MG/NS 250ml Bag 250 ML IV SCH ×3 (04:06→19:25)
[2020-12-12 04:07] LABS: ALANINE AMINOTRANSFERASE 106 U/L (12-78); ALBUMIN/GLOBULIN RATIO 0.5 (1.1-1.5); ALKALINE PHOSPHATASE 137 IU/L (46-116); ASPARTATE AMINO TRANSFERASE 64 U/L (10-37); BILIRUBIN,TOTAL 0.3 MG/DL (0.1-1.0); BUN/CREATININE RATIO 19.1 (5.4-32.0); CALCIUM 7.8 MG/DL (8.5-10.1); MAGNESIUM 1.7 MG/DL (1.5-2.4); PHOSPHORUS 2.9 MG/DL (2.3-4.5); TOTAL PROTEIN 6.1 G/DL (6.4-8.2); eGFR > 90 ML/MIN
[2020-12-12] MEDS: NORepinephrine 8mg/ 250ml NS 250 ML IV PRN (05:00)
[2020-12-12] MEDS: potassium Cl 40MEQ/1/2NS 520ml 520 ML IV PRN (05:02)
--- NOTE | 2020-12-12 07:05 | NUR ---
Problems reprioritized. Patient report given, questions answered & plan of care reviewed with Dayami LUKE.
[2020-12-12] MEDS: docusate sodium 100mg/10ml UD cup CORPAK SCH ×2 (07:22→19:30)
[2020-12-12] MEDS: FENTANYL-0.9 % NACL/PF 100 ML IV PRN (08:06)
[2020-12-12] MEDS: pantoprazole 40 MG vial IV SCH (08:08)
[2020-12-12] MEDS: guaiFENesin/codeine phos 10ml UD oral syrup CORPAK SCH ×3 (08:08→19:29)
[2020-12-12] MEDS: fenofibrate 145mg tablet CORPAK SCH (08:09)
[2020-12-12] MEDS: quetiapine 100mg tablet CORPAK SCH ×2 (08:09→19:29)
[2020-12-12] MEDS: lactobacillus rhamnosus 10,000 MMU CELLS/CAPSULE CORPAK SCH ×2 (08:09→19:29)
[2020-12-12] MEDS: vitamin B comp w/Vit. C tab 1 TAB TABLET CORPAK SCH (08:09)
[2020-12-12] MEDS: atorvastatin 20mg tablet CORPAK SCH (08:09)
[2020-12-12] MEDS: cholecalciferol (vitamin D3) 1,000 unit (25mcg) tablet CORPAK SCH (08:09)
[2020-12-12] MEDS: enoxaparin 40mg/0.4ml syringe SUBCUT SCH (08:10)
[2020-12-12] MEDS: insulin glargine (Lantus) pen - multi-dose SQ SCH ×2 (09:32→20:07)
--- NOTE | 2020-12-12 18:14 | NUR ---
Problems reprioritized. Patient report given, questions answered & plan of care reviewed with Rosanna LUKE.
[2020-12-13] VITALS (22 sets, daily range): BP systolic 86–164; BP diastolic 53–100
[2020-12-13] MEDS: acetaminophen 325mg/10.15ml oral unit dose solution CORPAK PRN (00:12)
[2020-12-13] MEDS: propofol 1000mg/100ml bottle 100 ML IV SCH (01:48)
[2020-12-13] MEDS: NORepinephrine 8mg/ 250ml NS 250 ML IV PRN (01:49)
[2020-12-13] MEDS: insulin regular, human U-100 3ml vial - multi-dose SQ SCH ×4 (02:12→22:29)
[2020-12-13] MEDS: mineral oil/petrolatum ophthal oint EACHEYE SCH ×4 (02:12→19:53)
[2020-12-13] MEDS: VANCOmycin 1250MG/NS 250ml Bag 250 ML IV SCH ×3 (02:45→19:52)
[2020-12-13 03:28] LABS: BASOPHILS % (AUTO) 0.6 % (0-1); EOSINOPHILS # (AUTO) 0.3 X10'3 (0-0.9); EOSINOPHILS % (AUTO) 7.6 % (0-6); HEMATOCRIT 26.7 % (42.0-52.0); HEMOGLOBIN 9.2 g/dl (14.0-17.9); LYMPHOCYTES # (AUTO) 0.7 X10'3 (1.1-4.8); LYMPHOCYTES % (AUTO) 17.7 % (21-51); MEAN CORPUSCULAR HEMOGLOBIN 33.6 PG (27.0-31.0); MEAN CORPUSCULAR HGB CONC 34.3 g/dL (33.0-36.5); MEAN CORPUSCULAR VOLUME 97.8 FL (78-98); MEAN PLATELET VOLUME 8.7 FL (7.4-10.4); MONOCYTES # (AUTO) 0.2 X10'3 (0-0.9); NEUTROPHILS # (AUTO) 2.8 X10'3 (1.8-7.7); NEUTROPHILS % (AUTO) 70.1 % (42-75); PLATELET COUNT 190 X10'3 (140-440); RED BLOOD COUNT 2.73 X10'6 (4.70-6.10); RED CELL DISTRIBUTION WIDTH 17.2 % (11.5-14.5); WHITE BLOOD COUNT 4.1 X10'3 (4.5-11.0)
[2020-12-13 03:44] LABS: ALANINE AMINOTRANSFERASE 65 U/L (12-78); ALBUMIN 1.7 G/DL (3.4-5.0); ALBUMIN/GLOBULIN RATIO 0.5 (1.1-1.5); ALKALINE PHOSPHATASE 86 IU/L (46-116); ANION GAP 9 (8-16); ASPARTATE AMINO TRANSFERASE 28 U/L (10-37); BILIRUBIN,TOTAL 0.3 MG/DL (0.1-1.0); BLOOD UREA NITROGEN 9 MG/DL (7-18); CALCIUM 6.8 MG/DL (8.5-10.1); CHLORIDE 103 MMOL/L (99-107); CREATININE 0.41 MG/DL (0.60-1.10); GLUCOSE 175 MG/DL (70-104); MAGNESIUM 1.7 MG/DL (1.5-2.4); PHOSPHORUS 3.1 MG/DL (2.3-4.5); POTASSIUM 3.2 MMOL/L (3.5-5.1); SODIUM 140 MMOL/L (135-145); TOTAL CARBON DIOXIDE 28.5 MMOL/L (24-32); TOTAL PROTEIN 5.3 G/DL (6.4-8.2); eGFR > 90 ML/MIN
[2020-12-13 03:58] LABS: ABG BASE EXCESS 4.6 mmol/L (-2.0-2.0); ABG HCO3 28.7 mmol/L (22.0-26.0); ABG OXYGEN SATURATION 96.7 % (94-97); ABG PCO2 (T) 41.8 mmHg (35.0-48.0); ABG PO2 (T) 89.7 mmHg (75.0-100.0); ALLEN'S TEST Modified; FCOHb 0.3 % (0.0-3.9); FMetHb 0.3 % (0.0-1.5); FO2Hb 96.1 % (94-97); PATIENT TEMPERATURE 37.7; TIDAL VOLUME 518 mL; TOTAL HEMOGLOBIN 10.1 G/dl (14.0-18.0)
[2020-12-13] MEDS: amiodarone/D5 360MG/200ML BAG 200 ML IV SCH (04:21)
[2020-12-13] MEDS: docusate sodium 100mg/10ml UD cup CORPAK SCH ×2 (08:00→19:06)
[2020-12-13] MEDS: amiodarone 200mg tablet NG SCH (08:52)
[2020-12-13] MEDS: vitamin B comp w/Vit. C tab 1 TAB TABLET CORPAK SCH (08:52)
[2020-12-13] MEDS: guaiFENesin/codeine phos 10ml UD oral syrup CORPAK SCH ×3 (08:52→19:52)
[2020-12-13] MEDS: fenofibrate 145mg tablet CORPAK SCH (08:52)
[2020-12-13] MEDS: lactobacillus rhamnosus 10,000 MMU CELLS/CAPSULE CORPAK SCH ×2 (08:52→19:52)
[2020-12-13] MEDS: atorvastatin 20mg tablet CORPAK SCH (08:52)
[2020-12-13] MEDS: quetiapine 100mg tablet CORPAK SCH ×2 (08:53→19:52)
[2020-12-13] MEDS: cholecalciferol (vitamin D3) 1,000 unit (25mcg) tablet CORPAK SCH (08:53)
[2020-12-13] MEDS: pantoprazole 40 MG vial IV SCH (08:54)
[2020-12-13] MEDS: enoxaparin 40mg/0.4ml syringe SUBCUT SCH (08:54)
[2020-12-13] MEDS: insulin glargine (Lantus) pen - multi-dose SQ SCH ×2 (09:40→22:30)
[2020-12-13] MEDS: FENTANYL-0.9 % NACL/PF 100 ML IV PRN ×2 (10:46→19:54)
--- NOTE | 2020-12-13 12:05 | NUR ---
Reassessment: Pt remains intubated and tolerating TF at goal rate with GRV WNL. Propofol has slightly been decreased to 18.879 mL/hr providing 498 kcal/day. No changes to nutrition recommendations at this time, though TF will likely need to be adjusted if Propofol rate continues to decrease. LBM 12/11, receiving routine bowel care. Noted pt with a low Yariel of 12. Per physical assessment pt with no edema and chest tubes. No wounds per WOC notes. Will continue to follow closely and make recommendations as appropriate. Rec: 1) Continuous TF using Vital High Protein with goal rate of 70 mL/hr to provide 1680 mL total volume/day, 1680 kcal, 147 g protein, and 1405 mL water. Combined with Propofol at current rate of 18.179 mL/hr will provide 2178 total kcal 2) Monitor Propofol rate and adjust TF recommendations as appropriate. Once off Propofol resume continuous TF using Vital AF with 80 mL/hr goal; to provide 1920 mL volume, 2304 kcal, 1555 mL water, and 144 g protein. 3) Additional 125 mL water flush Q4H; monitor serum Na and adjust as appropriate 4) PALB q /; daily wts 5) Routine bowel care 6) IF to advance to PO diet upon extubation; continue NG feeds until PO intake consistently averages 65% of meals 7) DM education once appropriate following extubation, A1c 8.6% Addendum: 12/13/20 at [address] Amended: Links added.
[2020-12-13] MEDS: potassium Cl 40MEQ/250ML bag 250 ML IV PRN (15:15)
--- NOTE | 2020-12-13 18:30 | NUR ---
Patient in room CICU 2010. I have received report from Elias LUKE and had the opportunity to ask questions and assume patient care.
[2020-12-13] MEDS: mag hydrox/Alum hydrox/simeth 30ml oral suspension CORPAK PRN (19:52)
[2020-12-13] MEDS: ALPRAZolam 0.25mg tablet PO PRN (23:43)
[2020-12-14] VITALS (22 sets, daily range): BP systolic 93–137; BP diastolic 47–72
[2020-12-14] MEDS: mineral oil/petrolatum ophthal oint EACHEYE SCH ×4 (02:00→23:33)
[2020-12-14] MEDS: acetaminophen 325mg/10.15ml oral unit dose solution CORPAK PRN (02:16)
[2020-12-14] MEDS: insulin regular, human U-100 3ml vial - multi-dose SQ SCH (02:19)
[2020-12-14] MEDS ORDERED: VANCOMYCIN LEVEL IV ONE (02:30)
[2020-12-14 03:30] LABS: BASOPHILS % (AUTO) 0.5 % (0-1); EOSINOPHILS # (AUTO) 0.1 X10'3 (0-0.9); EOSINOPHILS % (AUTO) 1.2 % (0-6); HEMATOCRIT 28.9 % (42.0-52.0); HEMOGLOBIN 9.5 g/dl (14.0-17.9); LYMPHOCYTES # (AUTO) 0.7 X10'3 (1.1-4.8); LYMPHOCYTES % (AUTO) 11.2 % (21-51); MEAN CORPUSCULAR HEMOGLOBIN 31.9 PG (27.0-31.0); MEAN CORPUSCULAR HGB CONC 32.9 g/dL (33.0-36.5); MEAN PLATELET VOLUME 7.8 FL (7.4-10.4); MONOCYTES # (AUTO) 0.3 X10'3 (0-0.9); MONOCYTES % (AUTO) 4.4 % (2-12); NEUTROPHILS # (AUTO) 5.2 X10'3 (1.8-7.7); NEUTROPHILS % (AUTO) 82.7 % (42-75); PLATELET COUNT 335 X10'3 (140-440); RED BLOOD COUNT 2.98 X10'6 (4.70-6.10); RED CELL DISTRIBUTION WIDTH 17.1 % (11.5-14.5); WHITE BLOOD COUNT 6.2 X10'3 (4.5-11.0)
[2020-12-14] MEDS: FENTANYL-0.9 % NACL/PF 100 ML IV PRN ×2 (03:44→14:53)
[2020-12-14] MEDS: VANCOmycin 1250MG/NS 250ml Bag 250 ML IV SCH (03:45)
[2020-12-14 03:48] LABS: ALANINE AMINOTRANSFERASE 61 U/L (12-78); ALBUMIN/GLOBULIN RATIO 0.5 (1.1-1.5); ALKALINE PHOSPHATASE 153 IU/L (46-116); ANION GAP 6 (8-16); ASPARTATE AMINO TRANSFERASE 30 U/L (10-37); BILIRUBIN,TOTAL 0.3 MG/DL (0.1-1.0); BLOOD UREA NITROGEN 14 MG/DL (7-18); BUN/CREATININE RATIO 36.8 (5.4-32.0); CALCIUM 7.9 MG/DL (8.5-10.1); CHLORIDE 103 MMOL/L (99-107); CREATININE 0.38 MG/DL (0.60-1.10); GLUCOSE 82 MG/DL (70-104); MAGNESIUM 1.7 MG/DL (1.5-2.4); PHOSPHORUS 2.2 MG/DL (2.3-4.5); POTASSIUM 3.3 MMOL/L (3.5-5.1); SODIUM 137 MMOL/L (135-145); TOTAL CARBON DIOXIDE 27.8 MMOL/L (24-32); TOTAL PROTEIN 6.2 G/DL (6.4-8.2); TRIGLYCERIDES 117 MG/DL (20-135); eGFR > 90 ML/MIN
[2020-12-14 05:04] LABS: ABG BASE EXCESS 1.5 mmol/L (-2.0-2.0); ABG HCO3 25.1 mmol/L (22.0-26.0); ABG OXYGEN SATURATION 95.3 % (94-97); ABG PCO2 (T) 37.3 mmHg (35.0-48.0); ABG PO2 (T) 83.6 mmHg (75.0-100.0); ALLEN'S TEST POSITIVE; FCOHb 0.3 % (0.0-3.9); FMetHb 0.5 % (0.0-1.5); FO2Hb 94.5 % (94-97); PATIENT TEMPERATURE 37.9; PEEP 6 cm H2O; RESPIRATORY RATE 18 b/min; TIDAL VOLUME 425 mL; TOTAL HEMOGLOBIN 10.3 G/dl (14.0-18.0)
[2020-12-14] MEDS: potassium Cl 40MEQ/250ML bag 250 ML IV PRN (05:29)
[2020-12-14] MEDS: docusate sodium 100mg/10ml UD cup CORPAK SCH ×2 (08:00→20:00)
[2020-12-14] MEDS: insulin glargine (Lantus) pen - multi-dose SQ SCH (08:00)
[2020-12-14] MEDS: lactobacillus rhamnosus 10,000 MMU CELLS/CAPSULE CORPAK SCH (10:00)
[2020-12-14] MEDS: pantoprazole 40 MG vial IV SCH (11:03)
[2020-12-14] MEDS: enoxaparin 40mg/0.4ml syringe SUBCUT SCH (11:04)
[2020-12-14] MEDS: ALPRAZolam 0.25mg tablet PO PRN (11:04)
[2020-12-14] MEDS: atorvastatin 20mg tablet CORPAK SCH (11:05)
[2020-12-14] MEDS: fenofibrate 145mg tablet CORPAK SCH (11:05)
[2020-12-14] MEDS: guaiFENesin/codeine phos 10ml UD oral syrup CORPAK SCH ×2 (11:05→20:22)
[2020-12-14] MEDS: cholecalciferol (vitamin D3) 1,000 unit (25mcg) tablet CORPAK SCH (11:05)
[2020-12-14] MEDS: amiodarone 200mg tablet NG SCH (11:06)
[2020-12-14] MEDS: quetiapine 100mg tablet CORPAK SCH (11:11)
[2020-12-14] MEDS: vitamin B comp w/Vit. C tab 1 TAB TABLET CORPAK SCH (11:11)
[2020-12-14] MEDS: DEXMEDETOMIDINE 400MCG in NORMAL SALINE 100ml IV SCH ×2 (11:40→23:22)
[2020-12-14] MEDS: fentaNYL 25MCG/hour patch.TD72 TD SCH (11:45)
--- NOTE | 2020-12-14 18:30 | NUR ---
Patient in room CICU 2010. I have received report from Elias LUKE and had the opportunity to ask questions and assume patient care.
[2020-12-14] MEDS: meropenem inj 1 GM in normal saline 100ml IV soln 100 ML IV SCH (20:29)
[2020-12-14] MEDS ORDERED: insulin glargine (Lantus) pen - multi-dose SQ SCH (23:30)
[2020-12-15] VITALS (24 sets, daily range): BP systolic 80–142; BP diastolic 45–76
[2020-12-15] MEDS: guaiFENesin/codeine phos 10ml UD oral syrup CORPAK SCH ×2 (00:26→08:07)
[2020-12-15] MEDS: ALPRAZolam 0.25mg tablet PO PRN (00:26)
[2020-12-15] MEDS: lactobacillus rhamnosus 10,000 MMU CELLS/CAPSULE CORPAK SCH ×2 (00:26→08:06)
[2020-12-15] MEDS: quetiapine 100mg tablet CORPAK SCH ×2 (00:26→08:05)
[2020-12-15] MEDS: meropenem inj 1 GM in normal saline 100ml IV soln 100 ML IV SCH ×2 (00:27→08:07)
[2020-12-15] MEDS: diatr meglu/diatrizoate 30ml oral sol.-(3 dose) bottle PO SCH ×3 (00:27→20:35)
[2020-12-15] MEDS: mag hydrox/Alum hydrox/simeth 30ml oral suspension CORPAK PRN (00:27)
[2020-12-15] MEDS: mineral oil/petrolatum ophthal oint EACHEYE SCH ×3 (02:00→20:00)
[2020-12-15] MEDS: acetaminophen 325mg/10.15ml oral unit dose solution CORPAK PRN (03:00)
[2020-12-15 04:40] LABS: BASOPHILS % (AUTO) 0.5 % (0-1); EOSINOPHILS # (AUTO) 0.2 X10'3 (0-0.9); EOSINOPHILS % (AUTO) 2.9 % (0-6); LYMPHOCYTES % (AUTO) 15.9 % (21-51); MEAN CORPUSCULAR HEMOGLOBIN 31.1 PG (27.0-31.0); MEAN CORPUSCULAR HGB CONC 32.4 g/dL (33.0-36.5); MEAN CORPUSCULAR VOLUME 96.2 FL (78-98); MEAN PLATELET VOLUME 7.9 FL (7.4-10.4); MONOCYTES # (AUTO) 0.4 X10'3 (0-0.9); MONOCYTES % (AUTO) 5.7 % (2-12); NEUTROPHILS # (AUTO) 4.8 X10'3 (1.8-7.7); PLATELET COUNT 383 X10'3 (140-440); RED BLOOD COUNT 2.91 X10'6 (4.70-6.10); RED CELL DISTRIBUTION WIDTH 17.2 % (11.5-14.5); WHITE BLOOD COUNT 6.3 X10'3 (4.5-11.0)
[2020-12-15 04:55] LABS: ALANINE AMINOTRANSFERASE 60 U/L (12-78); ALBUMIN 1.8 G/DL (3.4-5.0); ALBUMIN/GLOBULIN RATIO 0.4 (1.1-1.5); ALKALINE PHOSPHATASE 123 IU/L (46-116); ANION GAP 7 (8-16); ASPARTATE AMINO TRANSFERASE 32 U/L (10-37); BILIRUBIN,TOTAL 0.3 MG/DL (0.1-1.0); BLOOD UREA NITROGEN 12 MG/DL (7-18); BUN/CREATININE RATIO 23.1 (5.4-32.0); CALCIUM 7.7 MG/DL (8.5-10.1); CHLORIDE 107 MMOL/L (99-107); CREATININE 0.52 MG/DL (0.60-1.10); GLUCOSE 80 MG/DL (70-104); MAGNESIUM 1.8 MG/DL (1.5-2.4); PHOSPHORUS 3.1 MG/DL (2.3-4.5); POTASSIUM 3.2 MMOL/L (3.5-5.1); SODIUM 143 MMOL/L (135-145); TOTAL CARBON DIOXIDE 28.8 MMOL/L (24-32); TOTAL PROTEIN 5.9 G/DL (6.4-8.2); TRIGLYCERIDES 93 MG/DL (20-135); eGFR > 90 ML/MIN
--- NOTE | 2020-12-15 07:09 | NUR ---
Problems reprioritized. Patient report given, questions answered & plan of care reviewed with Elias LUKE.
[2020-12-15] MEDS: docusate sodium 100mg/10ml UD cup CORPAK SCH (08:00)
[2020-12-15] MEDS: vitamin B comp w/Vit. C tab 1 TAB TABLET CORPAK SCH (08:05)
[2020-12-15] MEDS: pantoprazole 40 MG vial IV SCH (08:05)
[2020-12-15] MEDS: atorvastatin 20mg tablet CORPAK SCH (08:05)
[2020-12-15] MEDS: cholecalciferol (vitamin D3) 1,000 unit (25mcg) tablet CORPAK SCH (08:06)
[2020-12-15] MEDS: fenofibrate 145mg tablet CORPAK SCH (08:06)
[2020-12-15] MEDS: enoxaparin 40mg/0.4ml syringe SUBCUT SCH (08:08)
[2020-12-15] MEDS ORDERED: dextrose ORAL solution 15 GM/59 ML bottle PEG PRN ×2 (10:30)
[2020-12-15] MEDS ORDERED: VANCOMYCIN LEVEL IV ONE (10:30)
[2020-12-15] MEDS ORDERED: mag hydrox/Alum hydrox/simeth 30ml oral suspension PEG PRN (10:32)
[2020-12-15] MEDS ORDERED: magnesium hydroxide 30ml (MOM) UD suspension PEG PRN (10:33)
[2020-12-15] MEDS ORDERED: Neutra Phos packet PEG PRN (10:33)
[2020-12-15] MEDS ORDERED: ondansetron 4mg rapidly disintigrating tab PEG PRN (10:33)
[2020-12-15] MEDS ORDERED: potassium Cl 20 mEq SR tablet PEG PRN (10:34)
[2020-12-15] MEDS ORDERED: iohexol 300mg/ml 100ml inj. ONE (10:58)
[2020-12-15] MEDS: micafungin inj 100 MG in normal saline 100ml IV soln 100 ML IV SCH (11:00)
[2020-12-15] MEDS: DEXMEDETOMIDINE 400MCG in NORMAL SALINE 100ml IV SCH (11:04)
--- NOTE | 2020-12-15 11:33 | NUR ---
Reassessment: Pt remains intubated and tolerating TF at goal rate with GRYoandy WNL. MD wilfrido SOLANO adjusting TF recommendations given pt no longer receiving Propofol, see recommendations below that were d/w rn charge. LBM 12/13 with 250 mL stool output per I&O, though per med list bowel care medications are held d/t diarrhea. Will continue to follow closely and make recommendations as appropriate. Rec: 1) Continuous TF using Vital AF with 80 mL/hr goal; to provide 1920 mL volume, 2304 kcal, 1555 mL water, and 144 g protein. 2) Monitor Propofol rate and adjust TF recommendations as appropriate; pt currently not receiving Propofol 3) Additional 125 mL water flush Q4H; monitor serum Na and adjust as appropriate 4) PALB q /; daily wts 5) Routine bowel care Addendum: 12/15/20 at [address] Amended: Links added.
--- NOTE | 2020-12-15 11:53 | NUR ---
tO CT SCAN AND BACK AFTER PREP DONE ALL MONITORING EQUIPMENT IN PLACE.LEFT AT 1125 BACK AT 1145 TRIP WITHOUT INCIDENT
[2020-12-15] MEDS: guaiFENesin/codeine phos 10ml UD oral syrup PEG SCH ×2 (13:00→21:00)
[2020-12-15] MEDS: insulin regular, human U-100 3ml vial - multi-dose SQ SCH (15:28)
[2020-12-15] MEDS: docusate sodium 100mg/10ml UD cup PEG SCH (19:49)
[2020-12-15] MEDS: insulin glargine (Lantus) pen - multi-dose SQ SCH (21:00)
[2020-12-15] MEDS: lactobacillus rhamnosus 10,000 MMU CELLS/CAPSULE PEG SCH (21:10)
[2020-12-15] MEDS: quetiapine 100mg tablet PEG SCH (21:11)
[2020-12-15] MEDS: nystatin 15 GM powder TP SCH (21:17)
[2020-12-15] MEDS: acetaminophen 325mg/10.15ml oral unit dose solution PEG PRN (21:21)
[2020-12-15] MEDS: potassium Cl 40MEQ/1/2NS 520ml 520 ML IV PRN (21:21)
[2020-12-15] MEDS ORDERED: insulin glargine (Lantus) pen - multi-dose SQ ONE (23:00)
[2020-12-16] VITALS (24 sets, daily range): BP systolic 94–147; BP diastolic 52–83
[2020-12-16] MEDS: potassium Cl 40MEQ/1/2NS 520ml 520 ML IV PRN (00:29)
[2020-12-16] MEDS: meropenem inj 1 GM in normal saline 100ml IV soln 100 ML IV SCH ×3 (00:29→15:00)
--- NOTE | 2020-12-16 03:00 | NUR ---
Unable to run vanco @ this time. The midline has only 1 port and IVFs are infusing.
[2020-12-16 03:13] LABS: BASOPHILS % (AUTO) 0.3 % (0-1); EOSINOPHILS # (AUTO) 0.3 X10'3 (0-0.9); EOSINOPHILS % (AUTO) 4.4 % (0-6); HEMATOCRIT 26.1 % (42.0-52.0); HEMOGLOBIN 8.4 g/dl (14.0-17.9); LYMPHOCYTES % (AUTO) 16.3 % (21-51); MEAN CORPUSCULAR HEMOGLOBIN 31.3 PG (27.0-31.0); MEAN CORPUSCULAR HGB CONC 32.4 g/dL (33.0-36.5); MEAN CORPUSCULAR VOLUME 96.6 FL (78-98); MEAN PLATELET VOLUME 7.5 FL (7.4-10.4); MONOCYTES # (AUTO) 0.4 X10'3 (0-0.9); MONOCYTES % (AUTO) 7.1 % (2-12); NEUTROPHILS # (AUTO) 4.3 X10'3 (1.8-7.7); NEUTROPHILS % (AUTO) 71.9 % (42-75); PLATELET COUNT 433 X10'3 (140-440); RED CELL DISTRIBUTION WIDTH 17.3 % (11.5-14.5)
[2020-12-16 03:23] LABS: D-DIMER 0.84 MG/L FEU (0-0.50)
[2020-12-16 03:30] LABS: ALANINE AMINOTRANSFERASE 77 U/L (12-78); ALBUMIN 1.7 G/DL (3.4-5.0); ALBUMIN/GLOBULIN RATIO 0.4 (1.1-1.5); ALKALINE PHOSPHATASE 126 IU/L (46-116); ANION GAP 6 (8-16); ASPARTATE AMINO TRANSFERASE 47 U/L (10-37); BILIRUBIN,TOTAL 0.3 MG/DL (0.1-1.0); BLOOD UREA NITROGEN 16 MG/DL (7-18); BUN/CREATININE RATIO 32.7 (5.4-32.0); CALCIUM 7.4 MG/DL (8.5-10.1); CHLORIDE 110 MMOL/L (99-107); CREATININE 0.49 MG/DL (0.60-1.10); GLUCOSE 104 MG/DL (70-104); MAGNESIUM 1.7 MG/DL (1.5-2.4); POTASSIUM 3.5 MMOL/L (3.5-5.1); SODIUM 143 MMOL/L (135-145); TOTAL CARBON DIOXIDE 26.7 MMOL/L (24-32); TOTAL PROTEIN 5.8 G/DL (6.4-8.2); eGFR > 90 ML/MIN
[2020-12-16] MEDS ORDERED: scopolamine 1.5mg patch.TD72 (72-hour patch) TD SCH (03:55)
--- NOTE | 2020-12-16 06:00 | NUR ---
Patient in room CICU 2010. I have received report from Abby LUKE and had the opportunity to ask questions and assume patient care.
[2020-12-16] MEDS: DEXMEDETOMIDINE 400MCG in NORMAL SALINE 100ml IV SCH ×3 (07:20→18:57)
[2020-12-16] MEDS: mineral oil/petrolatum ophthal oint EACHEYE SCH ×4 (07:21→18:55)
[2020-12-16] MEDS: guaiFENesin/codeine phos 10ml UD oral syrup PEG SCH ×3 (07:39→21:09)
[2020-12-16] MEDS: scopolamine 1mg/72 hr patch TD SCH (07:40)
[2020-12-16] MEDS: enoxaparin 40mg/0.4ml syringe SUBCUT SCH (07:41)
[2020-12-16] MEDS: amiodarone 200mg tablet PEG SCH (07:42)
[2020-12-16] MEDS: pantoprazole 40 MG vial IV SCH (07:42)
[2020-12-16] MEDS: fenofibrate 145mg tablet PEG SCH (07:42)
[2020-12-16] MEDS: acetaminophen 325mg/10.15ml oral unit dose solution PEG PRN ×2 (07:42→14:58)
[2020-12-16] MEDS: lactobacillus rhamnosus 10,000 MMU CELLS/CAPSULE PEG SCH ×2 (07:42→21:09)
[2020-12-16] MEDS: cholecalciferol (vitamin D3) 1,000 unit (25mcg) tablet CORPAK SCH (07:42)
[2020-12-16] MEDS: quetiapine 100mg tablet PEG SCH ×2 (07:43→21:10)
[2020-12-16] MEDS: nystatin 15 GM powder TP SCH ×3 (07:43→21:19)
[2020-12-16] MEDS: atorvastatin 20mg tablet PEG SCH (07:43)
[2020-12-16] MEDS: vitamin B comp w/Vit. C tab 1 TAB TABLET PEG SCH (07:43)
[2020-12-16] MEDS: docusate sodium 100mg/10ml UD cup PEG SCH ×2 (07:43→18:56)
[2020-12-16] MEDS: micafungin inj 100 MG in normal saline 100ml IV soln 100 ML IV SCH (08:34)
[2020-12-16] MEDS: insulin regular, human U-100 3ml vial - multi-dose SQ SCH ×3 (08:47→21:19)
--- NOTE | 2020-12-16 12:01 | NUR ---
Spoke with Shannon over the phone and gave update on pts condition. also dropped off hearing aides for pt. Attempted to place hearing aides and pt said there is a part missing. Will inform the .
--- NOTE | 2020-12-16 12:26 | NUR ---
Informed Dr Antunez of pt having fever, blood cultures and urine sent and are pending. ordered sputum culture. Addendum: 12/16/20 at 1227 by Dayami Bianchi RN Also informed MD that pt complained of throat hurting. aware and examined pt.
[2020-12-16] MEDS ORDERED: linezolid 600mg tablet PEG SCH (13:25)
--- NOTE | 2020-12-16 18:29 | NUR ---
Problems reprioritized. Patient report given, questions answered & plan of care reviewed with Abby LUKE.
--- NOTE | 2020-12-16 18:58 | NUR ---
Pt does not tolerate Precedex. His HR drops into the low 40's. This medication is not infusing @ this time.
[2020-12-16] MEDS: insulin glargine (Lantus) pen - multi-dose SQ SCH (21:17)
[2020-12-17] VITALS (23 sets, daily range): BP systolic 105–150; BP diastolic 55–109
[2020-12-17] MEDS: meropenem inj 1 GM in normal saline 100ml IV soln 100 ML IV SCH ×3 (00:05→16:18)
[2020-12-17] MEDS: mineral oil/petrolatum ophthal oint EACHEYE SCH ×4 (02:00→20:00)
[2020-12-17] MEDS: DEXMEDETOMIDINE 400MCG in NORMAL SALINE 100ml IV SCH ×2 (07:45→21:34)
[2020-12-17] MEDS: guaiFENesin/codeine phos 10ml UD oral syrup PEG SCH ×3 (08:00→20:16)
[2020-12-17] MEDS: quetiapine 100mg tablet PEG SCH ×2 (08:00→20:17)
--- NOTE | 2020-12-17 08:28 | NUR ---
Neda Consult: Pt currently intubated and on TF. Low tyramine diet education not appropriate at this time given pt's condition. Will continue to monitor. Addendum: 12/17/20 at [address] Amended: Links added.
[2020-12-17] MEDS: micafungin inj 100 MG in normal saline 100ml IV soln 100 ML IV SCH (09:17)
[2020-12-17] MEDS: nystatin 15 GM powder TP SCH ×3 (09:17→20:50)
[2020-12-17] MEDS: docusate sodium 100mg/10ml UD cup PEG SCH ×2 (09:18→20:00)
[2020-12-17] MEDS: pantoprazole 40 MG vial IV SCH (09:18)
[2020-12-17] MEDS: amiodarone 200mg tablet PEG SCH (09:18)
[2020-12-17] MEDS: enoxaparin 40mg/0.4ml syringe SUBCUT SCH (09:18)
[2020-12-17] MEDS: ALPRAZolam 0.25mg tablet PEG PRN (09:19)
[2020-12-17] MEDS: lactobacillus rhamnosus 10,000 MMU CELLS/CAPSULE PEG SCH ×2 (09:19→20:18)
[2020-12-17] MEDS: cholecalciferol (vitamin D3) 1,000 unit (25mcg) tablet CORPAK SCH (09:19)
[2020-12-17] MEDS: atorvastatin 20mg tablet PEG SCH (09:19)
[2020-12-17] MEDS: vitamin B comp w/Vit. C tab 1 TAB TABLET PEG SCH (09:19)
[2020-12-17] MEDS: fenofibrate 145mg tablet PEG SCH (09:19)
[2020-12-17] MEDS: fentaNYL 25MCG/hour patch.TD72 TD SCH (11:57)
[2020-12-17] MEDS: insulin regular, human U-100 3ml vial - multi-dose SQ SCH ×2 (16:21→20:50)
[2020-12-17] MEDS: morphine 2 MG/ML inj. syringe IV PRN (20:17)
[2020-12-17] MEDS: insulin glargine (Lantus) pen - multi-dose SQ SCH (20:48)
[2020-12-18] VITALS (24 sets, daily range): BP systolic 107–164; BP diastolic 62–90
[2020-12-18] MEDS: meropenem inj 1 GM in normal saline 100ml IV soln 100 ML IV SCH ×2 (00:33→08:04)
[2020-12-18] MEDS: mineral oil/petrolatum ophthal oint EACHEYE SCH ×4 (00:38→20:00)
--- NOTE | 2020-12-18 01:52 | NUR ---
The assessment for 12/17/20 was put under the incorrect date. (12/16/20 0150) Addendum: 12/18/20 at 0208 by Mavis Burgos RN This assessment was moved to the correct date and the original was deleted.
[2020-12-18] MEDS: insulin regular, human U-100 3ml vial - multi-dose SQ SCH ×4 (03:06→20:48)
[2020-12-18] MEDS: nystatin 15 GM powder TP SCH ×3 (08:00→20:51)
[2020-12-18] MEDS: docusate sodium 100mg/10ml UD cup PEG SCH ×2 (08:00→20:00)
[2020-12-18] MEDS: amiodarone 200mg tablet PEG SCH (08:05)
[2020-12-18] MEDS: fenofibrate 145mg tablet PEG SCH (08:05)
[2020-12-18] MEDS: quetiapine 100mg tablet PEG SCH ×2 (08:05→20:31)
[2020-12-18] MEDS: lactobacillus rhamnosus 10,000 MMU CELLS/CAPSULE PEG SCH ×2 (08:05→20:31)
[2020-12-18] MEDS: guaiFENesin/codeine phos 10ml UD oral syrup PEG SCH ×3 (08:05→20:31)
[2020-12-18] MEDS: cholecalciferol (vitamin D3) 1,000 unit (25mcg) tablet CORPAK SCH (08:05)
[2020-12-18] MEDS: vitamin B comp w/Vit. C tab 1 TAB TABLET PEG SCH (08:06)
[2020-12-18] MEDS: atorvastatin 20mg tablet PEG SCH (08:06)
[2020-12-18] MEDS: pantoprazole 40 MG vial IV SCH (08:06)
[2020-12-18] MEDS: DEXMEDETOMIDINE 400MCG in NORMAL SALINE 100ml IV SCH (09:16)
[2020-12-18] MEDS: micafungin inj 100 MG in normal saline 100ml IV soln 100 ML IV SCH (09:26)
[2020-12-18] MEDS: enoxaparin 40mg/0.4ml syringe SUBCUT SCH (09:27)
[2020-12-18 09:41] LABS: BASOPHILS % (AUTO) 0.4 % (0-1); EOSINOPHILS # (AUTO) 0.3 X10'3 (0-0.9); MONOCYTES # (AUTO) 0.7 X10'3 (0-0.9); NEUTROPHILS # (AUTO) 5.8 X10'3 (1.8-7.7)
[2020-12-18 09:43] LABS: EOSINOPHILS % (AUTO) 3.3 % (0-6); HEMATOCRIT 30.6 % (42.0-52.0); HEMOGLOBIN 9.8 g/dl (14.0-17.9); LYMPHOCYTES % (AUTO) 23.1 % (21-51); MEAN CORPUSCULAR HEMOGLOBIN 30.6 PG (27.0-31.0); MEAN CORPUSCULAR HGB CONC 32.1 g/dL (33.0-36.5); MEAN CORPUSCULAR VOLUME 95.4 FL (78-98); MEAN PLATELET VOLUME 7.9 FL (7.4-10.4); MONOCYTES % (AUTO) 8.1 % (2-12); NEUTROPHILS % (AUTO) 65.1 % (42-75); PLATELET COUNT 707 X10'3 (140-440); RED BLOOD COUNT 3.21 X10'6 (4.70-6.10); RED CELL DISTRIBUTION WIDTH 17.1 % (11.5-14.5); WHITE BLOOD COUNT 8.9 X10'3 (4.5-11.0)
[2020-12-18 09:53] LABS: ALANINE AMINOTRANSFERASE 140 U/L (12-78); ALBUMIN 1.8 G/DL (3.4-5.0); ALBUMIN/GLOBULIN RATIO 0.4 (1.1-1.5); ALKALINE PHOSPHATASE 118 IU/L (46-116); ASPARTATE AMINO TRANSFERASE 81 U/L (10-37); BILIRUBIN,TOTAL 0.3 MG/DL (0.1-1.0); CALCIUM 8.3 MG/DL (8.5-10.1); CHLORIDE 104 MMOL/L (99-107); CREATININE 0.39 MG/DL (0.60-1.10); GLUCOSE 115 MG/DL (70-104); POTASSIUM 4.2 MMOL/L (3.5-5.1); TOTAL CARBON DIOXIDE 24.5 MMOL/L (24-32); TOTAL PROTEIN 6.8 G/DL (6.4-8.2); eGFR > 90 ML/MIN
[2020-12-18 10:02] LABS: ANION GAP 14 (8-16); BLOOD UREA NITROGEN 15 MG/DL (7-18); BUN/CREATININE RATIO 38.5 (5.4-32.0); SODIUM 142 MMOL/L (135-145)
[2020-12-18 10:15] LABS: ANISOCYTOSIS 1+; PLATELET ESTIMATE INCREASED; SCHISTOCYTES FEW
[2020-12-18 10:16] LABS: POLYCHROMASIA FEW
[2020-12-18] MEDS: acetaminophen 325mg/10.15ml oral unit dose solution PEG PRN ×2 (10:25→22:25)
--- NOTE | 2020-12-18 11:55 | NUR ---
F/u 12/18: Noted pt documented as receiving Vital High Protein at 70ml/hr when Vital AF at 80ml/hr ordered in EMR per RUSS recs placed 12/15. RUSS d/w charge master coordinator and dietitian at rounds as well as w/ patient's RN. Okay to initiate at 80ml/hr goal since tolerating prior 70ml/hr rate. Labs pending this AM w/ last taken 12/16 per EMR. Will monitor for TF tolerance and adjustment needs. Addendum: 12/18/20 at [address] Amended: Links added.
--- NOTE | 2020-12-18 18:15 | NUR ---
Patient in room CICU 2010. I have received report from Marlen LUKE and had the opportunity to ask questions and assume patient care.
[2020-12-18] MEDS: insulin glargine (Lantus) pen - multi-dose SQ SCH (20:49)
[2020-12-19] VITALS (24 sets, daily range): BP systolic 108–145; BP diastolic 59–91
[2020-12-19] MEDS: mineral oil/petrolatum ophthal oint EACHEYE SCH ×4 (02:00→20:00)
[2020-12-19] MEDS: insulin regular, human U-100 3ml vial - multi-dose SQ SCH ×4 (02:41→20:28)
[2020-12-19 05:54] LABS: HEMOGLOBIN 9.9 g/dl (14.0-17.9); LYMPHOCYTES # (AUTO) 1.5 X10'3 (1.1-4.8); MEAN CORPUSCULAR VOLUME 94.9 FL (78-98); MONOCYTES # (AUTO) 0.6 X10'3 (0-0.9)
[2020-12-19 05:56] LABS: BASOPHILS % (AUTO) 0.6 % (0-1); EOSINOPHILS # (AUTO) 0.2 X10'3 (0-0.9); EOSINOPHILS % (AUTO) 2.8 % (0-6); LYMPHOCYTES % (AUTO) 19.7 % (21-51); MEAN CORPUSCULAR HEMOGLOBIN 30.3 PG (27.0-31.0); MEAN PLATELET VOLUME 7.5 FL (7.4-10.4); MONOCYTES % (AUTO) 7.6 % (2-12); NEUTROPHILS # (AUTO) 5.4 X10'3 (1.8-7.7); NEUTROPHILS % (AUTO) 69.3 % (42-75); PLATELET COUNT 704 X10'3 (140-440); RED BLOOD COUNT 3.26 X10'6 (4.70-6.10); RED CELL DISTRIBUTION WIDTH 17.2 % (11.5-14.5); WHITE BLOOD COUNT 7.7 X10'3 (4.5-11.0)
[2020-12-19] MEDS: scopolamine 1mg/72 hr patch TD SCH (06:00)
[2020-12-19 06:08] LABS: ALBUMIN 1.9 G/DL (3.4-5.0); ANION GAP 8 (8-16); BLOOD UREA NITROGEN 11 MG/DL (7-18); BUN/CREATININE RATIO 23.9 (5.4-32.0); CALCIUM 8.3 MG/DL (8.5-10.1); CHLORIDE 105 MMOL/L (99-107); CREATININE 0.46 MG/DL (0.60-1.10); GLUCOSE 110 MG/DL (70-104); MAGNESIUM 2.2 MG/DL (1.5-2.4); PHOSPHORUS 3.5 MG/DL (2.3-4.5); POTASSIUM 4.3 MMOL/L (3.5-5.1); SODIUM 139 MMOL/L (135-145); TOTAL CARBON DIOXIDE 25.9 MMOL/L (24-32); eGFR > 90 ML/MIN
--- NOTE | 2020-12-19 06:15 | NUR ---
Problems reprioritized. Patient report given, questions answered & plan of care reviewed with Maciej LUKE.
--- NOTE | 2020-12-19 06:40 | NUR ---
Patient in room CICU 2010. I have received report from Jaylon LUKE and had the opportunity to ask questions and assume patient care.
[2020-12-19 07:21] LABS: ANISOCYTOSIS 1+; LARGE PLATELETS FEW; NUCLEATED RED BLOOD CELLS 1 /100WBC (0-0); PLATELET ESTIMATE INCREASED; POLYCHROMASIA FEW; TOTAL CELLS COUNTED 100
[2020-12-19 07:22] LABS: SCHISTOCYTES FEW
[2020-12-19] MEDS: amiodarone 200mg tablet PEG SCH (07:46)
[2020-12-19] MEDS: quetiapine 100mg tablet PEG SCH ×2 (07:46→20:11)
[2020-12-19] MEDS: lactobacillus rhamnosus 10,000 MMU CELLS/CAPSULE PEG SCH ×2 (07:46→20:11)
[2020-12-19] MEDS: fenofibrate 145mg tablet PEG SCH (07:46)
[2020-12-19] MEDS: vitamin B comp w/Vit. C tab 1 TAB TABLET PEG SCH (07:47)
[2020-12-19] MEDS: cholecalciferol (vitamin D3) 1,000 unit (25mcg) tablet CORPAK SCH (07:47)
[2020-12-19] MEDS: atorvastatin 20mg tablet PEG SCH (07:47)
[2020-12-19] MEDS: docusate sodium 100mg/10ml UD cup PEG SCH ×2 (07:48→20:00)
[2020-12-19] MEDS: enoxaparin 40mg/0.4ml syringe SUBCUT SCH (07:48)
[2020-12-19] MEDS: guaiFENesin/codeine phos 10ml UD oral syrup PEG SCH ×3 (07:48→20:11)
[2020-12-19] MEDS: micafungin inj 100 MG in normal saline 100ml IV soln 100 ML IV SCH (07:49)
[2020-12-19] MEDS: pantoprazole 40 MG vial IV SCH (07:49)
[2020-12-19] MEDS: nystatin 15 GM powder TP SCH ×3 (08:41→21:22)
--- NOTE | 2020-12-19 11:41 | NUR ---
Physical therapy paged: Patient was curious if PT is going to work with him at some point today? Thanks [id number]
--- NOTE | 2020-12-19 11:48 | NUR ---
Reassessment: Pt remains intubated and tolerating TF at goal rate of 80 mL/hr with GRV WNL. LBM 12/18. Pt documented with diarrhea however continues to receive routine Colace per EMR. No documentation of stool output in I&O. No changes to nutrition intervention recommendations at this time. Will continue to follow. Rec: 1) Continuous PEG TF using Vital AF with 80 mL/hr goal; to provide 1920 mL volume, 2304 kcal, 1555 mL water, and 144 g protein. 2) Monitor Propofol rate and adjust TF recommendations as appropriate; pt currently not receiving Propofol 3) Additional 125 mL water flush Q4H; monitor serum Na and adjust as appropriate 4) PALB q /; daily wts 5) Routine bowel care Addendum: 12/19/20 at [address] Amended: Links added.
[2020-12-19] MEDS: acetaminophen 325mg/10.15ml oral unit dose solution PEG PRN ×2 (12:15→20:11)
--- NOTE | 2020-12-19 13:34 | NUR ---
PICC nurse paged: [id number], Pt complaining of pain at extended PIV in [place]. Can you place another PIV? Thanks [id number]
[2020-12-19 13:44] LABS: ABG BASE EXCESS 1.7 mmol/L (-2.0-2.0); ABG HCO3 24.6 mmol/L (22.0-26.0); ABG OXYGEN SATURATION 93.2 % (94-97); ABG PCO2 (T) 34.3 mmHg (35.0-48.0); ABG PO2 (T) 69.3 mmHg (75.0-100.0); ALLEN'S TEST POSITIVE; FCOHb 0.3 % (0.0-3.9); FMetHb 0.3 % (0.0-1.5); FO2Hb 92.6 % (94-97); PEEP 5 cm H2O; TIDAL VOLUME 551 mL
--- NOTE | 2020-12-19 18:15 | NUR ---
Patient in room CICU 2010. I have received report from Maciej LUKE and had the opportunity to ask questions and assume patient care.
--- NOTE | 2020-12-19 18:17 | NUR ---
Problems reprioritized. Patient report given, questions answered & plan of care reviewed with Jaylon LUKE.
[2020-12-19] MEDS: insulin glargine (Lantus) pen - multi-dose SQ SCH (20:29)
[2020-12-20] VITALS (24 sets, daily range): BP systolic 100–151; BP diastolic 61–81
[2020-12-20] MEDS: ALPRAZolam 0.25mg tablet PEG PRN (00:41)
[2020-12-20] MEDS: mineral oil/petrolatum ophthal oint EACHEYE SCH ×4 (02:00→20:00)
[2020-12-20] MEDS ORDERED: VANCOMYCIN LEVEL IV ONE ×2 (02:30→10:30)
[2020-12-20] MEDS: insulin regular, human U-100 3ml vial - multi-dose SQ SCH ×3 (02:36→21:17)
[2020-12-20] MEDS: acetaminophen 325mg/10.15ml oral unit dose solution PEG PRN ×2 (03:20→16:44)
[2020-12-20 06:20] LABS: BASOPHILS % (AUTO) 0.4 % (0-1); EOSINOPHILS # (AUTO) 0.1 X10'3 (0-0.9); LYMPHOCYTES # (AUTO) 1.5 X10'3 (1.1-4.8); MEAN PLATELET VOLUME 7.7 FL (7.4-10.4); MONOCYTES # (AUTO) 0.6 X10'3 (0-0.9); MONOCYTES % (AUTO) 5.2 % (2-12)
[2020-12-20 06:25] LABS: HEMATOCRIT 30.1 % (42.0-52.0); HEMOGLOBIN 9.8 g/dl (14.0-17.9); MEAN CORPUSCULAR HEMOGLOBIN 31.2 PG (27.0-31.0); MEAN CORPUSCULAR HGB CONC 32.7 g/dL (33.0-36.5); MEAN CORPUSCULAR VOLUME 95.6 FL (78-98); NEUTROPHILS # (AUTO) 8.4 X10'3 (1.8-7.7); NEUTROPHILS % (AUTO) 79.4 % (42-75); PLATELET COUNT 708 X10'3 (140-440); RED BLOOD COUNT 3.15 X10'6 (4.70-6.10); RED CELL DISTRIBUTION WIDTH 17.8 % (11.5-14.5); WHITE BLOOD COUNT 10.6 X10'3 (4.5-11.0)
[2020-12-20 06:31] LABS: ALANINE AMINOTRANSFERASE 100 U/L (12-78); ALBUMIN/GLOBULIN RATIO 0.4 (1.1-1.5); ALKALINE PHOSPHATASE 114 IU/L (46-116); ANION GAP 11 (8-16); ASPARTATE AMINO TRANSFERASE 44 U/L (10-37); BILIRUBIN,TOTAL 0.4 MG/DL (0.1-1.0); BLOOD UREA NITROGEN 13 MG/DL (7-18); BUN/CREATININE RATIO 22.8 (5.4-32.0); CHLORIDE 106 MMOL/L (99-107); CREATININE 0.57 MG/DL (0.60-1.10); GLUCOSE 112 MG/DL (70-104); POTASSIUM 3.7 MMOL/L (3.5-5.1); SODIUM 142 MMOL/L (135-145); TOTAL CARBON DIOXIDE 25.5 MMOL/L (24-32); TOTAL PROTEIN 6.8 G/DL (6.4-8.2); eGFR > 90 ML/MIN
--- NOTE | 2020-12-20 06:39 | NUR ---
Problems reprioritized. Patient report given, questions answered & plan of care reviewed with Jamie LUKE.
[2020-12-20 06:42] LABS: MAGNESIUM 1.8 MG/DL (1.5-2.4); PHOSPHORUS 3.4 MG/DL (2.3-4.5)
[2020-12-20 06:50] LABS: VANCOMYCIN,TROUGH 48.8 UG/ML (6.0-14.0)
[2020-12-20] MEDS: docusate sodium 100mg/10ml UD cup PEG SCH ×2 (08:25→20:00)
[2020-12-20] MEDS: pantoprazole 40 MG vial IV SCH (08:25)
[2020-12-20] MEDS: guaiFENesin/codeine phos 10ml UD oral syrup PEG SCH (08:25)
[2020-12-20] MEDS: quetiapine 100mg tablet PEG SCH ×2 (08:26→21:12)
[2020-12-20] MEDS: cholecalciferol (vitamin D3) 1,000 unit (25mcg) tablet CORPAK SCH (08:26)
[2020-12-20] MEDS: fenofibrate 145mg tablet PEG SCH (08:26)
[2020-12-20] MEDS: vitamin B comp w/Vit. C tab 1 TAB TABLET PEG SCH (08:26)
[2020-12-20] MEDS: amiodarone 200mg tablet PEG SCH (08:26)
[2020-12-20] MEDS: enoxaparin 40mg/0.4ml syringe SUBCUT SCH (08:27)
[2020-12-20] MEDS: atorvastatin 20mg tablet PEG SCH (08:27)
[2020-12-20] MEDS: nystatin 15 GM powder TP SCH ×3 (08:28→21:22)
[2020-12-20] MEDS: micafungin inj 100 MG in normal saline 100ml IV soln 100 ML IV SCH (08:30)
[2020-12-20] MEDS: lactobacillus rhamnosus 10,000 MMU CELLS/CAPSULE PEG SCH (08:30)
[2020-12-20 10:43] LABS: CREATINE KINASE 23 U/L (39-308)
[2020-12-20] MEDS: fentaNYL 25MCG/hour patch.TD72 TD SCH (13:45)
[2020-12-20] MEDS: VANCOmycin 1250MG/NS 250ml Bag 250 ML IV SCH (19:32)
[2020-12-20] MEDS: insulin glargine (Lantus) pen - multi-dose SQ SCH (21:14)
[2020-12-21] VITALS (23 sets, daily range): BP systolic 105–126; BP diastolic 59–74
[2020-12-21] MEDS: mineral oil/petrolatum ophthal oint EACHEYE SCH ×2 (01:44→08:00)
[2020-12-21] MEDS: insulin regular, human U-100 3ml vial - multi-dose SQ SCH ×4 (02:00→21:46)
[2020-12-21] MEDS: acetaminophen 325mg/10.15ml oral unit dose solution PEG PRN ×2 (02:02→13:25)
[2020-12-21] MEDS: VANCOmycin 1250MG/NS 250ml Bag 250 ML IV SCH ×3 (03:57→19:54)
[2020-12-21 06:08] LABS: EOSINOPHILS # (AUTO) 0.1 X10'3 (0-0.9); MEAN PLATELET VOLUME 7.7 FL (7.4-10.4)
[2020-12-21 06:12] LABS: BASOPHILS % (AUTO) 0.1 % (0-1); HEMATOCRIT 28.9 % (42.0-52.0); HEMOGLOBIN 9.4 g/dl (14.0-17.9); LYMPHOCYTES # (AUTO) 1.9 X10'3 (1.1-4.8); LYMPHOCYTES % (AUTO) 16.5 % (21-51); MEAN CORPUSCULAR HEMOGLOBIN 30.4 PG (27.0-31.0); MEAN CORPUSCULAR HGB CONC 32.5 g/dL (33.0-36.5); MEAN CORPUSCULAR VOLUME 93.8 FL (78-98); MONOCYTES # (AUTO) 0.6 X10'3 (0-0.9); MONOCYTES % (AUTO) 5.2 % (2-12); NEUTROPHILS # (AUTO) 8.7 X10'3 (1.8-7.7); NEUTROPHILS % (AUTO) 77.2 % (42-75); PLATELET COUNT 660 X10'3 (140-440); RED BLOOD COUNT 3.08 X10'6 (4.70-6.10); RED CELL DISTRIBUTION WIDTH 17.6 % (11.5-14.5); WHITE BLOOD COUNT 11.3 X10'3 (4.5-11.0)
[2020-12-21 06:40] LABS: ALANINE AMINOTRANSFERASE 89 U/L (12-78); ALBUMIN 1.9 G/DL (3.4-5.0); ALBUMIN/GLOBULIN RATIO 0.4 (1.1-1.5); ALKALINE PHOSPHATASE 101 IU/L (46-116); ANION GAP 11 (8-16); ASPARTATE AMINO TRANSFERASE 37 U/L (10-37); BILIRUBIN,TOTAL 0.3 MG/DL (0.1-1.0); BLOOD UREA NITROGEN 10 MG/DL (7-18); BUN/CREATININE RATIO 17.5 (5.4-32.0); CALCIUM 8.4 MG/DL (8.5-10.1); CHLORIDE 107 MMOL/L (99-107); CREATININE 0.57 MG/DL (0.60-1.10); GLUCOSE 100 MG/DL (70-104); MAGNESIUM 1.8 MG/DL (1.5-2.4); PHOSPHORUS 3.8 MG/DL (2.3-4.5); POTASSIUM 4.1 MMOL/L (3.5-5.1); SODIUM 144 MMOL/L (135-145); TOTAL CARBON DIOXIDE 26.3 MMOL/L (24-32); TOTAL PROTEIN 6.5 G/DL (6.4-8.2); eGFR > 90 ML/MIN
[2020-12-21 07:43] LABS: TRIGLYCERIDES 131 MG/DL (20-135)
[2020-12-21] MEDS: pantoprazole 40 MG vial IV SCH (08:01)
[2020-12-21] MEDS: docusate sodium 100mg/10ml UD cup PEG SCH ×2 (08:01→20:00)
[2020-12-21] MEDS: cholecalciferol (vitamin D3) 1,000 unit (25mcg) tablet CORPAK SCH (08:01)
[2020-12-21] MEDS: vitamin B comp w/Vit. C tab 1 TAB TABLET PEG SCH (08:02)
[2020-12-21] MEDS: amiodarone 200mg tablet PEG SCH (08:02)
[2020-12-21] MEDS: quetiapine 100mg tablet PEG SCH ×2 (08:02→21:08)
[2020-12-21] MEDS: atorvastatin 20mg tablet PEG SCH (08:02)
[2020-12-21] MEDS: enoxaparin 40mg/0.4ml syringe SUBCUT SCH (08:02)
[2020-12-21] MEDS: nystatin 15 GM powder TP SCH ×3 (08:03→21:09)
--- NOTE | 2020-12-21 16:15 | NUR ---
Patient in room CICU 2010. I have received report from Jamie LUKE and had the opportunity to ask questions and assume patient care.
--- NOTE | 2020-12-21 16:43 | NUR ---
Called Dr. Bardales informed him patient had large black tary and bright red bloody stool Addendum: 12/21/20 at 1645 by Jorje Carlos RN Disregard above note. incorrect
--- NOTE | 2020-12-21 17:00 | NUR ---
Patient now in room 2044 in ICU
--- NOTE | 2020-12-21 18:26 | NUR ---
Problems reprioritized. Patient report given, questions answered & plan of care reviewed with Aracelis LUKE.
[2020-12-21] MEDS ORDERED: VANCOMYCIN LEVEL IV ONE (18:30)
--- NOTE | 2020-12-21 18:30 | NUR ---
Patient in room ICU 2044. I have received report from MARLY Sandoval and had the opportunity to ask questions and assume patient care. Patient is alert and awake on the ventilator with trach. Patient without any complaints at this time.
--- NOTE | 2020-12-21 19:50 | NUR ---
Vancomycin trough, 21.8. Per Pharmacist J Luis okay to give full dose of Vancomycin due now.
--- NOTE | 2020-12-21 20:30 | NUR ---
Pharmacist called regarding patient IV infiltrated Vacoymycin intio the tissues of the left forearm. IV was stopped. Per pharmacist place ice packs on affected area for 20 minutes an hour several times a day for the first 24 hour
[2020-12-21] MEDS: insulin glargine (Lantus) pen - multi-dose SQ SCH (21:48)
[2020-12-22] VITALS (23 sets, daily range): BP systolic 97–133; BP diastolic 53–79
--- NOTE | 2020-12-22 02:40 | NUR ---
Re: 0300 dose of Vancomycin with high Vancomycin through of 21.8. The 1900 dose was administered per pharmacist. PER PHARMACIST: hold current dose. Will re time and adjust dosage for high trough.
[2020-12-22] MEDS ORDERED: vancomycin/NS 1 GM ADD-VANTAGE 250 ML X 1 DOSE IV ONE (04:00)
[2020-12-22 06:12] LABS: EOSINOPHILS # (AUTO) 0.1 X10'3 (0-0.9); HEMOGLOBIN 9.2 g/dl (14.0-17.9); MONOCYTES # (AUTO) 0.5 X10'3 (0-0.9)
[2020-12-22 06:14] LABS: BASOPHILS % (AUTO) 0.3 % (0-1); EOSINOPHILS % (AUTO) 1.2 % (0-6); HEMATOCRIT 28.4 % (42.0-52.0); LYMPHOCYTES # (AUTO) 2.1 X10'3 (1.1-4.8); LYMPHOCYTES % (AUTO) 24.9 % (21-51); MEAN CORPUSCULAR HEMOGLOBIN 30.3 PG (27.0-31.0); MEAN CORPUSCULAR HGB CONC 32.4 g/dL (33.0-36.5); MEAN CORPUSCULAR VOLUME 93.5 FL (78-98); MEAN PLATELET VOLUME 7.7 FL (7.4-10.4); MONOCYTES % (AUTO) 6.2 % (2-12); NEUTROPHILS # (AUTO) 5.6 X10'3 (1.8-7.7); NEUTROPHILS % (AUTO) 67.4 % (42-75); PLATELET COUNT 655 X10'3 (140-440); RED BLOOD COUNT 3.04 X10'6 (4.70-6.10); RED CELL DISTRIBUTION WIDTH 17.3 % (11.5-14.5); WHITE BLOOD COUNT 8.2 X10'3 (4.5-11.0)
--- NOTE | 2020-12-22 06:34 | NUR ---
Problems reprioritized. Patient report given, questions answered & plan of care reviewed with MARLY Miranda.
[2020-12-22 06:37] LABS: ALANINE AMINOTRANSFERASE 81 U/L (12-78); ALBUMIN 1.9 G/DL (3.4-5.0); ALBUMIN/GLOBULIN RATIO 0.4 (1.1-1.5); ALKALINE PHOSPHATASE 94 IU/L (46-116); ANION GAP 8 (8-16); ASPARTATE AMINO TRANSFERASE 39 U/L (10-37); BILIRUBIN,TOTAL 0.2 MG/DL (0.1-1.0); BLOOD UREA NITROGEN 11 MG/DL (7-18); BUN/CREATININE RATIO 19.3 (5.4-32.0); CALCIUM 8.3 MG/DL (8.5-10.1); CHLORIDE 105 MMOL/L (99-107); CREATININE 0.57 MG/DL (0.60-1.10); GLUCOSE 103 MG/DL (70-104); MAGNESIUM 1.7 MG/DL (1.5-2.4); POTASSIUM 3.9 MMOL/L (3.5-5.1); SODIUM 141 MMOL/L (135-145); TOTAL CARBON DIOXIDE 27.9 MMOL/L (24-32); TOTAL PROTEIN 6.5 G/DL (6.4-8.2); TRIGLYCERIDES 188 MG/DL (20-135); eGFR > 90 ML/MIN
[2020-12-22] MEDS: docusate sodium 100mg/10ml UD cup PEG SCH ×2 (08:00→20:00)
[2020-12-22] MEDS: pantoprazole 40 MG vial IV SCH (08:22)
[2020-12-22] MEDS: vitamin B comp w/Vit. C tab 1 TAB TABLET PEG SCH (08:23)
[2020-12-22] MEDS: cholecalciferol (vitamin D3) 1,000 unit (25mcg) tablet CORPAK SCH (08:23)
[2020-12-22] MEDS: amiodarone 200mg tablet PEG SCH (08:23)
[2020-12-22] MEDS: enoxaparin 40mg/0.4ml syringe SUBCUT SCH (08:23)
[2020-12-22] MEDS: quetiapine 100mg tablet PEG SCH ×2 (08:23→20:00)
[2020-12-22] MEDS: atorvastatin 20mg tablet PEG SCH (08:23)
[2020-12-22] MEDS: nystatin 15 GM powder TP SCH ×3 (08:24→20:01)
[2020-12-22] MEDS: insulin regular, human U-100 3ml vial - multi-dose SQ SCH ×2 (08:46→20:22)
--- NOTE | 2020-12-22 11:19 | NUR ---
F/u: Pt tolerating PEG TF at goal GRV WNL. Rectal tube -200ml per RN at rounds. Pt remains NPO given vent-dependent via trach per HOUSEKEEPER notes this AM. Will continue to monitor for TF tolerance and adjustment needs on vent. Rec: 1) Continuous PEG TF using Vital AF with 80 mL/hr goal; to provide 1920 mL volume, 2304 kcal, 1555 mL water, and 144 g protein. 2)Additional 125 mL water flush Q4H; monitor serum Na and adjust as appropriate 3) Consider True ONS given sacral full thickness IAD per WOC; unable to given w/ current free water regimen w/ serum Na 141 this AM 4) PALB q /; daily wts 5) Routine bowel care Addendum: 12/22/20 at [address] Amended: Links added.
[2020-12-22] MEDS: vancomycin/NS 1 GM ADD-VANTAGE 250 ML IV SCH ×2 (13:47→20:00)
--- NOTE | 2020-12-22 18:15 | NUR ---
Patient in room ICU 2044. I have received report from MARLY Miranda and had the opportunity to ask questions and assume patient care.
[2020-12-22] MEDS: insulin glargine (Lantus) pen - multi-dose SQ SCH (20:23)
[2020-12-23] VITALS (24 sets, daily range): BP systolic 95–144; BP diastolic 63–88
--- NOTE | 2020-12-23 01:17 | NUR ---
Patient appear to be sleeping soundly. Tolerating the t-mist system with his trach well.
[2020-12-23] MEDS: insulin regular, human U-100 3ml vial - multi-dose SQ SCH ×4 (02:02→20:33)
[2020-12-23] MEDS ORDERED: VANCOMYCIN LEVEL IV ONE (03:30)
[2020-12-23] MEDS: vancomycin/NS 1 GM ADD-VANTAGE 250 ML IV SCH ×2 (05:38→11:55)
--- NOTE | 2020-12-23 06:21 | NUR ---
Problems reprioritized. Patient report given, questions answered & plan of care reviewed with MARLY Miranda.
[2020-12-23 07:06] LABS: EOSINOPHILS # (AUTO) 0.1 X10'3 (0-0.9); EOSINOPHILS % (AUTO) 1.1 % (0-6); HEMATOCRIT 34.3 % (42.0-52.0); MONOCYTES # (AUTO) 0.7 X10'3 (0-0.9); NEUTROPHILS # (AUTO) 5.8 X10'3 (1.8-7.7)
[2020-12-23 07:10] LABS: BASOPHILS % (AUTO) 0.4 % (0-1); HEMOGLOBIN 11.1 g/dl (14.0-17.9); LYMPHOCYTES # (AUTO) 2.9 X10'3 (1.1-4.8); LYMPHOCYTES % (AUTO) 30.2 % (21-51); MEAN CORPUSCULAR HEMOGLOBIN 30.7 PG (27.0-31.0); MEAN CORPUSCULAR HGB CONC 32.5 g/dL (33.0-36.5); MEAN CORPUSCULAR VOLUME 94.7 FL (78-98); MEAN PLATELET VOLUME 7.9 FL (7.4-10.4); MONOCYTES % (AUTO) 7.4 % (2-12); NEUTROPHILS % (AUTO) 60.9 % (42-75); PLATELET COUNT 782 X10'3 (140-440); RED BLOOD COUNT 3.62 X10'6 (4.70-6.10); RED CELL DISTRIBUTION WIDTH 17.2 % (11.5-14.5); WHITE BLOOD COUNT 9.5 X10'3 (4.5-11.0)
[2020-12-23 07:25] LABS: ALANINE AMINOTRANSFERASE 102 U/L (12-78); ALBUMIN 2.3 G/DL (3.4-5.0); ALBUMIN/GLOBULIN RATIO 0.4 (1.1-1.5); ALKALINE PHOSPHATASE 111 IU/L (46-116); ANION GAP 13 (8-16); ASPARTATE AMINO TRANSFERASE 64 U/L (10-37); BILIRUBIN,TOTAL 0.2 MG/DL (0.1-1.0); BLOOD UREA NITROGEN 12 MG/DL (7-18); BUN/CREATININE RATIO 22.6 (5.4-32.0); CALCIUM 8.6 MG/DL (8.5-10.1); CHLORIDE 105 MMOL/L (99-107); CREATININE 0.53 MG/DL (0.60-1.10); GLUCOSE 104 MG/DL (70-104); MAGNESIUM 2.1 MG/DL (1.5-2.4); PHOSPHORUS 3.6 MG/DL (2.3-4.5); POTASSIUM 4.5 MMOL/L (3.5-5.1); SODIUM 144 MMOL/L (135-145); TOTAL CARBON DIOXIDE 26.5 MMOL/L (24-32); TOTAL PROTEIN 7.6 G/DL (6.4-8.2); VANCOMYCIN,TROUGH 14.5 UG/ML (6.0-14.0); eGFR > 90 ML/MIN
[2020-12-23] MEDS: docusate sodium 100mg/10ml UD cup PEG SCH ×2 (08:00→19:48)
[2020-12-23 08:01] LABS: PLATELET ESTIMATE INCREASED
[2020-12-23 08:02] LABS: ANISOCYTOSIS 1+; POIKILOCYTOSIS FEW; POLYCHROMASIA FEW
[2020-12-23] MEDS: quetiapine 100mg tablet PEG SCH ×2 (08:17→19:48)
[2020-12-23] MEDS: cholecalciferol (vitamin D3) 1,000 unit (25mcg) tablet CORPAK SCH (08:17)
[2020-12-23] MEDS: vitamin B comp w/Vit. C tab 1 TAB TABLET PEG SCH (08:17)
[2020-12-23] MEDS: pantoprazole 40 MG vial IV SCH (08:17)
[2020-12-23] MEDS: atorvastatin 20mg tablet PEG SCH (08:17)
[2020-12-23] MEDS: amiodarone 200mg tablet PEG SCH (08:17)
[2020-12-23] MEDS: enoxaparin 40mg/0.4ml syringe SUBCUT SCH (08:18)
[2020-12-23] MEDS: nystatin 15 GM powder TP SCH ×3 (08:18→20:12)
[2020-12-23] MEDS: fentaNYL 25MCG/hour patch.TD72 TD SCH (13:41)
[2020-12-23 17:21] LABS: PREALBUMIN 15.2 MG/DL (19-36)
--- NOTE | 2020-12-23 18:43 | NUR ---
Patient in room ICU 2044. I have received report from MARLY Miranda and had the opportunity to ask questions and assume patient care.
[2020-12-23] MEDS: VANCOmycin 1250MG/NS 250ml Bag 250 ML IV SCH (19:47)
[2020-12-23] MEDS: insulin glargine (Lantus) pen - multi-dose SQ SCH (21:29)
[2020-12-24] VITALS (24 sets, daily range): BP systolic 103–134; BP diastolic 55–75
--- NOTE | 2020-12-24 02:28 | NUR ---
Unused 25 mcg FentaNYL patch found in bed with pt. Pt currently has 25 mcg FentaNYL patch on left shoulder placed 8-4 by MARLY Miranda. PT mouthed that the day nurse had lost the patch referring to the one I had found, unused patch was witnessed by Martín LUKE. Called Pharmacy spoke to Jarek about wasting unused patch and will document on EMAR.
--- NOTE | 2020-12-24 02:41 | NUR ---
Unused 25 mcg FentaNYL patch wasted with charge DENISE RN and documented on EMAR
[2020-12-24] MEDS: VANCOmycin 1250MG/NS 250ml Bag 250 ML IV SCH ×3 (03:19→20:32)
--- NOTE | 2020-12-24 06:16 | NUR ---
Problems reprioritized. Patient report given, questions answered & plan of care reviewed with MARLY Stock.
--- NOTE | 2020-12-24 06:17 | NUR ---
Patient in room ICU 2044. I have received report from Mera LUKE and had the opportunity to ask questions and assume patient care.
[2020-12-24 06:34] LABS: ALANINE AMINOTRANSFERASE 92 U/L (12-78); ALBUMIN 2.2 G/DL (3.4-5.0); ALBUMIN/GLOBULIN RATIO 0.5 (1.1-1.5); ALKALINE PHOSPHATASE 96 IU/L (46-116); ANION GAP 9 (8-16); ASPARTATE AMINO TRANSFERASE 54 U/L (10-37); BILIRUBIN,TOTAL 0.2 MG/DL (0.1-1.0); BLOOD UREA NITROGEN 15 MG/DL (7-18); CALCIUM 8.4 MG/DL (8.5-10.1); CHLORIDE 103 MMOL/L (99-107); GLUCOSE 169 MG/DL (70-104); MAGNESIUM 1.9 MG/DL (1.5-2.4); SODIUM 138 MMOL/L (135-145); TOTAL CARBON DIOXIDE 25.8 MMOL/L (24-32); TOTAL PROTEIN 6.8 G/DL (6.4-8.2); eGFR > 90 ML/MIN
[2020-12-24 06:37] LABS: EOSINOPHILS # (AUTO) 0.1 X10'3 (0-0.9); HEMOGLOBIN 10.5 g/dl (14.0-17.9); MEAN PLATELET VOLUME 7.6 FL (7.4-10.4); MONOCYTES # (AUTO) 0.7 X10'3 (0-0.9); NEUTROPHILS % (AUTO) 64.3 % (42-75)
[2020-12-24 06:38] LABS: BASOPHILS % (AUTO) 0.3 % (0-1); EOSINOPHILS % (AUTO) 1.1 % (0-6); HEMATOCRIT 33.1 % (42.0-52.0); LYMPHOCYTES # (AUTO) 2.2 X10'3 (1.1-4.8); LYMPHOCYTES % (AUTO) 25.6 % (21-51); MEAN CORPUSCULAR HEMOGLOBIN 29.9 PG (27.0-31.0); MEAN CORPUSCULAR HGB CONC 31.7 g/dL (33.0-36.5); MEAN CORPUSCULAR VOLUME 94.3 FL (78-98); MONOCYTES % (AUTO) 8.7 % (2-12); NEUTROPHILS # (AUTO) 5.5 X10'3 (1.8-7.7); PLATELET COUNT 699 X10'3 (140-440); RED BLOOD COUNT 3.51 X10'6 (4.70-6.10); RED CELL DISTRIBUTION WIDTH 17.2 % (11.5-14.5); WHITE BLOOD COUNT 8.5 X10'3 (4.5-11.0)
[2020-12-24 07:31] LABS: ANISOCYTOSIS 1+; PLATELET ESTIMATE INCREASED; TOTAL CELLS COUNTED 100
[2020-12-24 07:32] LABS: BURR CELLS 1+; POLYCHROMASIA 1+
[2020-12-24] MEDS: quetiapine 100mg tablet PEG SCH ×2 (07:32→20:32)
[2020-12-24] MEDS: vitamin B comp w/Vit. C tab 1 TAB TABLET PEG SCH (07:32)
[2020-12-24] MEDS: enoxaparin 40mg/0.4ml syringe SUBCUT SCH (07:32)
[2020-12-24] MEDS: cholecalciferol (vitamin D3) 1,000 unit (25mcg) tablet CORPAK SCH (07:32)
[2020-12-24] MEDS: pantoprazole 40 MG vial IV SCH (07:32)
[2020-12-24] MEDS: nystatin 15 GM powder TP SCH ×3 (07:33→20:32)
[2020-12-24] MEDS: atorvastatin 20mg tablet PEG SCH (07:33)
[2020-12-24] MEDS: amiodarone 200mg tablet PEG SCH (07:33)
[2020-12-24] MEDS: docusate sodium 100mg/10ml UD cup PEG SCH ×2 (07:33→20:00)
[2020-12-24 07:47] LABS: MEGAKARYOCYTE FRAGMENTS RARE
[2020-12-24] MEDS: insulin regular, human U-100 3ml vial - multi-dose SQ SCH ×3 (08:20→20:40)
--- NOTE | 2020-12-24 18:10 | NUR ---
Problems reprioritized. Patient report given, questions answered & plan of care reviewed with Rosanna LUKE.
--- NOTE | 2020-12-24 18:15 | NUR ---
Patient in room ICU 2044. I have received report from MARLY Stock and had the opportunity to ask questions and assume patient care. Patient laying comfortably on hospital bed, A&Ox3 and doing well.
[2020-12-24] MEDS ORDERED: VANCOMYCIN LEVEL IV ONE (19:30)
--- NOTE | 2020-12-24 20:10 | NUR ---
Patient Vanco level is high at 14.1, I cld pharmacy and per Pharmacist ok to give 2000 Vanco dose.
[2020-12-24] MEDS: lactobacillus rhamnosus 10,000 MMU CELLS/CAPSULE PEG SCH (20:32)
[2020-12-24] MEDS: insulin glargine (Lantus) pen - multi-dose SQ SCH (20:41)
[2020-12-25] VITALS (24 sets, daily range): BP systolic 91–126; BP diastolic 45–79
[2020-12-25] MEDS: insulin regular, human U-100 3ml vial - multi-dose SQ SCH ×3 (02:27→14:18)
[2020-12-25] MEDS: VANCOmycin 1250MG/NS 250ml Bag 250 ML IV SCH (04:47)
--- NOTE | 2020-12-25 06:00 | NUR ---
Patient in room ICU 2044. I have received report from Rosanna LUKE and had the opportunity to ask questions and assume patient care.
--- NOTE | 2020-12-25 06:14 | NUR ---
Problems reprioritized. Patient report given, questions answered & plan of care reviewed with MARLY Stock.
--- NOTE | 2020-12-25 06:20 | NUR ---
Patient in room ICU 2044. I have received report from Rosanna LUKE and had the opportunity to ask questions and assume patient care.
[2020-12-25 06:34] LABS: EOSINOPHILS # (AUTO) 0.1 X10'3 (0-0.9); EOSINOPHILS % (AUTO) 1.2 % (0-6); HEMOGLOBIN 11.3 g/dl (14.0-17.9); MONOCYTES # (AUTO) 0.6 X10'3 (0-0.9); WHITE BLOOD COUNT 7.8 X10'3 (4.5-11.0)
[2020-12-25 06:36] LABS: BASOPHILS % (AUTO) 0.4 % (0-1); HEMATOCRIT 34.2 % (42.0-52.0); LYMPHOCYTES # (AUTO) 2.2 X10'3 (1.1-4.8); LYMPHOCYTES % (AUTO) 27.8 % (21-51); MEAN CORPUSCULAR HEMOGLOBIN 30.9 PG (27.0-31.0); MEAN CORPUSCULAR HGB CONC 33.1 g/dL (33.0-36.5); MEAN CORPUSCULAR VOLUME 93.2 FL (78-98); MEAN PLATELET VOLUME 7.6 FL (7.4-10.4); MONOCYTES % (AUTO) 8.3 % (2-12); NEUTROPHILS # (AUTO) 4.9 X10'3 (1.8-7.7); NEUTROPHILS % (AUTO) 62.3 % (42-75); PLATELET COUNT 619 X10'3 (140-440); RED BLOOD COUNT 3.67 X10'6 (4.70-6.10); RED CELL DISTRIBUTION WIDTH 17.6 % (11.5-14.5)
[2020-12-25 06:50] LABS: ALANINE AMINOTRANSFERASE 88 U/L (12-78); ALBUMIN 2.4 G/DL (3.4-5.0); ALBUMIN/GLOBULIN RATIO 0.5 (1.1-1.5); ALKALINE PHOSPHATASE 93 IU/L (46-116); ANION GAP 8 (8-16); ASPARTATE AMINO TRANSFERASE 48 U/L (10-37); BILIRUBIN,TOTAL 0.2 MG/DL (0.1-1.0); BLOOD UREA NITROGEN 13 MG/DL (7-18); BUN/CREATININE RATIO 23.6 (5.4-32.0); CALCIUM 8.5 MG/DL (8.5-10.1); CHLORIDE 105 MMOL/L (99-107); CREATININE 0.55 MG/DL (0.60-1.10); GLUCOSE 128 MG/DL (70-104); PHOSPHORUS 3.7 MG/DL (2.3-4.5); POTASSIUM 4.2 MMOL/L (3.5-5.1); SODIUM 141 MMOL/L (135-145); TOTAL CARBON DIOXIDE 27.6 MMOL/L (24-32); TOTAL PROTEIN 7.3 G/DL (6.4-8.2); eGFR > 90 ML/MIN
[2020-12-25] MEDS: pantoprazole 40 MG vial IV SCH (07:43)
[2020-12-25] MEDS: cholecalciferol (vitamin D3) 1,000 unit (25mcg) tablet CORPAK SCH (07:44)
[2020-12-25] MEDS: vitamin B comp w/Vit. C tab 1 TAB TABLET PEG SCH (07:44)
[2020-12-25] MEDS: enoxaparin 40mg/0.4ml syringe SUBCUT SCH (07:44)
[2020-12-25] MEDS: atorvastatin 20mg tablet PEG SCH (07:44)
[2020-12-25] MEDS: amiodarone 200mg tablet PEG SCH (07:44)
[2020-12-25] MEDS: lactobacillus rhamnosus 10,000 MMU CELLS/CAPSULE PEG SCH ×2 (07:44→21:16)
[2020-12-25] MEDS: quetiapine 100mg tablet PEG SCH ×2 (07:44→21:16)
[2020-12-25] MEDS: nystatin 15 GM powder TP SCH ×3 (07:45→21:17)
[2020-12-25 07:58] LABS: ANISOCYTOSIS 1+; PLATELET ESTIMATE INCREASED; TOTAL CELLS COUNTED 100
[2020-12-25 07:59] LABS: BURR CELLS 1+; GIANT PLATELET FEW; POLYCHROMASIA 1+; ROULEAUX 1+
[2020-12-25] MEDS: docusate sodium 100mg/10ml UD cup PEG SCH ×2 (08:00→20:00)
--- NOTE | 2020-12-25 11:08 | NUR ---
F/u 12/25: Pt now off vent support using passy-stephanie valve per RN today. Tolerating TF at goal though noted 940ml rectal tube output yesterday w/ metamucil HS to start today and colace held per EMR. Given stool volume and no longer vent dependent will adjust TF formula to less elementary; updated recs below. RD d/w RN new TF recs. RN today reports pt IAD more consistent w/ skin tear and not full thickness injury; True ONS no longer indicated. Will monitor for TF tolerance and adjustment needs as medically indicated. Rec: 1) Continuous PEG TF using Glucerna 1.2 at 85 mL/hr goal; to provide 2040mL volume, 2448 kcals, 1652mL water, and 122g protein. 2) Additional 125 mL water flush Q4H; monitor serum Na and adjust as appropriate 3) PALB q /; daily wts 4) Monitor for TF tolerance 5) bowel care per rx; consider anti-diarrheal if diarrhea persists Addendum: 12/25/20 at [address] Amended: Links added.
[2020-12-25 13:19] LABS: PREALBUMIN 17.3 MG/DL (19-36)
--- NOTE | 2020-12-25 18:13 | NUR ---
Problems reprioritized. Patient report given, questions answered & plan of care reviewed with Heidi LUKE.
[2020-12-25] MEDS: psyllium seed 3.4 gm packet PEG SCH (21:16)
[2020-12-25] MEDS: insulin glargine (Lantus) pen - multi-dose SQ SCH (21:51)
[2020-12-26] VITALS (26 sets, daily range): BP systolic 100–136; BP diastolic 60–79
[2020-12-26 05:41] LABS: BASOPHILS % (AUTO) 0.5 % (0-1); EOSINOPHILS # (AUTO) 0.1 X10'3 (0-0.9); EOSINOPHILS % (AUTO) 1.2 % (0-6); HEMATOCRIT 34.7 % (42.0-52.0); HEMOGLOBIN 11.5 g/dl (14.0-17.9); LYMPHOCYTES # (AUTO) 2.3 X10'3 (1.1-4.8); LYMPHOCYTES % (AUTO) 31.3 % (21-51); MEAN CORPUSCULAR HEMOGLOBIN 31.1 PG (27.0-31.0); MEAN CORPUSCULAR HGB CONC 33.1 g/dL (33.0-36.5); MEAN CORPUSCULAR VOLUME 93.9 FL (78-98); MEAN PLATELET VOLUME 7.7 FL (7.4-10.4); MONOCYTES # (AUTO) 0.8 X10'3 (0-0.9); MONOCYTES % (AUTO) 10.4 % (2-12); NEUTROPHILS # (AUTO) 4.2 X10'3 (1.8-7.7); NEUTROPHILS % (AUTO) 56.6 % (42-75); PLATELET COUNT 590 X10'3 (140-440); RED CELL DISTRIBUTION WIDTH 17.7 % (11.5-14.5); WHITE BLOOD COUNT 7.4 X10'3 (4.5-11.0)
[2020-12-26 06:11] LABS: ALANINE AMINOTRANSFERASE 85 U/L (12-78); ALBUMIN 2.5 G/DL (3.4-5.0); ALBUMIN/GLOBULIN RATIO 0.5 (1.1-1.5); ALKALINE PHOSPHATASE 93 IU/L (46-116); ANION GAP 5 (8-16); ASPARTATE AMINO TRANSFERASE 36 U/L (10-37); BILIRUBIN,TOTAL 0.2 MG/DL (0.1-1.0); BLOOD UREA NITROGEN 15 MG/DL (7-18); BUN/CREATININE RATIO 24.6 (5.4-32.0); CALCIUM 8.5 MG/DL (8.5-10.1); CHLORIDE 105 MMOL/L (99-107); CREATININE 0.61 MG/DL (0.60-1.10); GLUCOSE 155 MG/DL (70-104); PHOSPHORUS 3.9 MG/DL (2.3-4.5); POTASSIUM 4.2 MMOL/L (3.5-5.1); SODIUM 139 MMOL/L (135-145); TOTAL CARBON DIOXIDE 29.1 MMOL/L (24-32); TOTAL PROTEIN 7.2 G/DL (6.4-8.2); eGFR > 90 ML/MIN
--- NOTE | 2020-12-26 06:30 | NUR ---
Patient in room ICU 2044. I have received report from DARRIN RN and had the opportunity to ask questions and assume patient care. Pt supine in bed, alert to voice, lips speech secondary to trach. Safety measures in place. no s/sx acute distress. breathing even and non labored at this time.
[2020-12-26] MEDS: cholecalciferol (vitamin D3) 1,000 unit (25mcg) tablet CORPAK SCH (08:49)
[2020-12-26] MEDS: docusate sodium 100mg/10ml UD cup PEG SCH ×2 (08:49→20:00)
[2020-12-26] MEDS: amiodarone 200mg tablet PEG SCH (08:49)
[2020-12-26] MEDS: pantoprazole 40 MG vial IV SCH (08:49)
[2020-12-26] MEDS: vitamin B comp w/Vit. C tab 1 TAB TABLET PEG SCH (08:50)
[2020-12-26] MEDS: lactobacillus rhamnosus 10,000 MMU CELLS/CAPSULE PEG SCH ×2 (08:50→20:13)
[2020-12-26] MEDS: atorvastatin 20mg tablet PEG SCH (08:50)
[2020-12-26] MEDS: nystatin 15 GM powder TP SCH ×3 (08:50→20:13)
[2020-12-26] MEDS: quetiapine 100mg tablet PEG SCH ×2 (08:50→20:13)
[2020-12-26 09:32] LABS: PLATELET ESTIMATE INCREASED; TOTAL CELLS COUNTED 100
[2020-12-26 09:33] LABS: ANISOCYTOSIS 1+; GIANT PLATELET FEW
[2020-12-26] MEDS ORDERED: VANCOMYCIN LEVEL IV ONE (11:30)
[2020-12-26] MEDS: enoxaparin 40mg/0.4ml syringe SUBCUT SCH (12:44)
[2020-12-26] MEDS: fentaNYL 25MCG/hour patch.TD72 TD SCH (13:06)
[2020-12-26] MEDS: insulin regular, human U-100 3ml vial - multi-dose SQ SCH ×2 (14:45→20:26)
--- NOTE | 2020-12-26 17:30 | NUR ---
[facility]. tomorrow, therefore Dr. Bardales make pt NPO after 8 AM 12/27/20
--- NOTE | 2020-12-26 18:25 | NUR ---
Problems reprioritized. Patient report given, questions answered & plan of care reviewed with Criselda LUKE. pt alert, no sob, texting on phone, supine in bed with HOB at 30 degreees. no s/sx acute distress
[2020-12-26] MEDS: psyllium seed 3.4 gm packet PEG SCH (20:13)
[2020-12-26] MEDS: insulin glargine (Lantus) pen - multi-dose SQ SCH (20:27)
[2020-12-26] MEDS: morphine 2 MG/ML inj. syringe IV PRN (21:09)
[2020-12-27] VITALS (24 sets, daily range): BP systolic 86–129; BP diastolic 57–79
[2020-12-27] MEDS: insulin regular, human U-100 3ml vial - multi-dose SQ SCH ×2 (02:18→22:21)
[2020-12-27 06:09] LABS: EOSINOPHILS # (AUTO) 0.1 X10'3 (0-0.9); MEAN CORPUSCULAR VOLUME 92.5 FL (78-98); MEAN PLATELET VOLUME 7.5 FL (7.4-10.4); NEUTROPHILS # (AUTO) 4.4 X10'3 (1.8-7.7)
[2020-12-27 06:11] LABS: BASOPHILS % (AUTO) 0.4 % (0-1); EOSINOPHILS % (AUTO) 1.1 % (0-6); HEMATOCRIT 33.2 % (42.0-52.0); HEMOGLOBIN 11.1 g/dl (14.0-17.9); LYMPHOCYTES # (AUTO) 2.7 X10'3 (1.1-4.8); MEAN CORPUSCULAR HEMOGLOBIN 30.8 PG (27.0-31.0); MEAN CORPUSCULAR HGB CONC 33.3 g/dL (33.0-36.5); MONOCYTES # (AUTO) 0.9 X10'3 (0-0.9); MONOCYTES % (AUTO) 10.8 % (2-12); NEUTROPHILS % (AUTO) 54.7 % (42-75); PLATELET COUNT 598 X10'3 (140-440); RED BLOOD COUNT 3.59 X10'6 (4.70-6.10)
[2020-12-27 06:30] LABS: ALANINE AMINOTRANSFERASE 75 U/L (12-78); ALBUMIN 2.5 G/DL (3.4-5.0); ALBUMIN/GLOBULIN RATIO 0.6 (1.1-1.5); ALKALINE PHOSPHATASE 94 IU/L (46-116); ANION GAP 10 (8-16); ASPARTATE AMINO TRANSFERASE 33 U/L (10-37); BILIRUBIN,TOTAL 0.2 MG/DL (0.1-1.0); BLOOD UREA NITROGEN 18 MG/DL (7-18); CALCIUM 8.7 MG/DL (8.5-10.1); CHLORIDE 104 MMOL/L (99-107); CREATININE 0.53 MG/DL (0.60-1.10); GLUCOSE 120 MG/DL (70-104); PHOSPHORUS 5.2 MG/DL (2.3-4.5); SODIUM 141 MMOL/L (135-145); TOTAL CARBON DIOXIDE 26.8 MMOL/L (24-32); eGFR > 90 ML/MIN
--- NOTE | 2020-12-27 06:34 | NUR ---
Problems reprioritized. Patient report given, questions answered & plan of care reviewed with MARLY Galvez.
[2020-12-27] MEDS: pantoprazole 40 MG vial IV SCH (08:00)
[2020-12-27] MEDS: docusate sodium 100mg/10ml UD cup PEG SCH ×2 (08:00→20:00)
--- NOTE | 2020-12-27 08:10 | NUR ---
Tube feeding stopped @1809 prior to Bronchoscopy procedure today. Addendum: 12/27/20 at 0852 by Lenny Burgos RN Tube feeding stopped @809 prior to Bronchoscopy procedure today.
[2020-12-27] MEDS: nystatin 15 GM powder TP SCH ×3 (09:59→22:13)
[2020-12-27] MEDS: vitamin B comp w/Vit. C tab 1 TAB TABLET PEG SCH (10:00)
[2020-12-27] MEDS: lactobacillus rhamnosus 10,000 MMU CELLS/CAPSULE PEG SCH ×2 (10:00→22:12)
[2020-12-27] MEDS: cholecalciferol (vitamin D3) 1,000 unit (25mcg) tablet CORPAK SCH (10:00)
[2020-12-27] MEDS: enoxaparin 40mg/0.4ml syringe SUBCUT SCH (10:00)
[2020-12-27] MEDS: quetiapine 100mg tablet PEG SCH ×2 (10:01→22:12)
[2020-12-27] MEDS: atorvastatin 20mg tablet PEG SCH (10:01)
[2020-12-27] MEDS: amiodarone 200mg tablet PEG SCH (10:01)
[2020-12-27 12:39] LABS: PLATELET ESTIMATE INCREASED; POLYCHROMASIA 1+; TOTAL CELLS COUNTED 100
[2020-12-27 12:42] LABS: ANISOCYTOSIS 1+; TEAR DROP CELLS FEW
[2020-12-27 12:43] LABS: GIANT PLATELET FEW
[2020-12-27 12:44] LABS: POIKILOCYTOSIS FEW
--- NOTE | 2020-12-27 14:57 | NUR ---
PRESSURE ULCER EDUCATION: DEFINITION: A pressure ulcer is an area of skin that breaks down when you stay in one position too long. The constant pressure against the skin reduces the blood flow to that area and the affected tissue dies. CAUSES: "Being bedridden or in a wheelchair "Fragile skin "Having a chronic condition, such as diabetes or vascular disease "Inability to move certain parts of your body without assistance "Older age "Incontinence of urine or stool SYMPTOMS: "A reddened area that DOES NOT turn white when pressed on - this can be the beginning of a pressure ulcer "A blister, deep sore or a crater - these can be advanced pressure ulcers FIRST AID: "Relieve the pressure on this area "Keep the area clean and dry "Call your primary doctor if you see any of the above symptoms "DO NOT massage the area "DO NOT use a donut shaped or ring shaped pillow- these actually interfere with the blood flow and cause complications PREVENTION: "Check for pressure ulcers everyday "Change position at least every two hours to relieve pressure "Use items that help relieve pressure- pillows, sheepskin, foam padding, and powders. "Keep skin clean and dry "Eat healthy well balanced meals "Exercise daily IF YOU SEE ANY OF THESE SYMPTOMS WHILE IN THE HOSPITAL - TELL YOUR NURSE IMMEDIATELY. IF YOU SEE ANY OF THESE SYMPTOMS WHILE AT HOME OR HAVE ANY QUESTIONS OR CONCERNS ABOUT PRESSURE ULCERS - CALL YOUR PRIMARY DOCTOR IMMEDIATELY. Addendum: 12/27/20 at 1458 by Teresa Sam RN Amended: Links added.
[2020-12-27] MEDS ORDERED: midazolam 1 mg/ML 2ml injection ONE ×2 (16:49→16:50)
[2020-12-27] MEDS ORDERED: fentaNYL/PF 50MCG/1 ML 2ML syringe ONE (16:50)
[2020-12-27] MEDS ORDERED: LIDOcaine 4% (40 mg/ml) topical solution 50ml MM ONE (16:55)
[2020-12-27] MEDS ORDERED: fentaNYL/PF 50MCG/1 ML 2ML syringe IV ONE (16:55)
[2020-12-27] MEDS ORDERED: MIDAZolam 5mg/ml 2ml vial IV ONE (16:55)
[2020-12-27] MEDS ORDERED: LIDOCAINE 4% (40MG/ML) topical solution 50ml **BRONCH ONLY ONE (16:57)
--- NOTE | 2020-12-27 18:08 | NUR ---
Atomized 4% topical lidocaine given by Dr Belcher Addendum: 12/27/20 at 1810 by Miroslava Che RT Amended: Links added.
[2020-12-27] MEDS: psyllium seed 3.4 gm packet PEG SCH (20:20)
[2020-12-27] MEDS: insulin glargine (Lantus) pen - multi-dose SQ SCH (22:19)
[2020-12-28] VITALS (23 sets, daily range): BP systolic 99–125; BP diastolic 59–81
[2020-12-28] MEDS: insulin regular, human U-100 3ml vial - multi-dose SQ SCH ×2 (03:34→23:49)
[2020-12-28 04:00] LABS: BASOPHILS % (AUTO) 0.5 % (0-1); EOSINOPHILS # (AUTO) 0.1 X10'3 (0-0.9); EOSINOPHILS % (AUTO) 1.4 % (0-6); HEMATOCRIT 34.1 % (42.0-52.0); LYMPHOCYTES # (AUTO) 2.4 X10'3 (1.1-4.8); LYMPHOCYTES % (AUTO) 31.4 % (21-51); MEAN CORPUSCULAR HEMOGLOBIN 30.2 PG (27.0-31.0); MEAN CORPUSCULAR HGB CONC 32.2 g/dL (33.0-36.5); MEAN CORPUSCULAR VOLUME 93.7 FL (78-98); MEAN PLATELET VOLUME 7.5 FL (7.4-10.4); MONOCYTES # (AUTO) 0.8 X10'3 (0-0.9); MONOCYTES % (AUTO) 10.9 % (2-12); NEUTROPHILS # (AUTO) 4.3 X10'3 (1.8-7.7); NEUTROPHILS % (AUTO) 55.8 % (42-75); PLATELET COUNT 557 X10'3 (140-440); RED BLOOD COUNT 3.64 X10'6 (4.70-6.10); RED CELL DISTRIBUTION WIDTH 18.3 % (11.5-14.5); WHITE BLOOD COUNT 7.8 X10'3 (4.5-11.0)
[2020-12-28 04:21] LABS: ALANINE AMINOTRANSFERASE 79 U/L (12-78); ALBUMIN 2.6 G/DL (3.4-5.0); ALBUMIN/GLOBULIN RATIO 0.6 (1.1-1.5); ALKALINE PHOSPHATASE 99 IU/L (46-116); ANION GAP 8 (8-16); ASPARTATE AMINO TRANSFERASE 36 U/L (10-37); BILIRUBIN,TOTAL 0.2 MG/DL (0.1-1.0); BLOOD UREA NITROGEN 15 MG/DL (7-18); BUN/CREATININE RATIO 26.3 (5.4-32.0); CALCIUM 8.8 MG/DL (8.5-10.1); CHLORIDE 104 MMOL/L (99-107); CREATININE 0.57 MG/DL (0.60-1.10); GLUCOSE 113 MG/DL (70-104); PHOSPHORUS 5.5 MG/DL (2.3-4.5); POTASSIUM 3.9 MMOL/L (3.5-5.1); SODIUM 139 MMOL/L (135-145); TOTAL CARBON DIOXIDE 26.6 MMOL/L (24-32); eGFR > 90 ML/MIN
[2020-12-28] MEDS: docusate sodium 100mg/10ml UD cup PEG SCH ×2 (09:04→20:00)
[2020-12-28] MEDS: enoxaparin 40mg/0.4ml syringe SUBCUT SCH (09:04)
[2020-12-28] MEDS: pantoprazole 40 MG vial IV SCH (09:05)
[2020-12-28] MEDS: nystatin 15 GM powder TP SCH ×3 (09:05→23:06)
[2020-12-28] MEDS: vitamin B comp w/Vit. C tab 1 TAB TABLET PEG SCH (09:06)
[2020-12-28] MEDS: lactobacillus rhamnosus 10,000 MMU CELLS/CAPSULE PEG SCH ×2 (09:06→23:05)
[2020-12-28] MEDS: cholecalciferol (vitamin D3) 1,000 unit (25mcg) tablet CORPAK SCH (09:06)
[2020-12-28] MEDS: quetiapine 100mg tablet PEG SCH ×2 (09:07→23:05)
[2020-12-28] MEDS: atorvastatin 20mg tablet PEG SCH (09:07)
[2020-12-28] MEDS: amiodarone 200mg tablet PEG SCH (09:13)
--- NOTE | 2020-12-28 11:09 | NUR ---
F/u 12/28: Pt PO 0% full liquids though meeting needs via PEG feeds. LBM 12/26 -300ml rectal tube down from prior 940ml output 12/24 receiving metamucil and colace daily. Noted pt Phos 5.5 up from 5.2 yesterday and on vitamin D3 2000 units daily since 11/21; will monitor for Phos trends and vitamin supplementation needs. Noted full thickness sulcus IAD w/ rectal tube in place leaking at times per WOC note yesterday. Will continue to monitor. Rec: 1) Continuous PEG TF using Glucerna 1.2 at 85 mL/hr goal; to provide 2040mL volume, 2448 kcals, 1652mL water, and 122g protein. 2) Additional 125 mL water flush Q4H; monitor serum Na and adjust as appropriate 3) PALB q /; daily wts 4) Monitor for True ONS needs given full thickness sulcus IAD; unable to given w/ current free water recs. Consider PO ONS once PO diet tolerance improves 5) bowel care per rx; daily anti-diarrheal per MD; consider holding routine bowel care if rectal tube output increases Addendum: 12/28/20 at [address] Amended: Links added.
[2020-12-28] MEDS: acetaminophen 325mg/10.15ml oral unit dose solution PEG PRN (15:03)
[2020-12-28] MEDS: psyllium seed 3.4 gm packet PEG SCH (21:00)
[2020-12-28] MEDS: insulin glargine (Lantus) pen - multi-dose SQ SCH (23:48)
[2020-12-29] VITALS (21 sets, daily range): BP systolic 97–119; BP diastolic 62–82
[2020-12-29] MEDS: insulin regular, human U-100 3ml vial - multi-dose SQ SCH ×3 (04:11→20:29)
[2020-12-29 04:55] LABS: BASOPHILS % (AUTO) 0.6 % (0-1); EOSINOPHILS # (AUTO) 0.1 X10'3 (0-0.9); EOSINOPHILS % (AUTO) 1.8 % (0-6); HEMATOCRIT 34.3 % (42.0-52.0); HEMOGLOBIN 11.6 g/dl (14.0-17.9); LYMPHOCYTES # (AUTO) 2.8 X10'3 (1.1-4.8); LYMPHOCYTES % (AUTO) 37.7 % (21-51); MEAN CORPUSCULAR HGB CONC 33.9 g/dL (33.0-36.5); MEAN CORPUSCULAR VOLUME 91.5 FL (78-98); MEAN PLATELET VOLUME 7.5 FL (7.4-10.4); MONOCYTES # (AUTO) 0.8 X10'3 (0-0.9); MONOCYTES % (AUTO) 10.9 % (2-12); NEUTROPHILS # (AUTO) 3.6 X10'3 (1.8-7.7); PLATELET COUNT 500 X10'3 (140-440); RED BLOOD COUNT 3.74 X10'6 (4.70-6.10); RED CELL DISTRIBUTION WIDTH 17.9 % (11.5-14.5); WHITE BLOOD COUNT 7.4 X10'3 (4.5-11.0)
[2020-12-29 05:17] LABS: ALANINE AMINOTRANSFERASE 73 U/L (12-78); ALBUMIN 2.7 G/DL (3.4-5.0); ALBUMIN/GLOBULIN RATIO 0.6 (1.1-1.5); ALKALINE PHOSPHATASE 107 IU/L (46-116); ANION GAP 8 (8-16); ASPARTATE AMINO TRANSFERASE 28 U/L (10-37); BILIRUBIN,TOTAL 0.2 MG/DL (0.1-1.0); BLOOD UREA NITROGEN 14 MG/DL (7-18); BUN/CREATININE RATIO 21.2 (5.4-32.0); CALCIUM 9.6 MG/DL (8.5-10.1); CHLORIDE 103 MMOL/L (99-107); CREATININE 0.66 MG/DL (0.60-1.10); GLUCOSE 116 MG/DL (70-104); MAGNESIUM 2.2 MG/DL (1.5-2.4); PHOSPHORUS 5.8 MG/DL (2.3-4.5); POTASSIUM 4.4 MMOL/L (3.5-5.1); SODIUM 139 MMOL/L (135-145); TOTAL CARBON DIOXIDE 27.7 MMOL/L (24-32); TOTAL PROTEIN 7.5 G/DL (6.4-8.2); TRIGLYCERIDES 242 MG/DL (20-135); eGFR > 90 ML/MIN
[2020-12-29] MEDS: vitamin B comp w/Vit. C tab 1 TAB TABLET PEG SCH (09:37)
[2020-12-29] MEDS: amiodarone 200mg tablet PEG SCH (09:37)
[2020-12-29] MEDS: lactobacillus rhamnosus 10,000 MMU CELLS/CAPSULE PEG SCH ×2 (09:37→20:26)
[2020-12-29] MEDS: docusate sodium 100mg/10ml UD cup PEG SCH ×2 (09:37→20:26)
[2020-12-29] MEDS: pantoprazole 40 MG vial IV SCH (09:37)
[2020-12-29] MEDS: enoxaparin 40mg/0.4ml syringe SUBCUT SCH (09:38)
[2020-12-29] MEDS: cholecalciferol (vitamin D3) 1,000 unit (25mcg) tablet CORPAK SCH (09:38)
[2020-12-29] MEDS: nystatin 15 GM powder TP SCH ×3 (09:43→21:44)
[2020-12-29] MEDS: quetiapine 100mg tablet PEG SCH ×2 (09:52→20:26)
[2020-12-29] MEDS: atorvastatin 20mg tablet PEG SCH (09:52)
[2020-12-29] MEDS: acetaminophen 325mg/10.15ml oral unit dose solution PEG PRN (09:54)
[2020-12-29] MEDS: fentaNYL 25MCG/hour patch.TD72 TD SCH (13:46)
--- NOTE | 2020-12-29 18:30 | NUR ---
Patient in room ICU 2044. I have received report from Jaren LUKE and had the opportunity to ask questions and assume patient care.
[2020-12-29] MEDS: psyllium seed 3.4 gm packet PEG SCH (21:00)
[2020-12-29] MEDS: insulin glargine (Lantus) pen - multi-dose SQ SCH (21:19)
[2020-12-30] VITALS (21 sets, daily range): BP systolic 90–119; BP diastolic 58–79
[2020-12-30] MEDS: acetaminophen 325mg/10.15ml oral unit dose solution PEG PRN ×2 (02:11→09:52)
[2020-12-30] MEDS: insulin regular, human U-100 3ml vial - multi-dose SQ SCH ×3 (02:21→20:35)
--- NOTE | 2020-12-30 06:15 | NUR ---
Problems reprioritized. Patient report given, questions answered & plan of care reviewed with Jaren LUKE.
[2020-12-30] MEDS: pantoprazole 40 MG vial IV SCH (08:16)
[2020-12-30] MEDS: quetiapine 100mg tablet PEG SCH ×2 (08:16→20:29)
[2020-12-30] MEDS: vitamin B comp w/Vit. C tab 1 TAB TABLET PEG SCH (08:16)
[2020-12-30] MEDS: docusate sodium 100mg/10ml UD cup PEG SCH ×2 (08:16→20:29)
[2020-12-30] MEDS: atorvastatin 20mg tablet PEG SCH (08:16)
[2020-12-30] MEDS: amiodarone 200mg tablet PEG SCH (08:16)
[2020-12-30] MEDS: enoxaparin 40mg/0.4ml syringe SUBCUT SCH (08:18)
[2020-12-30] MEDS: lactobacillus rhamnosus 10,000 MMU CELLS/CAPSULE PEG SCH ×2 (08:18→20:29)
[2020-12-30] MEDS: nystatin 15 GM powder TP SCH ×3 (08:19→21:53)
--- NOTE | 2020-12-30 18:19 | NUR ---
Patient in room ICU 2044. I have received report from Jaren LUKE and had the opportunity to ask questions and assume patient care.
[2020-12-30] MEDS: insulin glargine (Lantus) pen - multi-dose SQ SCH (20:36)
[2020-12-30] MEDS: psyllium seed 3.4 gm packet PEG SCH (21:00)
[2020-12-31] VITALS (24 sets, daily range): BP systolic 91–123; BP diastolic 51–81
[2020-12-31] MEDS: insulin regular, human U-100 3ml vial - multi-dose SQ SCH (01:49)
--- NOTE | 2020-12-31 06:30 | NUR ---
Patient in room ICU 2044. I have received report from graham Israel and had the opportunity to ask questions and assume patient care.
[2020-12-31] MEDS: pantoprazole 40 MG vial IV SCH (07:56)
[2020-12-31] MEDS: vitamin B comp w/Vit. C tab 1 TAB TABLET PEG SCH (09:29)
[2020-12-31] MEDS: amiodarone 200mg tablet PEG SCH (09:29)
[2020-12-31] MEDS: quetiapine 100mg tablet PEG SCH ×2 (09:29→19:35)
[2020-12-31] MEDS: atorvastatin 20mg tablet PEG SCH (09:30)
[2020-12-31] MEDS: lactobacillus rhamnosus 10,000 MMU CELLS/CAPSULE PEG SCH ×2 (09:30→19:35)
[2020-12-31] MEDS: enoxaparin 40mg/0.4ml syringe SUBCUT SCH (09:31)
[2020-12-31] MEDS: docusate sodium 100mg/10ml UD cup PEG SCH ×2 (09:31→19:34)
[2020-12-31] MEDS: nystatin 15 GM powder TP SCH ×3 (09:31→20:31)
--- NOTE | 2020-12-31 12:05 | NUR ---
F/u 12/31: Pt PO mostly 0% full liquids though meeting needs via PEG feeds. RN reports pt to start on Soft to chew foods today, advised RN to wait until pt can consistently consume approximately 50% of meals before decreasing TF. Rectal tube removed per RN, ZANE 12/30 receiving routine colace and metamucil. Will continue to monitor PO trends and adjust TF as medically indicated. Rec: 1) Continuous PEG TF using Glucerna 1.2 at 85 mL/hr goal; to provide 2040mL volume, 2448 kcals, 1652mL water, and 122g protein. 2) Additional 125 mL water flush Q4H; monitor serum Na and adjust as appropriate 3) Advance to Regular/soft to chew diet if MD agreeable 4) PALB q /; daily wts 5) Monitor for True ONS needs given full thickness sulcus IAD; unable to given w/ current free water recs. Consider PO ONS once PO diet tolerance improves 6) bowel care per rx Addendum: 12/31/20 at [address] Amended: Links added.
--- NOTE | 2020-12-31 17:50 | NUR ---
pt juan ramon full liqiud diet well, accuchecks changed to ac and hs
--- NOTE | 2020-12-31 18:20 | NUR ---
Problems reprioritized. Patient report given, questions answered & plan of care reviewed with MARLY Najera.
--- NOTE | 2020-12-31 18:30 | NUR ---
Patient in room ICU 2044. I have received report from Hanna LUKE at bedside and had the opportunity to ask questions and assume patient care.
[2020-12-31] MEDS: psyllium seed 3.4 gm packet PEG SCH (20:31)
[2020-12-31] MEDS: insulin glargine (Lantus) pen - multi-dose SQ SCH (20:41)
[2021-01-01] VITALS (24 sets, daily range): BP systolic 92–130; BP diastolic 61–83
--- NOTE | 2021-01-01 06:13 | NUR ---
Problems reprioritized. Patient report given, questions answered & plan of care reviewed with Hanna LUKE at bedside.
--- NOTE | 2021-01-01 06:25 | NUR ---
Patient in room ICU 2044. I have received report from MARLY Najera and had the opportunity to ask questions and assume patient care.
[2021-01-01 07:22] LABS: BASOPHILS # (AUTO) 0.1 X10'3 (0-0.2); BASOPHILS % (AUTO) 0.9 % (0-1); EOSINOPHILS # (AUTO) 0.2 X10'3 (0-0.9); HEMATOCRIT 36.4 % (42.0-52.0); HEMOGLOBIN 11.8 g/dl (14.0-17.9); LYMPHOCYTES # (AUTO) 2.6 X10'3 (1.1-4.8); LYMPHOCYTES % (AUTO) 42.7 % (21-51); MEAN CORPUSCULAR HEMOGLOBIN 30.2 PG (27.0-31.0); MEAN CORPUSCULAR HGB CONC 32.3 g/dL (33.0-36.5); MEAN CORPUSCULAR VOLUME 93.4 FL (78-98); MEAN PLATELET VOLUME 7.7 FL (7.4-10.4); MONOCYTES # (AUTO) 0.8 X10'3 (0-0.9); MONOCYTES % (AUTO) 12.7 % (2-12); NEUTROPHILS # (AUTO) 2.5 X10'3 (1.8-7.7); NEUTROPHILS % (AUTO) 40.7 % (42-75); PLATELET COUNT 463 X10'3 (140-440); RED CELL DISTRIBUTION WIDTH 17.5 % (11.5-14.5); WHITE BLOOD COUNT 6.2 X10'3 (4.5-11.0)
[2021-01-01 08:09] LABS: ALANINE AMINOTRANSFERASE 47 U/L (12-78); ALBUMIN 2.8 G/DL (3.4-5.0); ALBUMIN/GLOBULIN RATIO 0.6 (1.1-1.5); ALKALINE PHOSPHATASE 99 IU/L (46-116); ANION GAP 7 (8-16); ASPARTATE AMINO TRANSFERASE 23 U/L (10-37); BILIRUBIN,TOTAL 0.3 MG/DL (0.1-1.0); BLOOD UREA NITROGEN 14 MG/DL (7-18); BUN/CREATININE RATIO 20.6 (5.4-32.0); CALCIUM 9.1 MG/DL (8.5-10.1); CHLORIDE 99 MMOL/L (99-107); CREATININE 0.68 MG/DL (0.60-1.10); GLUCOSE 99 MG/DL (70-104); MAGNESIUM 2.1 MG/DL (1.5-2.4); POTASSIUM 3.8 MMOL/L (3.5-5.1); SODIUM 133 MMOL/L (135-145); TOTAL CARBON DIOXIDE 27.5 MMOL/L (24-32); TOTAL PROTEIN 7.3 G/DL (6.4-8.2); eGFR > 90 ML/MIN
[2021-01-01] MEDS: atorvastatin 20mg tablet PEG SCH (08:25)
[2021-01-01] MEDS: lactobacillus rhamnosus 10,000 MMU CELLS/CAPSULE PEG SCH ×2 (08:25→20:35)
[2021-01-01] MEDS: pantoprazole 40 MG vial IV SCH (08:25)
[2021-01-01] MEDS: quetiapine 100mg tablet PEG SCH ×2 (08:25→20:35)
[2021-01-01] MEDS: amiodarone 200mg tablet PEG SCH (08:25)
[2021-01-01] MEDS: vitamin B comp w/Vit. C tab 1 TAB TABLET PEG SCH (08:25)
[2021-01-01] MEDS: docusate sodium 100mg/10ml UD cup PEG SCH ×2 (08:26→20:35)
[2021-01-01] MEDS: nystatin 15 GM powder TP SCH ×3 (08:27→20:35)
[2021-01-01] MEDS: enoxaparin 40mg/0.4ml syringe SUBCUT SCH (08:27)
--- NOTE | 2021-01-01 10:48 | NUR ---
F/u 01/01: Pt continues on Full liquid diet, consuming about 50% of meals 12/31 not meeting needs. TF has been d/c 12/31. RN states that pt to be put on soft diet today. RD recommends BSS as last eval was on 12/26 w/ recommendation of Full liquids. Will continue to monitor PO trends and diet advancement. Rec: 1) Advance diet per ST recs 2) Monitor need for ONS upon diet advancement and PO trends 3) bowel care per rx 4) Weekly wts Addendum: 01/01/21 at [address] Amended: Links added.
[2021-01-01] MEDS: fentaNYL 25MCG/hour patch.TD72 TD SCH (11:45)
[2021-01-01] MEDS: acetaminophen 325mg/10.15ml oral unit dose solution PEG PRN (16:09)
--- NOTE | 2021-01-01 16:38 | NUR ---
PT decannulated per Dr. Bardales. Addendum: 01/01/21 at 1638 by Andie OH Amended: Links added.
--- NOTE | 2021-01-01 18:42 | NUR ---
Patient in room ICU 2044. I have received report from Hanna LUKE at bedside and had the opportunity to ask questions and assume patient care.
--- NOTE | 2021-01-01 18:45 | NUR ---
Problems reprioritized. Patient report given, questions answered & plan of care reviewed with MARLY Najera.
[2021-01-01] MEDS: psyllium seed 3.4 gm packet PEG SCH (20:35)
[2021-01-01] MEDS: insulin glargine (Lantus) pen - multi-dose SQ SCH (21:00)
[2021-01-02] VITALS (20 sets, daily range): BP systolic 97–116; BP diastolic 62–78
--- NOTE | 2021-01-02 06:36 | NUR ---
Problems reprioritized. Patient report given, questions answered & plan of care reviewed with Hanna LUKE at bedside.
--- NOTE | 2021-01-02 06:41 | NUR ---
Patient in room ICU 2044. I have received report from MARLY Najera and had the opportunity to ask questions and assume patient care.
[2021-01-02] MEDS: pantoprazole 40 MG vial IV SCH (07:53)
[2021-01-02] MEDS: lactobacillus rhamnosus 10,000 MMU CELLS/CAPSULE PEG SCH ×2 (08:18→20:19)
[2021-01-02] MEDS: vitamin B comp w/Vit. C tab 1 TAB TABLET PEG SCH (08:18)
[2021-01-02] MEDS: atorvastatin 20mg tablet PEG SCH (08:18)
[2021-01-02] MEDS: amiodarone 200mg tablet PEG SCH (08:18)
[2021-01-02] MEDS: quetiapine 100mg tablet PEG SCH ×2 (08:18→20:19)
[2021-01-02] MEDS: enoxaparin 40mg/0.4ml syringe SUBCUT SCH (08:19)
[2021-01-02] MEDS: nystatin 15 GM powder TP SCH ×3 (08:20→20:27)
[2021-01-02] MEDS: docusate sodium 100mg/10ml UD cup PEG SCH ×2 (08:34→20:20)
[2021-01-02] MEDS: acetaminophen 325mg/10.15ml oral unit dose solution PEG PRN (11:01)
--- NOTE | 2021-01-02 16:31 | NUR ---
Problems reprioritized. Patient report given, questions answered & plan of care reviewed with abby sandsu rn.
--- NOTE | 2021-01-02 17:00 | NUR ---
Pt transferred to room 3010 with all belongings,on o2 4l/n/c
--- NOTE | 2021-01-02 18:19 | NUR ---
Problems reprioritized. Patient report given, questions answered & plan of care reviewed with Amirah Macario RN. Patient resting in no acute distress.
--- NOTE | 2021-01-02 18:30 | NUR ---
Patient in room PCU 3010. I have received report from KATINA and had the opportunity to ask questions and assume patient care.
[2021-01-02] MEDS: psyllium seed 3.4 gm packet PEG SCH (20:19)
[2021-01-02] MEDS: insulin glargine (Lantus) pen - multi-dose SQ SCH (22:35)
[2021-01-03 02:00] VITALS: BP 118/67
[2021-01-03 06:00] VITALS: BP 125/77
--- NOTE | 2021-01-03 06:19 | NUR ---
Problems reprioritized. Patient report given, questions answered & plan of care reviewed with JELANI LUKE.
--- NOTE | 2021-01-03 06:20 | NUR ---
Patient in room PCU 3010. I have received report from MARLY Andres and had the opportunity to ask questions and assume patient care.
[2021-01-03] MEDS: pantoprazole 40 MG vial IV SCH (08:22)
[2021-01-03] MEDS: quetiapine 100mg tablet PEG SCH (08:22)
[2021-01-03] MEDS: lactobacillus rhamnosus 10,000 MMU CELLS/CAPSULE PEG SCH (08:22)
[2021-01-03] MEDS: docusate sodium 100mg/10ml UD cup PEG SCH (08:22)
[2021-01-03] MEDS: atorvastatin 20mg tablet PEG SCH (08:22)
[2021-01-03] MEDS: amiodarone 200mg tablet PEG SCH (08:22)
[2021-01-03] MEDS: vitamin B comp w/Vit. C tab 1 TAB TABLET PEG SCH (08:23)
[2021-01-03] MEDS: enoxaparin 40mg/0.4ml syringe SUBCUT SCH (08:23)
[2021-01-03] MEDS: nystatin 15 GM powder TP SCH ×3 (08:24→21:05)
[2021-01-03 08:35] LABS: BASOPHILS % (AUTO) 0.6 % (0-1); EOSINOPHILS # (AUTO) 0.2 X10'3 (0-0.9); EOSINOPHILS % (AUTO) 3.6 % (0-6); HEMATOCRIT 37.2 % (42.0-52.0); LYMPHOCYTES # (AUTO) 2.7 X10'3 (1.1-4.8); LYMPHOCYTES % (AUTO) 44.6 % (21-51); MEAN CORPUSCULAR HGB CONC 32.2 g/dL (33.0-36.5); MEAN CORPUSCULAR VOLUME 93.1 FL (78-98); MEAN PLATELET VOLUME 7.2 FL (7.4-10.4); MONOCYTES # (AUTO) 0.7 X10'3 (0-0.9); MONOCYTES % (AUTO) 12.1 % (2-12); NEUTROPHILS # (AUTO) 2.4 X10'3 (1.8-7.7); NEUTROPHILS % (AUTO) 39.1 % (42-75); PLATELET COUNT 398 X10'3 (140-440); RED BLOOD COUNT 3.99 X10'6 (4.70-6.10); RED CELL DISTRIBUTION WIDTH 17.6 % (11.5-14.5)
[2021-01-03 09:00] LABS: ALANINE AMINOTRANSFERASE 46 U/L (12-78); ALBUMIN 2.8 G/DL (3.4-5.0); ALBUMIN/GLOBULIN RATIO 0.6 (1.1-1.5); ALKALINE PHOSPHATASE 94 IU/L (46-116); ANION GAP 11 (8-16); ASPARTATE AMINO TRANSFERASE 20 U/L (10-37); BILIRUBIN,TOTAL 0.3 MG/DL (0.1-1.0); BLOOD UREA NITROGEN 14 MG/DL (7-18); BUN/CREATININE RATIO 21.9 (5.4-32.0); CALCIUM 8.7 MG/DL (8.5-10.1); CHLORIDE 103 MMOL/L (99-107); CREATININE 0.64 MG/DL (0.60-1.10); GLUCOSE 112 MG/DL (70-104); MAGNESIUM 1.9 MG/DL (1.5-2.4); POTASSIUM 4.5 MMOL/L (3.5-5.1); SODIUM 141 MMOL/L (135-145); TOTAL CARBON DIOXIDE 27.4 MMOL/L (24-32); TOTAL PROTEIN 7.2 G/DL (6.4-8.2); eGFR > 90 ML/MIN
[2021-01-03 11:00] VITALS: BP 108/73
[2021-01-03] MEDS: acetaminophen 325mg/10.15ml oral unit dose solution PEG PRN (17:34)
[2021-01-03 18:00] VITALS: BP 105/67
--- NOTE | 2021-01-03 18:36 | NUR ---
Problems reprioritized. Patient report given, questions answered & plan of care reviewed with MARLY Flood.
[2021-01-03] MEDS ORDERED: ALPRAZolam 0.25mg tablet PO PRN (19:06)
[2021-01-03] MEDS ORDERED: acetaminophen 325mg tablet PO PRN (19:07)
[2021-01-03] MEDS ORDERED: amiodarone 200mg tablet PO SCH (19:07)
[2021-01-03] MEDS ORDERED: dextrose ORAL solution 15 GM/59 ML bottle PO PRN ×2 (19:08→19:11)
[2021-01-03] MEDS ORDERED: mag hydrox/Alum hydrox/simeth 30ml oral suspension PO PRN (19:24)
[2021-01-03] MEDS ORDERED: ondansetron 4mg rapidly disintigrating tab PO PRN (19:25)
[2021-01-03] MEDS ORDERED: magnesium hydroxide 30ml (MOM) UD suspension PO PRN (19:25)
[2021-01-03] MEDS ORDERED: potassium Cl 20 mEq SR tablet PO PRN (19:26)
[2021-01-03] MEDS: lactobacillus rhamnosus 10,000 MMU CELLS/CAPSULE PO SCH (19:46)
[2021-01-03] MEDS: quetiapine 100mg tablet PO SCH (19:46)
[2021-01-03] MEDS: psyllium seed 3.4 gm packet PO SCH (19:47)
[2021-01-03] MEDS: docusate sod 100mg capsule PO SCH (19:47)
[2021-01-03] MEDS: insulin glargine (Lantus) pen - multi-dose SQ SCH (21:00)
[2021-01-03 22:00] VITALS: BP 101/69
[2021-01-04 03:00] VITALS: BP 123/82
[2021-01-04 06:00] VITALS: BP 116/72
--- NOTE | 2021-01-04 06:15 | NUR ---
Problems reprioritized. Patient report given, questions answered & plan of care reviewed with MARLY Sandoval.
--- NOTE | 2021-01-04 06:16 | NUR ---
Patient in room PCU 3010. I have received report from Cecilia LUKE and had the opportunity to ask questions and assume patient care.
[2021-01-04] MEDS: lactobacillus rhamnosus 10,000 MMU CELLS/CAPSULE PO SCH ×2 (07:50→19:57)
[2021-01-04] MEDS: vitamin B comp w/Vit. C tab 1 TAB TABLET PO SCH (07:50)
[2021-01-04] MEDS: quetiapine 100mg tablet PO SCH ×2 (07:51→19:57)
[2021-01-04] MEDS: docusate sod 100mg capsule PO SCH ×2 (07:51→19:58)
[2021-01-04] MEDS: nystatin 15 GM powder TP SCH ×3 (07:51→21:03)
[2021-01-04] MEDS: atorvastatin 20mg tablet PO SCH (07:51)
[2021-01-04] MEDS: pantoprazole 40 MG vial IV SCH (07:52)
[2021-01-04] MEDS: enoxaparin 40mg/0.4ml syringe SUBCUT SCH (07:52)
[2021-01-04] MEDS: acetaminophen 325mg tablet PO PRN ×2 (09:32→19:58)
--- NOTE | 2021-01-04 09:59 | NUR ---
F/u 01/04: Pt advance to SB6/thin, regular diet per [employer] recs PO mostly 100% solid meals meeting needs. LBM 01/02 receiving routine colace and metamucil. Positive 10.3kg wt gain one day certainly error w/ +100ml fluid balance over same 24hr period. Noted sulcus wound w/ granulation tissue and reddened though no staging noted in most recent WOC note. Also noted pt DM hx though has not met protocol for Lantus since 12/30 receiving insulin and Glu mostly 100-130mg/dl w/ one time 158mg/dl outlier; IF Glu increases consider carb controlled diet. Will monitor for additional nutrition intervention needs this admit. Rec: 1) Continue SB6/thin, regular diet per [employer]/MD recs; consider carb controlled restriction if Glu consistently increases 2) Monitor for updated WOC notes and need for True ONS 3) bowel care per rx 4) Weekly wts Addendum: 01/04/21 at [address] Amended: Links added.
[2021-01-04 10:00] VITALS: BP 108/72
[2021-01-04] MEDS: fentaNYL 25MCG/hour patch.TD72 TD SCH (13:11)
[2021-01-04 15:00] VITALS: BP 101/71
[2021-01-04 18:00] VITALS: BP 111/80
--- NOTE | 2021-01-04 18:28 | NUR ---
Problems reprioritized. Patient report given, questions answered & plan of care reviewed with Cecilia LUKE.
[2021-01-04] MEDS: insulin Lispro (HumaLOG) vial - multi-dose SQ SCH (19:45)
[2021-01-04] MEDS: psyllium seed 3.4 gm packet PO SCH (21:03)
[2021-01-04] MEDS: insulin glargine (Lantus) pen - multi-dose SQ SCH (21:39)
--- NOTE | 2021-01-04 21:40 | NUR ---
Pt iis no longer in TPN. Today, he have just met a protocol for Hyper/hypoglycemia, level 2. I adjusted the Lantus dose to 12 units tonight.
[2021-01-04 22:00] VITALS: BP 116/82
[2021-01-05 02:00] VITALS: BP 111/77
[2021-01-05 06:00] VITALS: BP 132/87
--- NOTE | 2021-01-05 06:17 | NUR ---
Problems reprioritized. Patient report given, questions answered & plan of care reviewed with MARLY Crum.
--- NOTE | 2021-01-05 06:21 | NUR ---
Patient in room PCU 3010. I have received report from MARLY AMARO, and had the opportunity to ask questions and assume patient care.
[2021-01-05] MEDS: pantoprazole 40 MG vial IV SCH (07:31)
[2021-01-05] MEDS: lactobacillus rhamnosus 10,000 MMU CELLS/CAPSULE PO SCH ×3 (07:31→21:46)
[2021-01-05] MEDS: enoxaparin 40mg/0.4ml syringe SUBCUT SCH (07:31)
[2021-01-05] MEDS: quetiapine 100mg tablet PO SCH ×2 (07:33→19:36)
[2021-01-05] MEDS: atorvastatin 20mg tablet PO SCH (07:33)
[2021-01-05] MEDS: docusate sod 100mg capsule PO SCH ×2 (07:34→19:36)
[2021-01-05] MEDS: nystatin 15 GM powder TP SCH ×3 (07:34→21:52)
[2021-01-05] MEDS: vitamin B comp w/Vit. C tab 1 TAB TABLET PO SCH (09:25)
[2021-01-05] MEDS: insulin Lispro (HumaLOG) vial - multi-dose SQ SCH ×3 (09:30→19:35)
[2021-01-05] MEDS ORDERED: salt irrigation nasal spray 45 ML SPRAY NS PRN (10:40)
[2021-01-05 11:00] VITALS: BP 113/75
[2021-01-05] MEDS: acetaminophen 325mg tablet PO PRN ×2 (12:00→22:07)
--- NOTE | 2021-01-05 14:14 | NUR ---
O2 Sat at rest on room air:__92_% If below 89%: Recovery O2 Sat at rest on ___LPM:___%:___% via (mask/nasal cannula, etc..) No further documentation is necessary. If O2 Sat did not drop below 89% on room air,ambulate patient on room air. O2 Sat while ambulating on room air:__84_% Recovery O2 Sat while ambulating on _4__LPM:_92__% No further documentation is necessary. If patient does not drop below 89% while ambulating, he/she does not qualify for home O2.
[2021-01-05 15:00] VITALS: BP 100/62
[2021-01-05 18:00] VITALS: BP 112/72
--- NOTE | 2021-01-05 18:26 | NUR ---
Problems reprioritized. Patient report given, questions answered & plan of care reviewed with MARLY HARMON.
[2021-01-05 20:00] VITALS: BP 111/74
[2021-01-05] MEDS: psyllium seed 3.4 gm packet PO SCH ×2 (21:00→21:46)
[2021-01-05] MEDS: insulin glargine (Lantus) pen - multi-dose SQ SCH (21:45)
[2021-01-06 02:00] VITALS: BP 105/75
--- NOTE | 2021-01-06 06:07 | NUR ---
Patient in room PCU 3010. I have received report from Chiquita LUKE and had the opportunity to ask questions and assume patient care.
--- NOTE | 2021-01-06 06:17 | NUR ---
Problems reprioritized. Patient report given, questions answered & plan of care reviewed with MARLY Freeman.
[2021-01-06 07:00] VITALS: BP 116/77
[2021-01-06] MEDS: nystatin 15 GM powder TP SCH (08:00)
[2021-01-06] MEDS: atorvastatin 20mg tablet PO SCH (08:59)
[2021-01-06] MEDS: enoxaparin 40mg/0.4ml syringe SUBCUT SCH (08:59)
[2021-01-06] MEDS: docusate sod 100mg capsule PO SCH (09:00)
[2021-01-06] MEDS: vitamin B comp w/Vit. C tab 1 TAB TABLET PO SCH (09:00)
[2021-01-06] MEDS: quetiapine 100mg tablet PO SCH (09:00)
[2021-01-06] MEDS: lactobacillus rhamnosus 10,000 MMU CELLS/CAPSULE PO SCH (09:00)
[2021-01-06] MEDS: pantoprazole 40 MG vial IV SCH (09:01)
[2021-01-06] MEDS: acetaminophen 325mg tablet PO PRN (09:08)
--- NOTE | 2021-01-06 09:24 | NUR ---
PAGER ID: [phone] MESSAGE: [email or web address] [email or web address]. I have a noon pickup time for Ryan Nino 3010, but he has a peg tube in place still, is he going home with the peg tube? Pls advise, thanks
[2021-01-06] MEDS ORDERED: APIX5TAB3 PO (09:50)
[2021-01-06 11:00] VITALS: BP 107/70
--- NOTE | 2021-01-06 12:19 | NUR ---
Peg tube removed bedside by Dr. Lester, patient tolerated well.
--- NOTE | 2021-01-06 12:20 | NUR ---
Pt refused blood glucose check due to discharging and planning on eating lunch at home.
--- NOTE | 2021-01-06 13:16 | NUR ---
Patient stable for discharge per MD order, all discharge instructions reviewed with patient and all questions answered. PIV discontinued, cannula intact. Telemetry discontinued, telegraphic typewriter installer notified. New prescriptions faxed to [facility], and to [facility] in [place]. All belongings collected and sent with patient. Patient picked up in [facility] by [facility] personnel, wheeled to lobby by staff.
== END 2021-01-06 12:44 | disposition home health service (06) | DRG 5 ==
LOC: ER 20:19 → ED HOLD 22:42 → ICU 2S 11-16 10:10 → CICU 2S 11-25 19:00 → ICU 2S 12-21 17:27 → PCU 3S 01-02 17:05
PROVIDERS: ADMIT Family Medicine; ATTEND Internal Medicine
PROC: XW033E5 Introduction of Remdesivir Anti-infective into Peripheral Vein, Percutaneous Approach, New Technology Group 5 (ICD-10-PCS; principal; 2020-11-15)
PROC: 5A0935A Assistance with Respiratory Ventilation, Less than 24 Consecutive Hours, High Flow/Velocity Cannula (ICD-10-PCS; 2020-11-15)
PROC: 5A09357 Assistance with Respiratory Ventilation, Less than 24 Consecutive Hours, Continuous Positive Airway Pressure (ICD-10-PCS; 2020-11-15)
PROC: 5A0945A Assistance with Respiratory Ventilation, 24-96 Consecutive Hours, High Flow/Velocity Cannula (ICD-10-PCS; 2020-11-16)
PROC: 5A09357 Assistance with Respiratory Ventilation, Less than 24 Consecutive Hours, Continuous Positive Airway Pressure (ICD-10-PCS; 2020-11-18)
PROC: 5A0935A Assistance with Respiratory Ventilation, Less than 24 Consecutive Hours, High Flow/Velocity Cannula (ICD-10-PCS; 2020-11-19)
PROC: 5A0935A Assistance with Respiratory Ventilation, Less than 24 Consecutive Hours, High Flow/Velocity Cannula (ICD-10-PCS; 2020-11-20)
PROC: 5A09357 Assistance with Respiratory Ventilation, Less than 24 Consecutive Hours, Continuous Positive Airway Pressure (ICD-10-PCS; 2020-11-20)
PROC: 5A09457 Assistance with Respiratory Ventilation, 24-96 Consecutive Hours, Continuous Positive Airway Pressure (ICD-10-PCS; 2020-11-21)
PROC: 02HV33Z Insertion of Infusion Device into Superior Vena Cava, Percutaneous Approach (ICD-10-PCS; 2020-11-21)
PROC: B548ZZA Ultrasonography of Superior Vena Cava, Guidance (ICD-10-PCS; 2020-11-21)
PROC: 5A1955Z Respiratory Ventilation, Greater than 96 Consecutive Hours (ICD-10-PCS; 2020-11-22)
PROC: 0BH17EZ Insertion of Endotracheal Airway into Trachea, Via Natural or Artificial Opening (ICD-10-PCS; 2020-11-22)
PROC: 0W9B30Z Drainage of Left Pleural Cavity with Drainage Device, Percutaneous Approach (ICD-10-PCS; 2020-11-22)
PROC: 0W9930Z Drainage of Right Pleural Cavity with Drainage Device, Percutaneous Approach (ICD-10-PCS; 2020-11-22)
PROC: 04HY32Z Insertion of Monitoring Device into Lower Artery, Percutaneous Approach (ICD-10-PCS; 2020-11-22)
PROC: 0WW930Z Revision of Drainage Device in Right Pleural Cavity, Percutaneous Approach (ICD-10-PCS; 2020-11-27)
PROC: 02HV33Z Insertion of Infusion Device into Superior Vena Cava, Percutaneous Approach (ICD-10-PCS; 2020-11-29)
PROC: B548ZZA Ultrasonography of Superior Vena Cava, Guidance (ICD-10-PCS; 2020-11-29)
PROC: 0B113F4 Bypass Trachea to Cutaneous with Tracheostomy Device, Percutaneous Approach (ICD-10-PCS; 2020-12-11)
PROC: BW251ZZ Computerized Tomography (CT Scan) of Chest, Abdomen and Pelvis using Low Osmolar Contrast (ICD-10-PCS; 2020-12-15)
PROC: 0BJ08ZZ Inspection of Tracheobronchial Tree, Via Natural or Artificial Opening Endoscopic (ICD-10-PCS; 2020-12-26)
PROC: 5A0935A Assistance with Respiratory Ventilation, Less than 24 Consecutive Hours, High Flow/Velocity Cannula (ICD-10-PCS; 2021-01-01)
DX: U07.1 COVID-19 (principal); J12.82 Pneumonia due to coronavirus disease 2019; J15.211 Pneumonia due to Methicillin susceptible Staphylococcus aureus; E43 Unspecified severe protein-calorie malnutrition; J15.212 Pneumonia due to Methicillin resistant Staphylococcus aureus; E87.0 Hyperosmolality and hypernatremia; E87.3 Alkalosis; T79.7XXA Traumatic subcutaneous emphysema, initial encounter; J93.82 Other air leak; E11.65 Type 2 diabetes mellitus with hyperglycemia; I48.0 Paroxysmal atrial fibrillation; E87.1 Hypo-osmolality and hyponatremia; E78.5 Hyperlipidemia, unspecified; F41.9 Anxiety disorder, unspecified; J80 Acute respiratory distress syndrome; E66.9 Obesity, unspecified; J93.9 Pneumothorax, unspecified; J98.11 Atelectasis; L89.90 Pressure ulcer of unspecified site, unspecified stage; I10 Essential (primary) hypertension; E87.6 Hypokalemia; Z78.1 Physical restraint status; Z79.01 Long term (current) use of anticoagulants; Z79.4 Long term (current) use of insulin; Z79.82 Long term (current) use of aspirin; Z79.899 Other long term (current) drug therapy; Z99.11 Dependence on respirator [ventilator] status; Z88.8 Allergy status to other drugs, medicaments and biological substances; Z68.30 Body mass index [BMI] 30.0-30.9, adult; I95.9 Hypotension, unspecified; I95.2 Hypotension due to drugs; T50.995A Adverse effect of other drugs, medicaments and biological substances, initial encounter; Y92.230 Patient room in hospital as the place of occurrence of the external cause
CPT/HCPCS: 31628; 31645; 36415; 36573; 36600; 43246; 71045; 71250; 71260; 74018; 74176; 74177; 76937; 80048; 80053; 80061; 80202; 80305; 80320; 81001; 82550; 82728; 82803; 82948; 83036; 83605; 83615; 83690; 83735; 83880; 84100; 84132; 84134; 84145; 84443; 84478; 84484; 85007; 85008; 85018; 85025; 85027; 85379; 85384; 85610; 85730; 86140; 86885; 86900; 86901; 86920; 87040; 87070; 87077; 87081; 87088; 87186; 92508; 92616; 93005; 93308; 93970; 93971; 94002; 94003; 94640; 94660; 94667; 94668; 94760; 94799; 96374; 96375; 97110; 97116; 97161; 97530; 97535; 99285; B4087; C9113; G0378; J0456; J0461; J0692; J0696; J1100; J1450; J1650; J1815; J1940; J2060; J2185; J2248; J2250; J2270; J2543; J2597; J2704; J2720; J2920; J2930; J3010; J3370; J3480; J3490; J7030; P9045; P9047; Q9963; Q9967

== ENCOUNTER 2021-04-27 15:48 | Outpatient (CLI) | payer MEDICAID ==
[~2021-04-27] VITALS: Ht 172.7 cm; Wt 92.1 kg
[~2021-04-27 15:48] MED LIST changes: -ALBU6.7H3 INH; +APIX5TAB3 PO; +ASPI-1397 PO; +ATOR40TA72 PO; +CHOL20003 PO; +FENO134C PO; +LIRA0.6P SQ; +METF-900 PO; +VITA1TAB20 PO; -etomidate 2mg/ml inj. ONE; -sod chloride 0.9% 10ml flush syringe IV ONE
[2021-04-27] MEDS ORDERED: albuterol 2.5 MG/3 ML nebule NEB PRN (16:35)
== END 2021-04-27 23:59 | disposition home or self-care (01) ==
LOC: RT 15:48
PROVIDERS: ATTEND Family Medicine
DX: R94.2 Abnormal results of pulmonary function studies (principal); U07.1 COVID-19
CPT/HCPCS: 94060; 94727; 94729; 94760

== ENCOUNTER 2021-06-11 01:34 | Outpatient (CLI) | payer MEDICAID ==
[~2021-06-11 01:34] MED LIST changes: -FENO134C PO; +FENO134C21 PO
== END 2021-06-11 23:59 | disposition home or self-care (01) ==
LOC: RT 01:34
PROVIDERS: ATTEND Family Medicine
DX: R05.3 Chronic cough (principal); J45.909 Unspecified asthma, uncomplicated; Z86.16 Personal history of COVID-19
CPT/HCPCS: 94618

== ENCOUNTER 2022-04-08 20:46 | Emergency (ER) | payer MEDICAID ==
[~2022-04-08] VITALS: Ht 177.8 cm; Wt 95.5 kg
[2022-04-08 21:05] LABS: BASOPHILS % (AUTO) 0.4 % (0-1); EOSINOPHILS % (AUTO) 0.4 % (0-6); HEMATOCRIT 41.3 % (42.0-52.0); LYMPHOCYTES # (AUTO) 1.7 X10'3 (1.1-4.8); LYMPHOCYTES % (AUTO) 17.7 % (21-51); MEAN CORPUSCULAR VOLUME 94.4 FL (78-98); MEAN PLATELET VOLUME 7.5 FL (7.4-10.4); MONOCYTES # (AUTO) 1.2 X10'3 (0-0.9); MONOCYTES % (AUTO) 12.9 % (2-12); NEUTROPHILS # (AUTO) 6.5 X10'3 (1.8-7.7); NEUTROPHILS % (AUTO) 68.6 % (42-75); PLATELET COUNT 202 X10'3 (140-440); RED BLOOD COUNT 4.38 X10'6 (4.70-6.10); RED CELL DISTRIBUTION WIDTH 14.5 % (11.5-14.5); WHITE BLOOD COUNT 9.5 X10'3 (4.5-11.0)
[2022-04-08] MEDS ORDERED: albuterol 2.5 MG/3 ML nebule CONTNEB PRN (21:15)
[2022-04-08 21:27] LABS: ALANINE AMINOTRANSFERASE 43 U/L (12-78); ALBUMIN 2.9 G/DL (3.4-5.0); ALBUMIN/GLOBULIN RATIO 0.6 (1.1-1.5); ALKALINE PHOSPHATASE 57 IU/L (46-116); ANION GAP 9 (8-16); ASPARTATE AMINO TRANSFERASE 27 U/L (10-37); BILIRUBIN,TOTAL 0.3 MG/DL (0.1-1.0); BLOOD UREA NITROGEN 21 MG/DL (7-18); BUN/CREATININE RATIO 23.3 (5.4-32.0); CALCIUM 8.8 MG/DL (8.5-10.1); CHLORIDE 99 MMOL/L (99-107); GLUCOSE 273 MG/DL (70-104); POTASSIUM 3.9 MMOL/L (3.5-5.1); SODIUM 130 MMOL/L (135-145); TOTAL CARBON DIOXIDE 22.2 MMOL/L (24-32); TOTAL PROTEIN 7.5 G/DL (6.4-8.2); eGFR 89 ML/MIN
[2022-04-08] MEDS ORDERED: normal saline 1000ML IV soln IVB ONE (21:35)
[2022-04-08] MEDS ORDERED: iohexol 350MG/ML 100ml bottle IV ONE (21:40)
[2022-04-09] MEDS ORDERED: oseltamivir phos 75mg capsule PO ONE (01:10)
[2022-04-09] MEDS ORDERED: ketorolac trometh. 30mg/ml inj. IV ONE (01:10)
[2022-04-09] MEDS ORDERED: TAM75C PO (01:12)
[2022-04-09 02:11] VITALS: BP 115/79
== END 2022-04-09 02:11 | disposition home or self-care (01) ==
LOC: ER 20:47
DX: J10.1 Influenza due to other identified influenza virus with other respiratory manifestations (principal); Z20.822 Contact with and (suspected) exposure to COVID-19; E11.9 Type 2 diabetes mellitus without complications; Z88.0 Allergy status to penicillin; Z88.8 Allergy status to other drugs, medicaments and biological substances
CPT/HCPCS: 36415; 71045; 71275; 80053; 83605; 83880; 84145; 84484; 85025; 87040; 87502; 87503; 87635; 94640; 94644; 96361; 96374; 99285; C9803; J1885; J3490; J7030; Q9967; 94760; A4615; A7015

== ENCOUNTER 2022-04-17 16:37 | Inpatient (IN) | payer MEDICAID ==
[~2022-04-17] VITALS: Ht 175.3 cm; Wt 98.6 kg
[2022-04-17] MEDS ORDERED: ipratropium/albuterol 3ml nebule NEB ONE ×2 (17:25→18:21)
[2022-04-17 17:59] LABS: EOSINOPHILS # (AUTO) 0.1 X10'3 (0-0.9); HEMOGLOBIN 14.8 g/dl (14.0-17.9); MEAN CORPUSCULAR HEMOGLOBIN 31.2 PG (27.0-31.0); RED CELL DISTRIBUTION WIDTH 14.2 % (11.5-14.5)
[2022-04-17 18:01] LABS: BASOPHILS % (AUTO) 0.1 % (0-1); EOSINOPHILS % (AUTO) 0.7 % (0-6); HEMATOCRIT 44.8 % (42.0-52.0); LYMPHOCYTES # (AUTO) 2.4 X10'3 (1.1-4.8); LYMPHOCYTES % (AUTO) 14.2 % (21-51); MEAN CORPUSCULAR HGB CONC 33.1 g/dL (33.0-36.5); MEAN CORPUSCULAR VOLUME 94.2 FL (78-98); MONOCYTES # (AUTO) 1.2 X10'3 (0-0.9); MONOCYTES % (AUTO) 6.7 % (2-12); NEUTROPHILS # (AUTO) 13.4 X10'3 (1.8-7.7); NEUTROPHILS % (AUTO) 78.3 % (42-75); PLATELET COUNT 475 X10'3 (140-440); RED BLOOD COUNT 4.76 X10'6 (4.70-6.10); WHITE BLOOD COUNT 17.1 X10'3 (4.5-11.0)
[2022-04-17 18:14] LABS: ALANINE AMINOTRANSFERASE 75 U/L (12-78); ALBUMIN 3.4 G/DL (3.4-5.0); ALBUMIN/GLOBULIN RATIO 0.7 (1.1-1.5); ALKALINE PHOSPHATASE 64 IU/L (46-116); ANION GAP 8 (8-16); ASPARTATE AMINO TRANSFERASE 26 U/L (10-37); BILIRUBIN,TOTAL 0.2 MG/DL (0.1-1.0); BLOOD UREA NITROGEN 21 MG/DL (7-18); BUN/CREATININE RATIO 18.8 (5.4-32.0); CALCIUM 9.4 MG/DL (8.5-10.1); CHLORIDE 97 MMOL/L (99-107); CREATININE 1.12 MG/DL (0.60-1.10); GLUCOSE 287 MG/DL (70-104); MAGNESIUM 2.1 MG/DL (1.5-2.4); POTASSIUM 4.3 MMOL/L (3.5-5.1); SODIUM 128 MMOL/L (135-145); TOTAL CARBON DIOXIDE 23.1 MMOL/L (24-32); TOTAL PROTEIN 8.6 G/DL (6.4-8.2); eGFR 69 ML/MIN
[2022-04-17] MEDS ORDERED: CefTRIAXone 2gm/D5W 50ml BAG 50 ML IV ONE (18:15)
[2022-04-17] MEDS ORDERED: methylPREDNISolone sod succ 125mg/2ml vial IV ONE (18:15)
[2022-04-17 19:20] LABS: CLARITY,URINE CLEAR (Clear); COLOR,URINE YELLOW (Yellow); GLUCOSE, URINE >=1000 mg/dl (Neg); KETONES,URINE NEGATIVE (Neg); LEUKOCYTE ESTERASE ,URINE NEGATIVE (Neg); NITRITES, URINE NEGATIVE (Neg); OCCULT BLOOD,URINE TRACE-INTACT (Neg); PROTEIN,URINE NEGATIVE (Neg); UROBILINOGEN,URINE 0.2 E.U/dL (0.2-1.0)
[2022-04-17 19:26] LABS: UA COLLECTION TYPE CLN CATCH MIDSTREAM
[2022-04-17 19:27] LABS: BACTERIA,URINE NONE SEEN /HPF (Neg); SQUAMOUS EPITHELIAL CELL,UR FEW /LPF (FEW)
[2022-04-17 19:28] LABS: WBC,URINE 0-4 /HPF (0-4)
[2022-04-17] MEDS ORDERED: acetaminophen 325mg tablet PO ONE (19:30)
[2022-04-17 19:32] LABS: TOTAL CELLS COUNTED 100
[2022-04-17 19:33] LABS: LARGE PLATELETS FEW; PLATELET ESTIMATE INCREASED; SMUDGE CELLS FEW; TOXIC GRANULATION 1+
[2022-04-17] MEDS ORDERED: azithromycin/NS 500mg/250ml 250 ML IV ONE (19:40)
[2022-04-17] MEDS ORDERED: potassium Cl 20 mEq SR tablet PO PRN ×2 (20:50)
[2022-04-17] MEDS ORDERED: magnesium Cl slow-release 64mg tablet PO PRN (20:50)
[2022-04-17] MEDS ORDERED: magnesium hydroxide 30ml (MOM) UD suspension PO PRN (20:50)
[2022-04-17] MEDS ORDERED: acetaminophen 325mg tablet PO PRN (20:50)
[2022-04-17] MEDS ORDERED: mag hydrox/Alum hydrox/simeth 30ml oral suspension PO PRN (20:50)
[2022-04-17] MEDS ORDERED: ondansetron/PF 4mg/2ml inj IV PRN (20:50)
[2022-04-17] MEDS ORDERED: potassium Cl 40MEQ/1/2NS 520ml 520 ML IV PRN (20:50)
[2022-04-17] MEDS ORDERED: normal saline 1000ml 1,000 ML IV SCH (20:50)
[2022-04-17] MEDS ORDERED: magnesium 4gm in 100ml NS 100 ML IV PRN (20:50)
[2022-04-17] MEDS ORDERED: HYDROcodone/acetaminophen 5mg/325mg tablet PO PRN (20:50)
[2022-04-17] MEDS ORDERED: dextrose 50%-water 50ml dispensing syringe IV PRN ×2 (20:55)
[2022-04-17] MEDS ORDERED: glucagon, human recombinant 1mg kit SUBCUT PRN (20:55)
[2022-04-17] MEDS ORDERED: MESSAGE TO PHARMACY PO ONE (20:55)
[2022-04-17] MEDS ORDERED: DEXTROSE 15 GM of carb/4 tabs (each vial/BOTTLE has 4 tablets) PO PRN ×2 (20:55)
[2022-04-17] MEDS: insulin glargine (Lantus) pen - multi-dose SQ SCH (21:00)
[2022-04-17] MEDS ORDERED: DULO30CA52 (21:45)
[2022-04-17] MEDS ORDERED: GLIP5TAB26 PO (21:45)
[2022-04-17] MEDS ORDERED: TRAZ-251 PO (21:45)
[2022-04-17] MEDS ORDERED: LISI5TAB22 (21:45)
[2022-04-17] MEDS ORDERED: INSU100I39 SQ (21:45)
[2022-04-17] MEDS ORDERED: ALBU2.5V10 (21:45)
[2022-04-17] MEDS ORDERED: EMPA10TA PO (21:45)
[2022-04-17] MEDS ORDERED: HYDR-3927 PO (21:45)
[2022-04-17] MEDS ORDERED: PRAV20TA4 PO (21:45)
[2022-04-17] MEDS ORDERED: CETI10TA14 (21:45)
[2022-04-17] MEDS ORDERED: BUDE10.27 (21:45)
[2022-04-17] MEDS ORDERED: NYST1000 PO (21:45)
--- NOTE | 2022-04-17 22:49 | NUR ---
patient placed on a hospital bed no needs at this time
[2022-04-17] MEDS ORDERED: ibuprofen tablet 400 MG TABLET PO PRN (23:20)
[2022-04-17] MEDS ORDERED: insulin glargine (Lantus) pen - multi-dose SQ PRN (23:20)
[2022-04-18] MEDS ORDERED: BUDE10.26 INH (02:50)
[2022-04-18] MEDS ORDERED: BACL10TA2 PO (02:50)
[2022-04-18 04:12] LABS: BASOPHILS % (AUTO) 0.1 % (0-1); EOSINOPHILS % (AUTO) 0 % (0-6); HEMATOCRIT 43.4 % (42.0-52.0); HEMOGLOBIN 14.4 g/dl (14.0-17.9); LYMPHOCYTES # (AUTO) 1.4 X10'3 (1.1-4.8); LYMPHOCYTES % (AUTO) 11.8 % (21-51); MEAN CORPUSCULAR HEMOGLOBIN 31.1 PG (27.0-31.0); MEAN CORPUSCULAR HGB CONC 33.1 g/dL (33.0-36.5); MEAN CORPUSCULAR VOLUME 94.1 FL (78-98); MEAN PLATELET VOLUME 7.2 FL (7.4-10.4); MONOCYTES # (AUTO) 0.1 X10'3 (0-0.9); NEUTROPHILS # (AUTO) 10.3 X10'3 (1.8-7.7); NEUTROPHILS % (AUTO) 87.1 % (42-75); PLATELET COUNT 440 X10'3 (140-440); RED BLOOD COUNT 4.62 X10'6 (4.70-6.10); WHITE BLOOD COUNT 11.8 X10'3 (4.5-11.0)
[2022-04-18 04:19] LABS: ALANINE AMINOTRANSFERASE 63 U/L (12-78); ALBUMIN/GLOBULIN RATIO 0.6 (1.1-1.5); ALKALINE PHOSPHATASE 60 IU/L (46-116); ANION GAP 7 (8-16); ASPARTATE AMINO TRANSFERASE 24 U/L (10-37); BILIRUBIN,TOTAL 0.2 MG/DL (0.1-1.0); BLOOD UREA NITROGEN 22 MG/DL (7-18); BUN/CREATININE RATIO 23.7 (5.4-32.0); CALCIUM 9.1 MG/DL (8.5-10.1); CHLORIDE 99 MMOL/L (99-107); CREATININE 0.93 MG/DL (0.60-1.10); GLUCOSE 344 MG/DL (70-104); MAGNESIUM 2.2 MG/DL (1.5-2.4); SODIUM 131 MMOL/L (135-145); TOTAL CARBON DIOXIDE 24.6 MMOL/L (24-32); TOTAL PROTEIN 8.1 G/DL (6.4-8.2); eGFR 86 ML/MIN
[2022-04-18] MEDS: K and/or MAG REPLACEMENT MC SCH ×2 (07:05→20:00)
[2022-04-18] MEDS: heparin, porcine 5000 units/ml vial SQ SCH ×2 (07:36→20:12)
[2022-04-18] MEDS: azithromycin 250mg tablet PO SCH (07:36)
[2022-04-18] MEDS: cholecalciferol (vitamin D3) 1,000 unit (25mcg) tablet PO SCH (07:37)
[2022-04-18] MEDS: losartan 25mg tablet PO SCH (07:37)
[2022-04-18] MEDS: fenofibrate 145mg tablet PO SCH (07:37)
[2022-04-18] MEDS: docusate sod 100mg capsule PO SCH ×2 (07:37→20:11)
[2022-04-18] MEDS: aspirin 81mg, enteric-coated 1 TAB TABLET.DR PO SCH (07:37)
[2022-04-18] MEDS: albuterol 2.5 MG/3 ML nebule NEB PRN (08:08)
[2022-04-18 08:59] VITALS: BP 151/76
[2022-04-18] MEDS: insulin Lispro (HumaLOG) vial - multi-dose SQ SCH ×3 (09:53→23:19)
[2022-04-18] MEDS ORDERED: guaiFENesin/DM/phenylephrine syrup 120ml bottle PO PRN (09:55)
[2022-04-18] MEDS ORDERED: guaiFENesin/DM 10ml UD oral syrup PO PRN (10:04)
[2022-04-18 11:50] VITALS: BP 129/80
[2022-04-18 15:06] VITALS: BP 119/72
[2022-04-18] MEDS: methylPREDNISolone sod succ 125mg/2ml vial IV SCH ×2 (16:15→23:59)
[2022-04-18 18:00] VITALS: BP 119/71
--- NOTE | 2022-04-18 18:40 | NUR ---
Problems reprioritized. Patient report given, questions answered & plan of care reviewed with JEROME, RN.
[2022-04-18] MEDS ORDERED: CefTRIAXone/D5W-Rocephin 1gm 50 ML IV SCH (19:00)
[2022-04-18] MEDS ORDERED: CefTRIAXone/D5W-Rocephin 1gm 50 ML IV ONE (19:28)
[2022-04-18] MEDS: insulin glargine (Lantus) pen - multi-dose SQ SCH (23:15)
[2022-04-19 00:18] VITALS: BP 143/79
--- NOTE | 2022-04-19 04:21 | NUR ---
Room 3020N Pt. is awake alert oriented x4 Spouse at bedside. Pt. able to move all extremities but short of breath with exertion also when with out 02. Ate 100% of pm meal. Out of bed to BSC voids per urinal yellow clear large amt. Had large BM. Pt.has frequent dry cough occasional rumble medicated for sore throat and cough relief. Had restful night plan for portable 02 PTOT and pain relief.
[2022-04-19 06:00] VITALS: BP 131/85
--- NOTE | 2022-04-19 06:41 | NUR ---
Patient in room PCU 3027. I have received report from Ning RN and had the opportunity to ask questions and assume patient care.
[2022-04-19 06:45] LABS: BASOPHILS # (AUTO) 0.1 X10'3 (0-0.2); BASOPHILS % (AUTO) 0.4 % (0-1); EOSINOPHILS % (AUTO) 0 % (0-6); HEMOGLOBIN 14.6 g/dl (14.0-17.9); LYMPHOCYTES # (AUTO) 1.8 X10'3 (1.1-4.8); LYMPHOCYTES % (AUTO) 11.3 % (21-51); MEAN CORPUSCULAR HGB CONC 33.9 g/dL (33.0-36.5); MEAN CORPUSCULAR VOLUME 94.3 FL (78-98); MEAN PLATELET VOLUME 7.1 FL (7.4-10.4); MONOCYTES # (AUTO) 0.4 X10'3 (0-0.9); MONOCYTES % (AUTO) 2.4 % (2-12); NEUTROPHILS # (AUTO) 13.4 X10'3 (1.8-7.7); NEUTROPHILS % (AUTO) 85.9 % (42-75); PLATELET COUNT 476 X10'3 (140-440); RED BLOOD COUNT 4.56 X10'6 (4.70-6.10); RED CELL DISTRIBUTION WIDTH 13.9 % (11.5-14.5); WHITE BLOOD COUNT 15.7 X10'3 (4.5-11.0)
[2022-04-19 07:11] LABS: ALANINE AMINOTRANSFERASE 44 U/L (12-78); ALBUMIN/GLOBULIN RATIO 0.6 (1.1-1.5); ALKALINE PHOSPHATASE 62 IU/L (46-116); ANION GAP 8 (8-16); ASPARTATE AMINO TRANSFERASE 18 U/L (10-37); BILIRUBIN,TOTAL 0.2 MG/DL (0.1-1.0); BLOOD UREA NITROGEN 31 MG/DL (7-18); BUN/CREATININE RATIO 34.8 (5.4-32.0); CHLORIDE 99 MMOL/L (99-107); CREATININE 0.89 MG/DL (0.60-1.10); GLUCOSE 350 MG/DL (70-104); MAGNESIUM 2.7 MG/DL (1.5-2.4); POTASSIUM 4.7 MMOL/L (3.5-5.1); SODIUM 132 MMOL/L (135-145); eGFR 90 ML/MIN
[2022-04-19] MEDS: K and/or MAG REPLACEMENT MC SCH (08:00)
[2022-04-19] MEDS: docusate sod 100mg capsule PO SCH (08:00)
[2022-04-19] MEDS ORDERED: LEVO750T68 PO (08:24)
[2022-04-19] MEDS ORDERED: PRED10TA23 PO (08:24)
[2022-04-19] MEDS: albuterol 2.5 MG/3 ML nebule NEB PRN (08:41)
[2022-04-19] MEDS: methylPREDNISolone sod succ 125mg/2ml vial IV SCH (08:41)
[2022-04-19] MEDS: aspirin 81mg, enteric-coated 1 TAB TABLET.DR PO SCH (08:51)
[2022-04-19 08:54] VITALS: BP_SYST 131
[2022-04-19] MEDS: heparin, porcine 5000 units/ml vial SQ SCH (08:54)
[2022-04-19] MEDS: losartan 25mg tablet PO SCH (08:54)
[2022-04-19] MEDS: azithromycin 250mg tablet PO SCH (08:55)
[2022-04-19] MEDS: cholecalciferol (vitamin D3) 1,000 unit (25mcg) tablet PO SCH (08:55)
[2022-04-19] MEDS: fenofibrate 145mg tablet PO SCH (08:56)
[2022-04-19] MEDS: insulin Lispro (HumaLOG) vial - multi-dose SQ SCH (09:01)
--- NOTE | 2022-04-19 10:02 | NUR ---
O2 Sat at rest on room air:__88_% If below 89%: Recovery O2 Sat at rest on __2_LPM:__92_%:___% via nasal cannula (mask/nasal cannula, etc..) No further documentation is necessary. If O2 Sat did not drop below 89% on room air,ambulate patient on room air. O2 Sat while ambulating on room air:___% Recovery O2 Sat while ambulating on ___LPM:___% No further documentation is necessary. If patient does not drop below 89% while ambulating, he/she does not qualify for home O2.
== END 2022-04-19 12:12 | disposition home or self-care (01) | DRG 139 ==
LOC: ER 16:38 → ED HOLD 20:53 → PCU 3S 04-18 08:46
PROVIDERS: ADMIT Internal Medicine; ATTEND Internal Medicine
DX: J18.9 Pneumonia, unspecified organism (principal); J96.01 Acute respiratory failure with hypoxia; Z20.822 Contact with and (suspected) exposure to COVID-19; E11.9 Type 2 diabetes mellitus without complications; E78.5 Hyperlipidemia, unspecified; I10 Essential (primary) hypertension; J44.0 Chronic obstructive pulmonary disease with (acute) lower respiratory infection; J44.1 Chronic obstructive pulmonary disease with (acute) exacerbation; Z79.4 Long term (current) use of insulin; Z79.82 Long term (current) use of aspirin; Z79.84 Long term (current) use of oral hypoglycemic drugs; Z79.899 Other long term (current) drug therapy; Z86.16 Personal history of COVID-19; Z86.711 Personal history of pulmonary embolism; Z88.8 Allergy status to other drugs, medicaments and biological substances
CPT/HCPCS: 36415; 71045; 71250; 80053; 81001; 82948; 83605; 83735; 83880; 84145; 84484; 85007; 85025; 87040; 87081; 87502; 87503; 87811; 93005; 94640; 94760; 99285; A4615; G0378; J0456; J0696; J1644; J1815; J2930; J7030

== ENCOUNTER → 2023-11-14 | Outpatient (CLI) | payer MEDICAID ==
[~2023-11-14] MED LIST changes: +ALBU2.5V10; -APIX5TAB3 PO; -ATOR40TA72 PO; +BACL10TA2 PO; +BUDE10.26 INH; +CETI10TA14; +DULO30CA52; +EMPA10TA PO; +GLIP5TAB26 PO; +HYDR-3927 PO; +INSU100I39 SQ; +LISI5TAB22; -METF-900 PO; +PRAV20TA4 PO; +TRAZ-251 PO; -VITA1TAB20 PO; +[UNRECOGNIZED DRUG - CODE] PO
== END | disposition home or self-care (01) ==
LOC: CARD DIAG 09:46
PROVIDERS: ATTEND Family Medicine
DX: I08.0 Rheumatic disorders of both mitral and aortic valves (principal); R94.31 Abnormal electrocardiogram [ECG] [EKG]; I45.10 Unspecified right bundle-branch block
CPT/HCPCS: 93306